=== PATIENT | male | born 1945 | race Caucasian/White ===

== ENCOUNTER → 2018-05-16 10:31 | Emergency (ER) | payer MEDICARE, MEDICAID ==
[~2018-05-16 10:31] MED LIST: Albuterol/Ipratropium NEB.SOL* Albuterol 2.5 MG/Ipratropium 0.5 MG 3 ML INH ONE; Levofloxacin 750 MG IVPREMIX(* 750 MG/150 ML BAG IVPB ONE; Levofloxacin TAB* 250 MG PO ONE; NS 0.9% 1000 ML* 1,000 ML IV ONE; methylPREDNISolone 125 MG* 2 ML VIAL IV ONE
--- OUTSIDE RECORDS SUMMARY | 2018-05-16 10:42 | XMS REPORT | Continuity of Care Document ---
:1945 External Reference #:[id number] Author Name Tori Obrien Care Team Providers Name Role Phone Alfa Barone MD Primary Care Physician Unavailable Payers Type Date Identification Numbers Payment Provider Subscriber Effective: 2007 Policy Number: [id number] Medicare [employer] [place] PayID: [id number] [address] [place] [address] Policy Number: [id number] Medicaid [place] PayID: [id number] [address] [place] [address] Effective: 2013 Policy Number: [id number] Va/ Non Va Care [employer] Expires: 2014 PayID: [id number] [address] [address] [place] [address] Advance Directives Type Date Description Status Comment Other Directive 01/18/2015 Power Of Test Center Administrator Current and Verified Other Directive 01/18/2015 Health Care Proxy Current and Verified Other Directive 01/18/2015 Living Will Current and Verified Problems Date Description Provider Status Onset: 01/13/2015 Idiopathic peripheral neuropathy Anirudh Larios MD Active Onset: 01/13/2015 Dementia Unspecified Without Anirudh Larios MD Active Behavioral Disturbance Onset: 04/06/2015 Hypo-osmolality and or hyponatremia Anirudh Larios MD Active Onset: 04/06/2015 Unspecified dementia without Anirudh Larios MD Active behavioral disturbance Onset: 04/21/2015 Essential hypertension Nic Hinton DO 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 Active Onset: 03/20/2016 Insomnia Alfa Barone M.D. Active Onset: 04/18/2016 Acquired trigger finger Alfa Barone M.D. Active Onset: 06/11/2016 Cervical disc disorder Alfa Barone M.D. Active Onset: 07/01/2016 Diabetic peripheral neuropathy Anirudh Larios MD Active associated with type 2 diabetes mellitus Onset: 10/16/2016 Solitary nodule of lung Alfa Barone M.D. Active Onset: 12/18/2016 Mixed hyperlipidemia Alfa Barone M.D. Active Family History Date Family Member(s) Problem(s) Comments General Diabetes Father due to Heart Disease () - Sister at age 68 in her sleep. One brother at age 60 of [place]. Another brother age 63 of [place]. Mother of CHF. Father age 51 of [place]. Mother due to COPD () Social History Type Date Description Comments Sex Unknown Marital Status Lives With Occupation Retired Tobacco Use Start: Unknown current cigarette Pt denies smoking pipe, smoker cigar, or using chewing tobacco. Smoking Status Reviewed: 04/22/18 current cigarette Pt denies smoking pipe, smoker cigar, or using chewing tobacco. ETOH Use Has consumed alcohol Past alcohol abuse in the past Tobacco Use Start: Unknown Patient is a current Smokes approximately smoker, smokes every 1/2 PPD day Recreational Drug Use Denies Drug Use Exercise Type/Frequency Does not exercise Allergies, Adverse Reactions, Alerts Description No Known Drug Allergies Medications Medication Date Status Form Strength Qnty SIG Indications Ordering Provider Gabapentin 01/13/ Active Capsules 300mg 360ca 1 by mouth in 2017 ps in the Harriet, morning and 3 MD at at night Incruse Ellipta 11/27/ Active Aerosol 62.5mcg/I 30uni inhale 1 puff 2017 nh ts by mouth Abisai every day Wendy Shower Chair 11/25/ Active 1unit Use as [place] 2017 venkata Barone M.D. Sertraline HCL 08/29/ Active Tablets 100mg 30tab 1 by mouth F33.0 Alfa 2017 s every day Wendy Baorne Namenda XR 08/23/ Active Caps ER 28mg 30cap 1 by mouth Anirudh 2016 24HR s every day MD Harriet Sertraline HCL 08/23/ Active Tablets 50mg 30tab 1 by mouth Alfa 2016 s every day Wendy Barone Bupropion HCL 01/30/ Active Tablets 300mg 30tab 1 tab in in F33.0 Zsofia ER (XL) 2015 ER 24HR s the morning Juanjo, MINE PROMOTOR Xopenex HFA 10/10/ Active Aerosol 45mcg/Act 45uni inhale two J44.9 Alfa 2015 ts puffs by Pachika mouth every , M.DKarolina four hours as needed Trazodone HCL 10/10/ Active Tablets 100mg 90tab take 1 tablet G47.00 Rodrick 2015 s by mouth Sean Farr, Every Night M.DKarolina,FACP AT Bedtime Symbicort 06/22/ Active Aerosol 80-4.5mcg 20.4u inhale 2 J44.9 Alfa 2015 /Act nits puffs by Pachika mouth twice a , M.D. day Hydrocodone-Julio C / Active Tablets 5-325mg 30tab 1 by mouth Alfa taminophen 0000 s every 12 Pachikara hours prn. , Wendy Vitamin D / Active Capsules 2000Unit 180ca 2 by mouth Alfa 0000 ps every day Wendy Barone Aspir-Low / Active Tablets 81mg 1 by mouth Unknown [address] every day Tamsulosin HCL / Active Capsules 0.4mg 90cap 1 by mouth [place] 0000 s every day Wendy Barone Verapamil HCL / Active Caps ER 120mg 90cap take 1 [place] ER 0000 24HR s capsule by Pachikara mouth once , M.D. daily Pravastatin / Active Tablets 40mg 30tab 1 tablet Alfa Sodium 0000 s daily at [facility] bedtime , M.DKarolina Namenda XR 07/16/ Hx Caps ER 7&14&21&2 1pack follow Anirudh Titration Pack 2016 - 24HR 8mg instructions Harriet 08/23/ on package 2016 Ketoconazole 01/30/ Hx Cream 2% 120gm apply twice a B37.9 Alfa 2015 Pachikara 07/01/ Wendy 2015 Sertraline HCL 09/13/ Hx Tablets 50mg 90tab 1 by mouth Alfa 2015 - s every day Pachikara 07/01/ Wendy 2015 Sertraline HCL 09/12/ Hx Tablets 50mg 30tab 1 by mouth Alfa 2015 - s every day Abisai 09/12/ Wendy 2015 Incruse Ellipta 08/16/ Hx Aerosol 62.5mcg/I 90uni one Alfa 2015 - nh ts inhalation Kileyra 08/19/ daily , Wendy 2015 Tudorza 07/11/ Hx Aerosol 400mcg/Ac 1unit 1 puff twice Alfa Flanagan 2015 - t s a day Pachikara 08/08/ Wendy 2015 Trazodone HCL 05/03/ Hx Tablets 50mg 180ta 1-2 tablet at G47.00 Alfa 2014 Thea bs bedtime as Pachikara 10/10/ needed , Wendy 2015 Proair HFA 04/19/ Hx Aerosol 108(90Bas 8.500 2 puffs ih J44.9 Alfa 2014 - e) gm every 4 hours Patriciaika 08/08/ mcg/Act as needed , Wendy 2015 Zolpidem 04/19/ Hx Tablets 10mg 30tab 1/2 to 1 tab G47.00 Alfa Tartrate 2014 - s by mouth Abisai 05/03/ every night Wendy 2014 at bedtime as needed Spiriva 04/19/ Hx Capsules 18mcg 90cap inhale J44.9 Zsofia Handihaler 2014 - contents of 1 Juanjo, 11/27/ capsule by MINE PROMOTOR 2018 mouth every morning Gabapentin 04/06/ Hx Capsules 300mg 270ca Take One Alfa 2014 - ps Capsule Every Pachikara 01/13/ Morning And 2 , Wendy 2018 Capsules Every Night Gabapentin 03/01/ Hx Capsules 100mg 90cap 1 by mouth Anirudh hastings every morning Harriet, 04/06/ and 2 every 2014 night Shower CH 03/01/ Hx One shower chair G60.8 Anirudh Larios, 01/12/ 2018 Amitriptyline 01/27/ Hx Tablets 10mg 120ta take 2 tabs Anirudh HCL 2015 - bs every night Harriet, 05/03/ at bedtime 2014 Namenda XR 10/04/ Hx Caps ER 7&14&21&2 1pack follow Anirudh Titration Pack 2015 - 24HR 8mg instructions Harriet, 10/31/ on package 2014 Diazepam 09/14/ Hx Tablets 2mg 4tabs 4 pills by 780.93 Anirudh 2015 - mouth prior Harriet, 10/31/ to mri 2014 Alprazolam / Hx Tablets 0.25mg as needed Unknown 0000 - 2014 Gabapentin / Hx Tablets 300mg 1 tab every Unknown 0000 - morning and 2 03/01/ tabs every 2014 night Citalopram / Hx Tablets 40mg 90tab 1 by mouth Alfa Hydrobromide 0000 - s every day Abisai 09/13/ Wendy 2015 Lisinopril / Hx Tablets 20mg 1/2 by mouth Unknown 0000 - every day 2014 Pravastatin / Hx Tablets 40mg 1 tablet Unknown Sodium 0000 - daily 2014 Atorvastatin / Hx Tablets 80mg 1 by mouth Unknown Calcium 0000 - every day 2016 Namenda XR / Hx Caps ER 28mg 1 by mouth Unknown 0000 - 24HR every day 2014 Bupropion HCL / Hx Tablets 150mg 180ta 1 by mouth Alfa ER (SR) 0000 - ER 12HR bs twice a day Abisai 01/30Wendy Currie 2016 Immunizations CPT Code Status Date Vaccine Reaction Lot # [id number] Given 01/07/2018 Tdap - [id number] Tetanus/Diptheria/Acellular Pertussis 42531 Given 09/18/2016 Pneumococcal Conjugate No immediate reaction - [id number] Vaccine 13 Valent For pw Intramuscular Use [id number] Given 03/05/2016 Fluzone Vaccine [id number] Given 03/22/2015 Influenza Virus 3Yrs & Over Vital Signs Date Vital Result Comment 04/22/2018 8:24am Height 69 inches 5'9" Weight 210.00 lb Heart Rate 68 /min BP Systolic 113 mmHg BP Diastolic 71 mmHg Body Temperature 97.3 F O2 % BldC Oximetry 94 % BMI (Body Mass Index) 31.0 kg/m2 01/13/2018 9:02am Height 69 inches 5'9" Weight 206.38 lb Heart Rate 70 /min BP Systolic 124 mmHg BP Diastolic 80 mmHg BMI (Body Mass Index) 30.5 kg/m2 01/07/2018 8:29am Height 69 inches 5'9" Weight 208.00 lb Heart Rate 87 /min BP Systolic Sitting 117 mmHg BP Diastolic Sitting 71 mmHg O2 % BldC Oximetry 94 % BMI (Body Mass Index) 30.7 kg/m2 10/07/2017 9:32am Height 69 inches 5'9" Weight 214.00 lb Heart Rate 80 /min BP Systolic 144 mmHg BP Diastolic 80 mmHg O2 % BldC Oximetry 97 % BMI (Body Mass Index) 31.6 kg/m2 08/29/2017 9:55am Height 69.25 inches 5'9.25" Weight 218.25 lb Heart Rate 103 /min BP Systolic Sitting 148 mmHg BP Diastolic Sitting 86 mmHg O2 % BldC Oximetry 91 % BMI (Body Mass Index) 32.0 kg/m2 03/20/2017 10:16am Height 69.25 inches 5'9.25" Weight 217.00 lb w/ shoes Heart Rate 82 /min reg BP Systolic Sitting 150 mmHg Lue, reg cuff BP Diastolic Sitting 80 mmHg Lue, reg cuff Respiratory Rate 16 /min O2 % BldC Oximetry 98 % on Ra BMI (Body Mass Index) 31.8 kg/m2 12/18/2016 8:51am Height 69.25 inches 5'9.25" Weight 210.00 lb Heart Rate 78 /min BP Systolic Sitting 130 mmHg BP Diastolic Sitting 76 mmHg Body Temperature 97.2 F O2 % BldC Oximetry 95 % BMI (Body Mass Index) 30.8 kg/m2 12/04/2016 10:16am Height 69.25 inches 5'9.25" Weight 207.00 lb Heart Rate 76 /min BP Systolic Sitting 126 mmHg BP Diastolic Sitting 80 mmHg BMI (Body Mass Index) 30.3 kg/m2 10/29/2016 7:56am Height 69.25 inches 5'9.25" Weight 209.00 lb Heart Rate 86 /min BP Systolic Sitting 118 mmHg BP Diastolic Sitting 70 mmHg Respiratory Rate 16 /min O2 % BldC Oximetry 97 % BMI (Body Mass Index) 30.6 kg/m2 10/16/2016 8:01pm Weight 209.00 lb BP Systolic Sitting 142 mmHg BP Diastolic Sitting 89 mmHg Body Temperature 98.0 F 09/18/2016 8:35am Weight 216.25 lb Heart Rate 82 /min BP Systolic 138 mmHg BP Diastolic 80 mmHg Body Temperature 97.6 F O2 % BldC Oximetry 96 % 07/01/2016 2:14pm Height 69.25 inches 5'9.25" Weight 216.12 lb Heart Rate 82 /min BP Systolic Sitting 128 mmHg BP Diastolic Sitting 82 mmHg BMI (Body Mass Index) 31.7 kg/m2 06/26/2016 9:27am Weight 215.00 lb Heart Rate 93 /min BP Systolic Sitting 110 mmHg BP Diastolic Sitting 76 mmHg Body Temperature 97.6 F O2 % BldC Oximetry 98 % 06/11/2016 1:34pm Height 69.5 inches 5'9.50" Weight 222.00 lb Heart Rate 74 /min BP Systolic Sitting 143 mmHg BP Diastolic Sitting 84 mmHg Body Temperature 97.6 F O2 % BldC Oximetry 98 % BMI (Body Mass Index) 32.3 kg/m2 04/18/2016 3:44pm Weight 222.12 lb Heart Rate 100 /min BP Systolic Sitting 157 mmHg BP Diastolic Sitting 93 mmHg Body Temperature 96.6 F O2 % BldC Oximetry 98 % 03/20/2016 8:52am Weight 229.00 lb Heart Rate 78 /min BP Systolic Sitting 138 mmHg BP Diastolic Sitting 80 mmHg Body Temperature 97.6 F O2 % BldC Oximetry 98 % 01/31/2016 2:20pm Height 69.5 inches 5'9.50" Weight 222.00 lb Heart Rate 96 /min BP Systolic Sitting 136 mmHg BP Diastolic Sitting 84 mmHg Respiratory Rate 15 /min Body Temperature 97.8 F O2 % BldC Oximetry 97 % BMI (Body Mass Index) 32.3 kg/m2 12/13/2015 2:22pm Heart Rate 83 /min BP Systolic Sitting 120 mmHg BP Diastolic Sitting 80 mmHg Body Temperature 98.5 F O2 % BldC Oximetry 96 % 10/11/2015 7:57am Weight 229.00 lb Heart Rate 60 /min BP Systolic Sitting 115 mmHg BP Diastolic Sitting 63 mmHg Body Temperature 97.8 F O2 % BldC Oximetry 98 % 10/02/2015 10:22am Height 70 inches 5'10" Weight 228.00 lb Heart Rate 76 /min BP Systolic Sitting 126 mmHg BP Diastolic Sitting 70 mmHg Respiratory Rate 14 /min BMI (Body Mass Index) 32.7 kg/m2 08/09/2015 4:23pm Height 70 inches 5'10" Weight 220.00 lb Heart Rate 71 /min BP Systolic Sitting 126 mmHg BP Diastolic Sitting 72 mmHg Body Temperature 98.8 F O2 % BldC Oximetry 94 % BMI (Body Mass Index) 31.6 kg/m2 06/22/2015 9:12am Height 70 inches 5'10" Weight 213.50 lb Heart Rate 78 /min BP Systolic 130 mmHg BP Diastolic 80 mmHg Respiratory Rate 14 /min O2 % BldC Oximetry 92 % BMI (Body Mass Index) 30.6 kg/m2 Neck Circumference in inches 16.5 05/10/2015 8:33am Height 70 inches 5'10" Weight 201.00 lb w/o shoes Heart Rate 78 /min BP Systolic Sitting 136 mmHg Rue, reg cuff BP Diastolic Sitting 86 mmHg Rue, reg cuff BP Systolic Standing 130 mmHg Rue BP Diastolic Standing 86 mmHg Rue Respiratory Rate 16 /min BMI (Body Mass Index) 28.8 kg/m2 Ejection Fraction 60-65% as of 05/05/15 echo 05/03/2015 4:03pm Height 70 inches 5'10" Weight 203.00 lb Heart Rate 64 /min BP Systolic Sitting 128 mmHg BP Diastolic Sitting 84 mmHg Body Temperature 98.2 F O2 % BldC Oximetry 98 % BMI (Body Mass Index) 29.1 kg/m2 04/21/2015 9:05am Height 70 inches 5'10" Weight 197.75 lb Heart Rate 74 /min BP Systolic Sitting 130 mmHg left arm, reg cuff BP Diastolic Sitting 82 mmHg left arm, reg cuff BMI (Body Mass Index) 28.4 kg/m2 04/19/2015 3:01pm Weight 201.00 lb Heart Rate 84 /min BP Systolic Sitting 137 mmHg BP Diastolic Sitting 84 mmHg Body Temperature 96.5 F 04/06/2015 1:39pm Height 70 inches 5'10" Weight 198.00 lb Heart Rate 72 /min BP Systolic Sitting 142 mmHg BP Diastolic Sitting 84 mmHg Respiratory Rate 16 /min BMI (Body Mass Index) 28.4 kg/m2 03/01/2015 9:20am Height 70 inches 5'10" Weight 180.00 lb Heart Rate 72 /min BP Systolic Sitting 122 mmHg BP Diastolic Sitting 84 mmHg Respiratory Rate 14 /min BMI (Body Mass Index) 25.8 kg/m2 01/13/2015 1:43pm Height 70 inches 5'10" Weight 191.00 lb Heart Rate 68 /min BP Systolic Standing 136 mmHg BP Diastolic Standing 84 mmHg Respiratory Rate 16 /min BMI (Body Mass Index) 27.4 kg/m2 11/01/2014 2:21pm Height 70 inches 5'10" Weight 189.00 lb Heart Rate 76 /min BP Systolic Sitting 114 mmHg BP Diastolic Sitting 66 mmHg Respiratory Rate 16 /min BMI (Body Mass Index) 27.1 kg/m2 09/14/2014 10:11am Height 70 inches 5'10" Weight 190.00 lb Heart Rate 68 /min BP Systolic Sitting 134 mmHg BP Diastolic Sitting 76 mmHg Respiratory Rate 16 /min BMI (Body Mass Index) 27.3 kg/m2 Results Test Date Facility Test Result H/L Range Note Basic Metabolic 01/01/2018 Sodium 135 mmol/L N 135- 145 Panel [address] [place] [address] [phone] Potassium 4.4 mmol/L N 3.5-5.0 Chloride 100 mmol/L Low 101-111 Co2 Carbon Dioxide 26 mmol/L N 22-32 Anion Gap 9 mmol/L N 2-11 Glucose 102 mg/dL High 70-100 Blood Urea Nitrogen 5 mg/dL Low 6-24 Creatinine 0.65 mg/dL Low 0.67-1.17 BUN/Creatinine Ratio 7.7 Low 8-20 Calcium 8.6 mg/dL N 8.6-10.3 Egfr Non- 120.4 >60 Egfr 145.7 >60 1 Lipid Profile 08/29/2017 Triglycerides 78 mg/dL 2, 3 (Trig/Chol/HDL) [address] [place] [address] [phone] Cholesterol 146 mg/dL 4 HDL Cholesterol 40.2 mg/dL 5 LDL Cholesterol 90 mg/dL 6 Comp Metabolic Panel 08/29/2017 Sodium 133 mmol/L Low 139-145 [address] [place] [address] [phone] Potassium 4.6 mmol/L N 3.5-5.0 Chloride 98 mmol/L Low 101-111 Co2 Carbon Dioxide 26 mmol/L N 22-32 Anion Gap 9 mmol/L N 2-11 Glucose 85 mg/dL N 70-100 Blood Urea Nitrogen 5 mg/dL Low 6-24 Creatinine 0.70 mg/dL N 0.67-1.17 BUN/Creatinine Ratio 7.1 Low 8-20 Calcium 9.0 mg/dL N 8.6-10.3 Total Protein 6.5 g/dL N 6.4-8.9 Albumin 3.9 g/dL N 3.2-5.2 Globulin 2.6 g/dL N 2-4 Albumin/Globulin Ratio 1.5 N 1-3 Total Bilirubin 0.60 mg/dL N 0.2-1.0 Alkaline Phosphatase 75 U/L N 34-104 Alt 7 U/L N 7-52 Ast 12 U/L Low 13-39 Egfr Non- 110.5 >60 Egfr 142.2 >60 7 Laboratory test 12/18/2016 Osmolality 164 mOsm/kg N 150 - [address] Urine 1150 [place] [address] [phone] Sodium Random Urine 23 mmol/L N Osmolality Serum 270 mOsm/kg Low 275 - 295 9 Comp Metabolic Panel 12/16/2016 Sodium 121 mmol/L Low 133-[address] [place] [address] [phone] Potassium 4.4 mmol/L N 3.5-5.0 Chloride 93 mmol/L Low 101-111 Co2 Carbon Dioxide 26 mmol/L N 22-32 Anion Gap 2 mmol/L N 2-11 Glucose 77 mg/dL N 70-100 Blood Urea Nitrogen 5 mg/dL Low 6-24 Creatinine 0.74 mg/dL N 0.67-1.17 BUN/Creatinine Ratio 6.8 Low 8-20 Calcium 8.6 mg/dL N 8.6-10.3 Total Protein 6.0 g/dL Low 6.4-8.9 Albumin 3.6 g/dL N 3.2-5.2 Globulin 2.4 g/dL N 2-4 Albumin/Globulin Ratio 1.5 N 1-3 Total Bilirubin 0.70 mg/dL N 0.2-1.0 Alkaline Phosphatase 60 U/L N 34-104 Alt 6 U/L Low 7-52 Ast 10 U/L Low 13-39 Egfr Non- 104.0 N >60 Egfr 133.7 N >60 10 Laboratory 09/19/2016 Hepatitis C Nonreactive N Nonreactive test finding [address] [place] [address] [phone] Basic 06/26/2016 Sodium 130 mmol/L Low 133-[address] [place] [address] [phone] Potassium 4.2 mmol/L N 3.5-5.0 Chloride 97 mmol/L Low 101-111 Co2 Carbon Dioxide 27 mmol/L N 22-32 Anion Gap 6 mmol/L N 2-11 Glucose 96 mg/dL N 70-100 Blood Urea Nitrogen 6 mg/dL N 6-24 Creatinine 1.06 mg/dL N 0.67-1.17 BUN/Creatinine Ratio 5.7 Low 8-20 Calcium 9.1 mg/dL N 8.6-10.3 Egfr Non- 68.9 N >60 Egfr 88.6 N >60 11 Basic Metabolic 04/29/2016 Sodium 129 mmol/L Low 133-[address] [place] [address] [phone] Potassium 4.3 mmol/L N 3.5-5.0 Chloride 99 mmol/L Low 101-111 Co2 Carbon Dioxide 24 mmol/L N 22-32 Anion Gap 6 mmol/L N 2-11 Glucose 80 mg/dL N 70-100 Blood Urea Nitrogen 6 mg/dL N 6-24 Creatinine 0.81 mg/dL N 0.67-1.17 BUN/Creatinine Ratio 7.4 Low 8-20 Calcium 8.9 mg/dL N 8.6-10.3 Egfr Non- 93.9 N >60 Egfr 120.8 N >60 12 Basic Metabolic 01/30/2016 Sodium 132 mmol/L Low 133-[address] [place] [address] [phone] Potassium 4.4 mmol/L N 3.5-5.0 Chloride 96 mmol/L Low 101-111 Co2 Carbon Dioxide 29 mmol/L N 22-32 Anion Gap 7 mmol/L N 2-11 Glucose 81 mg/dL N 70-100 Blood Urea Nitrogen 9 mg/dL N 6-24 Creatinine 0.75 mg/dL N 0.67-1.17 BUN/Creatinine Ratio 12.0 N 8-20 Calcium 9.1 mg/dL N 8.6-10.3 Egfr Non- 102.7 N >60 Egfr 132.0 N >60 13 Lipid Profile 01/30/2016 Triglycerides 82 mg/dL N 14 (Trig/Chol/HDL) [address] [place], [place] [id number] [phone] Cholesterol 123 mg/dL N 15 HDL Cholesterol 34.5 mg/dL N 16 LDL Cholesterol 72 mg/dL N 17 Urine Microalbumin 01/30/2016 Urine Creatinine 30.61 mg/dL N Random [address] [place] [address] [phone] Ur Microalbumin (mg/L) < 15.0 mg/L N Urine Microalbumin/Creatinine TNP ug/mg N <31 18 Sodium 24HR Urine 11/02/2015 Urine Collection Time 24 [address] [place] [address] [phone] Urine Total Volume 2000 mL N Urine Random Sodium 24 mmol/L N Urine Sodium/24HR 48 mmol/24 N 40-220 Laboratory test 11/02/2015 Osmolality 220 mOsm/kg N 150-[address] [place] [address] [phone] Osmolality Serum 277 mOsm/kg N 275-295 Comp Metabolic Panel 10/11/2015 Sodium 127 mmol/L Low 133-145 [address] [place] [address] [phone] Potassium 4.5 mmol/L N 3.5-5.0 Chloride 94 mmol/L Low 101-111 Co2 Carbon Dioxide 27 mmol/L N 22-32 Anion Gap 6 mmol/L N 2-11 Glucose 73 mg/dL N 70-100 Blood Urea Nitrogen 7 mg/dL N 6-24 Creatinine 0.81 mg/dL N 0.67-1.17 BUN/Creatinine Ratio 8.6 N 8-20 Calcium 8.4 mg/dL Low 8.6-10.3 Total Protein 6.4 g/dL N 6.4-8.9 Albumin 4.0 g/dL N 3.2-5.2 Globulin 2.4 g/dL N 2-4 Albumin/Globulin Ratio 1.7 N 1-3 Total Bilirubin 0.40 mg/dL N 0.2-1.0 Alkaline Phosphatase 60 U/L N 34-104 Alt 7 U/L N 7-52 Ast 11 U/L Low 13-39 Egfr Non- 93.9 N >60 Egfr 120.8 N >60 19 Laboratory test 06/29/2015 Surgical SEE RESULT [address] [place] [address] [phone] Basic Metabolic 05/23/2015 Sodium 131 mmol/L Low 133-[address] [place] [address] [phone] Potassium 5.0 mmol/L N 3.5-5.0 Chloride 99 mmol/L Low 101-111 Co2 Carbon Dioxide 28 mmol/L N 22-32 Anion Gap 4 mmol/L N 2-11 Glucose 75 mg/dL N 70-100 Blood Urea Nitrogen 6 mg/dL N 6-24 Creatinine 0.83 mg/dL N 0.67-1.17 BUN/Creatinine Ratio 7.2 Low 8-20 Calcium 8.7 mg/dL N 8.6-10.3 Egfr Non- 91.6 N >60 Egfr 117.8 N >60 21 Basic Metabolic 05/18/2015 Sodium 131 mmol/L Low 133-[address] [place] [address] [phone] Potassium 4.8 mmol/L N 3.5-5.0 Chloride 99 mmol/L Low 101-111 Co2 Carbon Dioxide 26 mmol/L N 22-32 Anion Gap 6 mmol/L N 2-11 Glucose 80 mg/dL N 70-100 Blood Urea Nitrogen 6 mg/dL N 6-24 Creatinine 0.80 mg/dL N 0.67-1.17 BUN/Creatinine Ratio 7.5 Low 8-20 Calcium 8.7 mg/dL N 8.6-10.3 Egfr Non- 95.6 N >60 Egfr 122.9 N >60 22 Basic Metabolic 05/03/2015 Sodium 130 mmol/L Low 133-[address] [place] [address] [phone] Potassium 4.8 mmol/L N 3.5-5.0 Chloride 97 mmol/L Low 101-111 Co2 Carbon Dioxide 27 mmol/L N 22-32 Anion Gap 6 mmol/L N 2-11 Glucose 74 mg/dL N 70-100 Blood Urea Nitrogen 5 mg/dL Low 6-24 Creatinine 0.84 mg/dL N 0.67-1.17 BUN/Creatinine Ratio 6.0 Low 8-20 Calcium 8.7 mg/dL N 8.6-10.3 Egfr Non- 90.3 N >60 Egfr 116.2 N >60 23 Laboratory test 04/19/2015 Tube Cleaner In House Hemoglobin A1c 4.7 Low 5-7 finding Laboratory test 04/19/2015 Osmolality Serum 270 Low 275-[address] mOsm/[place] [address] [phone] Comp Metabolic 04/19/2015 Sodium 128 mmol/L Low 133 -[address] [place] [address] [phone] Potassium 4.3 mmol/L N 3.5-5.0 Chloride 95 mmol/L Low 101-111 Co2 Carbon Dioxide 27 mmol/L N 22-32 Anion Gap 6 mmol/L N 2-11 Glucose 71 mg/dL N 70-100 Blood Urea Nitrogen 5 mg/dL Low 6-24 Creatinine 0.81 mg/dL N 0.67-1.17 BUN/Creatinine Ratio 6.2 Low 8-20 Calcium 8.7 mg/dL N 8.6-10.3 Total Protein 6.2 g/dL Low 6.4-8.9 Albumin 3.9 g/dL N 3.2-5.2 Globulin 2.3 g/dL N 2-4 Albumin/Globulin Ratio 1.7 N 1-3 Total Bilirubin 0.60 mg/dL N 0.2-1.0 Alkaline Phosphatase 62 U/L N 34-104 Alt 9 U/L N 7-52 Ast 12 U/L Low 13-39 Egfr Non- 94.2 N >60 Egfr 121.2 N >60 24 Laboratory test 04/19/2015 Cortisol 5.15 ?g/dL N [address] [place] [address] [phone] Laboratory test 04/19/2015 Osmolality Urine 234 mOsm/ kg N 150-[address] [place] [address] [phone] Sodium Random Urine 28 mmol/L N BMP Basic Metabolic 04/07/2015 Sodium 127 mmol/L Low 133-145 Panel (8) [address] [place] [address] [phone] Potassium 4.6 mmol/L N 3.5-5.0 Chloride 94 mmol/L Low 101-111 Co2 Carbon Dioxide 27 mmol/L N 22-32 Anion Gap 6 mmol/L N 2-11 Glucose 80 mg/dL N 70-100 Blood Urea Nitrogen 4 mg/dL Low 6-24 Creatinine 0.83 mg/dL N 0.67-1.17 BUN/Creatinine Ratio 4.8 Low 8-20 Calcium 8.7 mg/dL N 8.6-10.3 Egfr Non- 91.6 N >60 Egfr 117.8 N >60 26 Amitriptyline Level 03/30/2015 Amitriptyline 248 ng/ mL N 27 [address] [place] [address] [phone] Nortriptyline 29 ng/mL Abnormal 28 Amitriptyline+Nortriptyline 277 ng/mL Abnormal 29 Comp Metabolic Panel 03/30/2015 Sodium 125 mmol/L Low 133-145 [address] [place] [address] [phone] Potassium 4.8 mmol/L N 3.5-5.0 Chloride 93 mmol/L Low 101-111 Co2 Carbon Dioxide 27 mmol/L N 22-32 Anion Gap 5 mmol/L N 2-11 Glucose 77 mg/dL N 70-100 Blood Urea Nitrogen 6 mg/dL N 6-24 Creatinine 0.77 mg/dL N 0.67-1.17 BUN/Creatinine Ratio 7.8 Low 8-20 Calcium 8.7 mg/dL N 8.6-10.3 Total Protein 6.6 g/dL N 6.4-8.9 Albumin 3.8 g/dL N 3.2-5.2 Globulin 2.8 g/dL N 2-4 Albumin/Globulin Ratio 1.4 N 1-3 Total Bilirubin 0.40 mg/dL N 0.2-1.0 Alkaline Phosphatase 93 U/L N 34-104 Alt 17 U/L N 7-52 Ast 13 U/L N 13-39 Egfr Non- 99.9 N >60 Egfr 128.4 N >60 30 Laboratory test 09/29/2014 TSH (Thyroid 0.69 IU/mL N 0.34-5.[address] [place] [address] Horm) [phone] Vitamin B12 325 pg/mL N 180-914 31 Folate 14.12 ng/mL N >3.99 Ammonia 46 mol/L N 16-53 1 Because ethnic data is not always readily available, this report includes an eGFR for both -Americans and non- Americans. The National Kidney Disease Education Program (NKDEP) does not endorse the use of the MDRD equation for patients that are not between the ages of 18 and 70, are , have extremes of body size, muscle mass, or nutritional status, or are non- or non-. According to the [employer], irrespective of diagnosis, the stage of the disease is based on the level of kidney function: Stage Description GFR(mL/min/1.73 m(2)) 1 Kidney damage with normal or decreased GFR 90 2 Kidney damage with mild decrease in GFR 60-89 3 Moderate decrease in GFR 30-59 4 Severe decrease in GFR 15-29 5 Kidney failure <15 (or dialysis) 2 FASTING 3 Desirable: <150 Borderline High: 150-199 High: 200-499 Very High: >500 4 Desirable: <200 Borderline High: 200-239 High: >239 5 Low: <40 Desirable: 40-60 High: >60 6 Desirable: <100 Near Optimal: 100-129 Borderline High: 130-159 High: 160-189 Very High: >189 7 Because ethnic data is not always readily available, this report includes an eGFR for both -Americans and non- Americans. The National Kidney Disease Education Program (NKDEP) does not endorse the use of the MDRD equation for patients that are not between the ages of 18 and 70, are , have extremes of body size, muscle mass, or nutritional status, or are non- or non-. According to the National Kidney Foundation, irrespective of diagnosis, the stage of the disease is based on the level of kidney function: Stage Description GFR(mL/min/1.73 m(2)) 1 Kidney damage with normal or decreased GFR 90 2 Kidney damage with mild decrease in GFR 60-89 3 Moderate decrease in GFR 30-59 4 Severe decrease in GFR 15-29 5 Kidney failure <15 (or dialysis) 8 Test Performed by: [facility] [address] [place] [address] 9 Test Performed by: [facility] [address] [place] [address] 10 Because ethnic data is not always readily available, this report includes an eGFR for both -Americans and non- Americans. The National Kidney Disease Education Program (NKDEP) does not endorse the use of the MDRD equation for patients that are not between the ages of 18 and 70, are , have extremes of body size, muscle mass, or nutritional status, or are non- or non-. According to the National Kidney Foundation, irrespective of diagnosis, the stage of the disease is based on the level of kidney function: Stage Description GFR(mL/min/1.73 m(2)) 1 Kidney damage with normal or decreased GFR 90 2 Kidney damage with mild decrease in GFR 60-89 3 Moderate decrease in GFR 30-59 4 Severe decrease in GFR 15-29 5 Kidney failure <15 (or dialysis) 11 Because ethnic data is not always readily available, this report includes an eGFR for both -Americans and non- Americans. The National Kidney Disease Education Program (NKDEP) does not endorse the use of the MDRD equation for patients that are not between the ages of 18 and 70, are , have extremes of body size, muscle mass, or nutritional status, or are non- or non-. According to the National Kidney Foundation, irrespective of diagnosis, the stage of the disease is based on the level of kidney function: Stage Description GFR(mL/min/1.73 m(2)) 1 Kidney damage with normal or decreased GFR 90 2 Kidney damage with mild decrease in GFR 60-89 3 Moderate decrease in GFR 30-59 4 Severe decrease in GFR 15-29 5 Kidney failure <15 (or dialysis) 12 Because ethnic data is not always readily available, this report includes an eGFR for both -Americans and non- Americans. The National Kidney Disease Education Program (NKDEP) does not endorse the use of the MDRD equation for patients that are not between the ages of 18 and 70, are , have extremes of body size, muscle mass, or nutritional status, or are non- or non-. According to the National Kidney Foundation, irrespective of diagnosis, the stage of the disease is based on the level of kidney function: Stage Description GFR(mL/min/1.73 m(2)) 1 Kidney damage with normal or decreased GFR 90 2 Kidney damage with mild decrease in GFR 60-89 3 Moderate decrease in GFR 30-59 4 Severe decrease in GFR 15-29 5 Kidney failure <15 (or dialysis) 13 Because ethnic data is not always readily available, this report includes an eGFR for both -Americans and non- Americans. The National Kidney Disease Education Program (NKDEP) does not endorse the use of the MDRD equation for patients that are not between the ages of 18 and 70, are , have extremes of body size, muscle mass, or nutritional status, or are non- or non-. According to the National Kidney Foundation, irrespective of diagnosis, the stage of the disease is based on the level of kidney function: Stage Description GFR(mL/min/1.73 m(2)) 1 Kidney damage with normal or decreased GFR 90 2 Kidney damage with mild decrease in GFR 60-89 3 Moderate decrease in GFR 30-59 4 Severe decrease in GFR 15-29 5 Kidney failure <15 (or dialysis) 14 Desirable <150 Borderline high 150-199 High 200-499 Very High >500 15 Desirable <200 Borderline high 200-239 High >239 16 Low <40 Desirable: 40-60 High: >60 17 Desirable: <100 mg/dL Near Optimal: 100-129 mg/dL Borderline High: 130-159 mg/dL High: 160-189 mg/dL Very High: >189 mg/dL 18 Unable to calculate due to low microalbumin 19 Because ethnic data is not always readily available, this report includes an eGFR for both -Americans and non- Americans. The National Kidney Disease Education Program (NKDEP) does not endorse the use of the MDRD equation for patients that are not between the ages of 18 and 70, are , have extremes of body size, muscle mass, or nutritional status, or are non- or non-. According to the National Kidney Foundation, irrespective of diagnosis, the stage of the disease is based on the level of kidney function: Stage Description GFR(mL/min/1.73 m(2)) 1 Kidney damage with normal or decreased GFR 90 2 Kidney damage with mild decrease in GFR 60-89 3 Moderate decrease in GFR 30-59 4 Severe decrease in GFR 15-29 5 Kidney failure <15 (or dialysis) 20 SEE RESULT BELOW Name: IDANIATRES DIANA : [address]: Chao Boothe MD Acct: [id number] Unit: [id number] AGE: 69 Location: [facility] Re06/29/15 SEX: M Status: REG REF SPEC: [id number] [place]: 06/29/[address] [facility] [address]: Chao Boothe MD REQ: [id number] RECD: 06/29/15-1221 STATUS: DEV PAGAN DR: Alfa Barone MD _ ORDERED: LEVEL IV FINAL DIAGNOSIS Colon, cecum, biopsy: -- Sessile serrated adenoma. -- No high grade dysplasia or malignancy. CLINICAL HISTORY Screening colonoscopy with positive family history of colon cancer (brother) POST-OPERATIVE DIAGNOSIS Colonoscopy into cecum, prep good - small cecal polyp removed GROSS DESCRIPTION The specimen is received in formalin labeled, Cecal Polyp Snare, and consists of a 1.0 x 0.9 x 0.3 cm aggregate of richter-pink irregular soft tissue fragments admixed with organic debris. Entirely submitted, one cassette. Signed (signature on file) Elvira Titus MD 1214 END OF REPORT * ML=Testing performed at Main Lab DEPARTMENT OF PATHOLOGY, [address] [place] [address] Maurice Frank M.D. Director [facility] # [id number] 21 Because ethnic data is not always readily available, this report includes an eGFR for both -Americans and non- Americans. The National Kidney Disease Education Program (NKDEP) does not endorse the use of the MDRD equation for patients that are not between the ages of 18 and 70, are , have extremes of body size, muscle mass, or nutritional status, or are non- or non-. According to the National Kidney Foundation, irrespective of diagnosis, the stage of the disease is based on the level of kidney function: Stage Description GFR(mL/min/1.73 m(2)) 1 Kidney damage with normal or decreased GFR 90 2 Kidney damage with mild decrease in GFR 60-89 3 Moderate decrease in GFR 30-59 4 Severe decrease in GFR 15-29 5 Kidney failure <15 (or dialysis) 22 Because ethnic data is not always readily available, this report includes an eGFR for both -Americans and non- Americans. The National Kidney Disease Education Program (NKDEP) does not endorse the use of the MDRD equation for patients that are not between the ages of 18 and 70, are , have extremes of body size, muscle mass, or nutritional status, or are non- or non-. According to the National Kidney Foundation, irrespective of diagnosis, the stage of the disease is based on the level of kidney function: Stage Description GFR(mL/min/1.73 m(2)) 1 Kidney damage with normal or decreased GFR 90 2 Kidney damage with mild decrease in GFR 60-89 3 Moderate decrease in GFR 30-59 4 Severe decrease in GFR 15-29 5 Kidney failure <15 (or dialysis) 23 Because ethnic data is not always readily available, this report includes an eGFR for both -Americans and non- Americans. The National Kidney Disease Education Program (NKDEP) does not endorse the use of the MDRD equation for patients that are not between the ages of 18 and 70, are , have extremes of body size, muscle mass, or nutritional status, or are non- or non-. According to the National Kidney Foundation, irrespective of diagnosis, the stage of the disease is based on the level of kidney function: Stage Description GFR(mL/min/1.73 m(2)) 1 Kidney damage with normal or decreased GFR 90 2 Kidney damage with mild decrease in GFR 60-89 3 Moderate decrease in GFR 30-59 4 Severe decrease in GFR 15-29 5 Kidney failure <15 (or dialysis) 24 Because ethnic data is not always readily available, this report includes an eGFR for both -Americans and non- Americans. The National Kidney Disease Education Program (NKDEP) does not endorse the use of the MDRD equation for patients that are not between the ages of 18 and 70, are , have extremes of body size, muscle mass, or nutritional status, or are non- or non-. According to the National Kidney Foundation, irrespective of diagnosis, the stage of the disease is based on the level of kidney function: Stage Description GFR(mL/min/1.73 m(2)) 1 Kidney damage with normal or decreased GFR 90 2 Kidney damage with mild decrease in GFR 60-89 3 Moderate decrease in GFR 30-59 4 Severe decrease in GFR 15-29 5 Kidney failure <15 (or dialysis) 25 AM 8.7-22.4 PM <10 26 Because ethnic data is not always readily available, this report includes an eGFR for both -Americans and non- Americans. The National Kidney Disease Education Program (NKDEP) does not endorse the use of the MDRD equation for patients that are not between the ages of 18 and 70, are , have extremes of body size, muscle mass, or nutritional status, or are non- or non-. According to the National Kidney Foundation, irrespective of diagnosis, the stage of the disease is based on the level of kidney function: Stage Description GFR(mL/min/1.73 m(2)) 1 Kidney damage with normal or decreased GFR 90 2 Kidney damage with mild decrease in GFR 60-89 3 Moderate decrease in GFR 30-59 4 Severe decrease in GFR 15-29 5 Kidney failure <15 (or dialysis) 27 REFERENCE VALUE Not applicable 28 REFERENCE VALUE 70-170 (Therapeutic concentration), >=300 (Toxic concentration) 29 REFERENCE VALUE 80-200 (Total therapeutic concentration), >=300 (Total toxic concentration) Test Performed by: [facility] [place] [address] Health Care Legal Assistant: Lenora Sims, Ph.D. 30 Because ethnic data is not always readily available, this report includes an eGFR for both -Americans and non- Americans. The National Kidney Disease Education Program (NKDEP) does not endorse the use of the MDRD equation for patients that are not between the ages of 18 and 70, are , have extremes of body size, muscle mass, or nutritional status, or are non- or non-. According to the National Kidney Foundation, irrespective of diagnosis, the stage of the disease is based on the level of kidney function: Stage Description GFR(mL/min/1.73 m(2)) 1 Kidney damage with normal or decreased GFR 90 2 Kidney damage with mild decrease in GFR 60-89 3 Moderate decrease in GFR 30-59 4 Severe decrease in GFR 15-29 5 Kidney failure <15 (or dialysis) 31 Normal Range 180 to 914 Indeterminate Range 145 to 180 Deficient Range <145 Procedures Date Code Description Status 08/24/2015 69322 Diffusing Capacity Completed 08/24/2015 [id number] Plethysmography Determination Lung Volumes & Per Airway Completed Resist 08/24/2015 47774 Pulmonary Function><Bronchodil Completed 06/29/2015 [id number] Colonoscopy Completed 05/05/2015 88732 ECHO Transthoracic, Real-Time 2D With Doppler And Color Completed Flow 04/21/2015 31316 EKG Tracing & Interpretation Completed Encounters Type Date Location Provider Dx Diagnosis Office Visit 01/13/2018 [facility] An[facility]h Larios, 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 [place] I10 Essential (primary) hypertension J44.9 Chronic obstructive pulmonary disease, unspecified E11.42 Type 2 diabetes mellitus with diabetic polyneuropathy Z87.891 Personal history of nicotine dependence Office Visit 08/29/2017 [facility] Alfa E87.1 Hypo-osmolality and 11:00a Shahana Barone M.D. hyponatremia [address] I10 Essential (primary) hypertension E78.2 Mixed hyperlipidemia F17.210 Nicotine dependence, cigarettes, uncomplicated F33.0 Major depressive disorder, recurrent, mild Office Visit 03/20/2017 10:45a [facility] [place] J44.9 Chronic Sleep Services Of MD Luis Eduardo obstructive [employer] pulmonary disease, unspecified G47.33 Obstructive sleep apnea (adult) (pediatric) F17.210 Nicotine dependence, cigarettes, uncomplicated Office Visit 12/18/2016 [facility] Alfa E87.1 Hypo-osmolality and 9:20a Shahana Barone M.D. hyponatremia [place] J44.9 Chronic obstructive pulmonary disease, unspecified I10 Essential (primary) hypertension E78.2 Mixed hyperlipidemia Office Visit 12/04/2016 [facility] F01.51 Vascular 10:15a Clinic MD [place] dementia with behavioral disturbance G60.9 Hereditary and idiopathic neuropathy, unspecified Office Visit 10/29/2016 8:00a [facility] [place] R91.1 Solitary [facility] Services Of MD Luis Eduardo pulmonary nodule [facility] J44.9 Chronic obstructive pulmonary disease, unspecified F17.210 Nicotine dependence, cigarettes, uncomplicated Office Visit 10/16/2016 4:40p [facility] Internal lAfa R91.1 Solitary Shahana Barone M.D. pulmonary nodule [place] Office Visit 09/18/2016 9:00a [facility] Alfa J44.9 Chronic Shahana Barone M.D. obstructive [place] pulmonary disease, unspecified I10 Essential (primary) hypertension F17.210 Nicotine dependence, cigarettes, uncomplicated F33.0 Major depressive disorder, recurrent, mild Z12.2 Encntr screen for malignant neoplasm of respiratory organs Z11.59 Encounter for screening for other viral diseases Z23 Encounter for immunization Office 07/01/2016 [facility] E11.42 Type 2 diabetes Visit 2:30p Clinic MD [place] mellitus with diabetic polyneuropathy F01.51 Vascular dementia with behavioral disturbance Office Visit 06/26/2016 [facility] Al[place] E87.1 Hypo-osmolality and 9:40a Shahana Barone M.D. 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 disorder w [address] radiculopathy, unsp cervical region Office Visit 04/18/2016 [facility] Alfa M65.352 Trigger finger, 3:20p Shahana Barone M.D. left little finger [address] Z01.818 Encounter for other preprocedural examination I10 Essential (primary) hypertension J44.9 Chronic obstructive pulmonary disease, unspecified Office Visit 03/20/2016 9:20a [facility] Alfa Barone, I10 Essential Medicine Thea Nguyen (primary) [place] hypertension J44.9 Chronic obstructive pulmonary disease, unspecified F01.51 Vascular dementia with behavioral disturbance F17.210 Nicotine dependence, cigarettes, uncomplicated F33.0 Major depressive disorder, recurrent, mild G47.00 Insomnia, unspecified Office Visit 12/13/2015 2:20p [facility] [place]fa F01.51 Vascular dementia Shahana Barone M.D. with behavioral [address] disturbance F33.0 Major depressive disorder, recurrent, mild Office Visit 10/11/2015 8:00a [facility] [place] J44.9 Chronic Shahana Barone M.D. obstructive [place] pulmonary disease, unspecified I10 Essential (primary) hypertension E87.1 Hypo-osmolality and hyponatremia E11.9 Type 2 diabetes mellitus without complications Office Visit 10/02/2015 10:00a [facility] Anirudh Larios, F01.51 Vascular dementia Services Of [facility] with behavioral disturbance G60.8 Other hereditary and idiopathic neuropathies F01.50 Vascular dementia without behavioral disturbance G60.9 Hereditary and idiopathic neuropathy, unspecified Office Visit 08/09/2015 4:20p [facility] [place] J44.9 Chronic Shahana Barone M.D. obstructive [place] pulmonary disease, unspecified I10 Essential (primary) hypertension E87.1 Hypo-osmolality and hyponatremia E78.5 Hyperlipidemia, unspecified Office Visit 06/22/2015 8:45a [facility] [place] J44.9 Chronic [facility] Of [facility] Eduardo obstructive [employer] pulmonary disease, unspecified G47.9 Sleep disorder, unspecified F17.210 Nicotine dependence, cigarettes, uncomplicated Office Visit 05/10/2015 8:45a [facility] Nic S. R06.00 Dyspnea, Of [facility] [place], DO unspecified FACC F17.210 Nicotine dependence, cigarettes, uncomplicated J44.9 Chronic obstructive pulmonary disease, unspecified Office Visit 05/03/2015 4:00p [facility] [place] G47.00 Insomnia, Shahana Barone M.D. unspecified [place] E87.1 Hypo-osmolality and hyponatremia Office Visit 04/21/2015 9:00a [facility] Nic S. R06.02 Shortness of [place], DO breath FACC Z82.49 Family hx of ischem heart dis and oth dis of the circ sys R94.31 Abnormal electrocardiogram [ECG] [EKG] I10 Essential (primary) hypertension E78.5 Hyperlipidemia, unspecified F17.210 Nicotine dependence, cigarettes, uncomplicated Office Visit 04/19/2015 3:00p [facility] [place] Abisai, I10 Essential Medicine - M.DKarolina (primary) [place] hypertension E87.1 Hypo-osmolality and hyponatremia E78.2 Mixed hyperlipidemia J44.9 Chronic obstructive pulmonary disease, unspecified I50.32 Chronic diastolic (congestive) heart failure G47.00 Insomnia, unspecified Z12.11 Encounter for screening for malignant neoplasm of colon G60.8 Other hereditary and idiopathic neuropathies F01.50 Vascular dementia without behavioral disturbance E11.9 Type 2 diabetes mellitus without complications Office Visit 04/06/2015 1:45p [facility] Anirudh Larios, G60.8 Other hereditary Services Of [facility] and idiopathic neuropathies F03.90 Unspecified dementia without behavioral disturbance E87.1 Hypo-osmolality and hyponatremia Office 03/11/2015 [facility] An[facility] E87.1 Hypo-osmolality and Visit 3:21p Clinic MD Harriet hyponatremia F03.90 Unspecified dementia without behavioral disturbance G60.8 Other hereditary and idiopathic neuropathies Office Visit 03/11/2015 [facility] Roberth E87.1 Hypo-osmolality and 1:46p Assoc,teddy Laguerre M.D. hyponatremia [facility] I10 Essential (primary) hypertension J18.9 Pneumonia, unspecified organism J44.9 Chronic obstructive pulmonary disease, unspecified Office Visit 03/10/2015 [facility] Hansel E87.1 Hypo-osmolality and 1:46p Assdipesh,teddy Fowler M.D. hyponatremia [facility] I10 Essential (primary) hypertension J18.9 Pneumonia, unspecified organism J44.9 Chronic obstructive pulmonary disease, unspecified Office 03/10/2015 [facility] Renuka E87.1 Hypo-osmolality and Visit 3:20p Clark Castro M.D. hyponatremia R41.82 Altered mental status, unspecified Office Visit 03/09/2015 3:13p [facility] Anirudh Larios, F03.90 Unspecified Services Of [facility] dementia without behavioral disturbance E87.1 Hypo-osmolality and hyponatremia G60.8 Other hereditary and idiopathic neuropathies Office Visit 03/09/2015 [facility] Teddy Donato E87.1 Hypo-osmolality and 1:45p Assoc,pc M.D. 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 at [facility]06/12/2018 10:30 am - Melida Hoff MD at [facility]01/13/2019 9:15 am - Anirudh Larios MD at [facility] Cgdcak9504/22/2018 - Alfa Barone M.D.I10 Essential (primary ) yzsreceqxpvsV17.9 Chronic obstructive pulmonary disease, cggemkpcaygH80.210 Nicotine dependence, cigarettes, uncomplicated
[2018-05-16 11:37] LABS: ABS Basophils 0.1 10^3/ul (0-0.2); ABS Eosinophils 0 10^3/ul (0-0.6); ABS Lymphocytes 0.3 10^3/ul (1.0-4.8); ABS Monocytes 0.9 10^3/ul (0-0.8); ABS Nucleated RBC 0 10^3/ul; Eosinophil % 0.1 %; Hematocrit 47 % (42-52); Hemoglobin 15.5 g/dl (14.0-18.0); Mean Corpuscular HGB Conc 33 g/dl (31-36); Mean Corpuscular Hemoglobin 31 pg (27-31); Mean Corpuscular Volume 95 fL (80-94); Mean Platelet Volume 8.2 fL (7.4-10.4); Nucleated Red Blood Cells % 0.1; Platelet Count 276 10^3/ul (150-450); Red Blood Count 4.97 10^6/ul (4.00-5.40); Red Cell Distribution Width 14 % (10.5-15); White Blood Count 15.3 10^3/ul (3.5-10.8)
[2018-05-16 11:42] LABS: INR 0.96 (0.77-1.02)
--- NOTE | 2018-05-16 11:45 | ED ---
Shortness of Breath - HPI Summary HPI Summary: This patient is a 72 year old man presenting to [facility] accompanied by family with a chief complaint of SOB since the past couple of days. Patient states that he simply doesnt feel well. He denies SOB at rest, and a productive cough , but states that he had a subjective fever this morning. The pain is rated 0/ 10 in severity. Symptoms aggravated by nothing. Symptoms alleviated by nothing. Patient admits to a previous hx of COPD. - History of Current Complaint Chief Complaint: EDShortnessOfBreath Time Seen by Provider: 05/16/18 10:51 Hx Obtained From: Patient Onset/Duration: Sudden Onset, Lasting Days, Still Present Current Severity: Mild Dyspnea At: Exertion Aggrevating Factors: Nothing Alleviating Factors: Nothing Associated Signs & Symptoms: Negative - productive cough, Fever - Allergy/Home Medications Allergies/Adverse Reactions: Allergies Allergy/AdvReac Type Severity Reaction Status Date / Time No Known Allergies Allergy Verified 05/16/18 10:57 Home Medications: Home Medications Budesonide/Formote 80/4.5(NF) [Symbicort 80/4.5 (NF)] 2 puff INH BEDTIME [History Confirmed 05/16/18] Memantine XR CAP* [Namenda XR CAP*] 28 mg PO DAILY 05/16/18 [History Confirmed 05/16/18] Sertraline* [Zoloft*] 50 mg PO DAILY 05/16/18 [History Confirmed 05/16/18] PMH/Surg Hx/FS Hx/Imm Hx Previously Healthy: No Endocrine/Hematology History: Denies: Hx Anticoagulant Therapy, Hx Blood Disorders, Hx Blood Transfusions, Hx Bone Marrow Disease, Hx Diabetes, Hx Systemic Lupus Erythematosus, Hx Sickle Cell Disease, Hx Thyroid Disease, Hx Anemia, Hx Unexplained Bleeding, Other Endocrine/Hematological Disorders Cardiovascular History: Reports: Hx Hypertension, Other Cardiovascular Problems/ Disorders Denies: Hx Pacemaker/ICD Respiratory History: Reports: Hx Chronic Obstructive Pulmonary Disease (COPD), Other Respiratory Problems/Disorders Denies: Hx Asthma, Hx Chronic Bronchitis, Hx Cystic Fibrosis, Hx Lung Cancer , Hx Pleural Effusion, Hx Pneumonia, Hx Pulmonary Edema, Hx Pulmonary Embolism, Hx Seasonal Allergies, Hx Sleep Apnea GI History: Denies: Hx Cirrhosis, Hx Crohn's Disease, Hx Diverticulosis, Hx Gall Bladder Disease, Hx Gastroesophageal Reflux Disease, Hx Gastrointestinal Bleed, Hx Hiatal Hernia, Hx Irritable Bowel, Hx Jaundice, Hx Obstructive Bowel, Hx Ileostomy, Hx Pyloric Stenosis, Hx Ulcer, Other GI Disorders History: Denies: Hx Acute Renal Failure, Hx Benign Prostatic Hyperplasia, Hx Chronic Renal Failure, Hx Dialysis, Hx Kidney Infection, Hx Kidney Stones, Hx Renal Disease, Other Problems/Disorders Musculoskeletal History: Reports: Hx Arthritis Denies: Hx Back Problems, Hx Bursitis, Hx Congenital Bone Abnormalities, Hx Fibromyalgia, Hx Gout, Hx Osteoporosis, Hx Scoliosis, Hx Tendonitis, Other Musculoskeletal History Sensory History: Reports: Hx Contacts or Glasses Denies: Hx Cataracts, Hx Eye Injury, Hx Eye Prosthesis, Hx Glaucoma, Hx Legally Blind, Hx Macular Degeneration, Hx Vision Problem, Hx Deafness, Hx Hearing Aid, Hx Hearing Problem, Other Sensory Impairments Opthamlomology History: Reports: Hx Contacts or Glasses Denies: Hx Cataracts, Hx Eye Injury, Hx Eye Prosthesis, Hx Glaucoma, Hx Legally Blind, Hx Macular Degeneration, Hx Vision Problem, Other Sensory Impairments Neurological History: Reports: Hx Dementia, Hx Migraine Denies: Hx Developmental Delay, Hx Headaches, Hx Nerve Disease, Hx Seizures, Hx Spinal Cord Injury, Hx Transient Ischemic Attacks (TIA), Other Neuro Impairments/Disorders Psychiatric History: Reports: Hx Depression Denies: Hx Anxiety, Hx Attention Deficit Hyperactivity Disorder, Hx Eating Disorder, Hx Panic Disorder, Hx Post Traumatic Stress Disorder, Hx Inpatient Treatment, Hx Community Mental Health Tx, Hx Schizophrenia, Hx Bipolar Disorder , Hx Suicide Attempt, Hx of Violent Episodes Against Others, Hx Substance Abuse , Other Psychiatric Issues/Disorders - Cancer History Hx Chemotherapy: No Hx Radiation Therapy: No Hx Palliative Cancer Treatment: No - Surgical History Surgery Procedure, Year, and Place: ESOPHAGEAL TUMOR REMOVED,APPY Hx Anesthesia Reactions: No Infectious Disease History: No Infectious Disease History: Denies: Hx Clostridium Difficile, Hx Hepatitis, Hx Human Immunodeficiency Virus (HIV), Hx of Known/Suspected MRSA, Hx Shingles, Hx Tuberculosis, Hx Known/ Suspected VRE, Hx Known/Suspected VRSA, History Other Infectious Disease, Traveled Outside the [place] in Last 30 Days - Family History Known Family History: Negative: Hypertension - Social History Lives: Alone Alcohol Use: None Hx Substance Use: No Substance Use Type: Reports: None Hx Tobacco Use: Yes Smoking Status (MU): Heavy Every Day Tobacco Smoker Type: Cigarettes Amount Used/How Often: pack a day Length of Time of Smoking/Using Tobacco: 36 years Have You Smoked in the Last Year: Yes Review of Systems Positive: Fever Positive: Shortness Of Breath. Negative: Cough All Other Systems Reviewed And Are Negative: Yes Physical Exam - Summary Physical Exam Summary: Appearance: Well appearing, mild distress Skin: warm, dry, reflects adequate perfusion, thoracotomy scar down left back, skin tears on forearm Head/face: normal Eyes: EOMI, [place] ENT: mucous membranes moist, no nasal discharge Neck: supple, non-tender Respiratory: diminisehd diffused crackles at base Cardiovascular: Tachycardic, but regular, pulses symmetrical Abdomen: non-tender, soft Bowel Sounds: present Musculoskeletal: normal, strength/ROM intact Neuro: sensory motor intact, A&Ox3, patient has mild dementia Triage Information Reviewed: Yes Vital Signs On Initial Exam: Initial Vitals Temp Pulse Resp BP Pulse Ox 97.8 F 132 22 109/72 88 05/16/18 10:38 05/16/18 10:38 05/16/18 10:38 05/16/18 10:38 05/16/18 10:38 Vital Signs Reviewed: Yes Diagnostics - Vital Signs Vital Signs Temp Pulse Resp BP Pulse Ox 05/16/18 10:47 118 21 121/86 90 05/16/18 10:46 10 05/16/18 10:38 97.8 F 132 22 109/72 88 - Laboratory Lab Results: Lab Results 05/16/18 Range/Units 11:05 WBC 15.3 H (3.5-10.8) 10^3/ul RBC 4.97 (4.00-5.40) 10^6/ul Hgb 15.5 (14.0-18.0) g/dl Hct 47 (42-52) % MCV 95 H (80-94) fL MCH 31 (27-31) pg MCHC 33 (31-36) g/dl RDW 14 (10.5-15) % Plt Count 276 (150-450) 10^3/ul MPV 8.2 (7.4-10.4) fL Neut % (Auto) 91.3 % Lymph % (Auto) 2.0 % [place]ferro % (Auto) 6.1 % Eos % (Auto) 0.1 % Baso % (Auto) 0.5 % Absolute Neuts (auto) 14.0 H (1.5-7.7) 10^3/ul Absolute Lymphs (auto) 0.3 L (1.0-4.8) 10^3/ul Absolute Monos (auto) 0.9 H (0-0.8) 10^3/ul Absolute Eos (auto) 0 (0-0.6) 10^3/ul Absolute Basos (auto) 0.1 (0-0.2) 10^3/ul Absolute Nucleated RBC 0 10^3/ul Nucleated RBC % 0.1 Result Diagrams: 05/16/18 11:05 05/16/18 11:05 Lab Statement: Any lab studies that have been ordered have been reviewed, and results considered in the medical decision making process. - Radiology CXR Radiology Interpretation Completed By: Radiologist Summary of Radiographic Findings: CXR reveals, per radiologist, IMPRESSION: 1. COPD..2. RIGHT LOWER LOBE CONSOLIDATION. RECOMMEND FOLLOW-UP UNTIL RESOLUTION TO EXCLUDE UNDERLYING PULMONARY PARENCHYMAL PATHOLOGY. 3. SMALL LEFT PLEURAL EFFUSION VERSUS CHRONIC PLEURAL THICKENING. ED physician has reviewed this radiology report. - EKG 1048 Cardiac Rate: Tachycardia EKG Rhythm: Sinus Tachycardia - 121 BPM Summary of EKG Findings: An EKG, taken 1048, reveals Sinus Tachycardia (121 BPM) , RBBB, PVCs, non-specific STs. Course/Dx - Course Course Of Treatment: Nurse's notes reviewed. 72-year-old man with history of COPD presents with fever, cough and hypoxia to 88%. X-ray shows rate lower lobe pneumonia. He is much improved after breathing treatments and oxygen. IV Levaquin was to be ordered however the patient refuses to be admitted. He is explained that he requires oxygen, will need antibiotics and frequent breathing treatments. He was explained that going home AGAINST MEDICAL ADVICE. Cause permanent disability or even . His and daughter both would like him to stay but he is refusing. Patient is alert, oriented and able to make these decisions. He was discharged AGAINST MEDICAL ADVICE with oral medications and inhaler. - Diagnoses Differential Diagnosis/HQI/PQRI: Positive: Asthma, Bronchitis, Pneumonia, Pulmonary Embolism, Pulmonary Edema, Other - Sepsis Provider Diagnoses: Pneumonia, Hypoxia, COPD (chronic obstructive pulmonary disease) Discharge - Sign-Out/Discharge Documenting (check all that apply): Patient Departure - Discharge Plan Condition: Fair Disposition: AGAINST MEDICAL ADVICE Prescriptions: Albuterol/Ipratropium RESP(NF) [Combivent Respimat(NF)] 2 puff IN Q6H PRN #1 mdi PRN Reason: Sob/Wheezing guaiFENesin [Mucinex] 600 mg PO BID #20 tab.er.12h Levofloxacin TAB* [Levaquin TAB*] 750 mg PO DAILY #6 tab predniSONE TAB* [Deltasone TAB*] 50 mg PO DAILY #4 tab Patient Education Materials: Bacterial Pneumonia (ED) Referrals: Alfa Barone MD [Primary Care Provider] - Additional Instructions: You must follow-up with your doctor on Friday. You may need home oxygen. You may need home nebulizer treatments. Tylenol as needed for fever. Drink plenty of fluids. Return immediately to the ER with difficulty breathing, high fevers , weakness, worse, new symptoms or other concerns as discussed. He will need further imaging of your chest to exclude underlying cancers behind the pneumonia. - Billing Disposition and Condition Condition: FAIR Disposition: Against Medical Advice - Attestation Statements Document Initiated by Aisha: Yes Documenting Scribe: Noam Dover Provider For Whom Aisha is Documenting (Include Credential): Ishmael High MD Scribe Attestation: Noam Garcia scribed for Ishmael High MD on 05/16/18 at 1508. Scribe Documentation Reviewed: Yes Provider Attestation: The documentation as recorded by the Noam martinez accurately reflects the service I personally performed and the decisions made by me, Ishmael High MD Status of Scribe Document: Viewed
[2018-05-16 11:52] LABS: EGFR Non-African American 122.6 (>60)
[2018-05-16 13:03] VITALS: BP 140/77
== END | disposition left against medical advice (07) ==
LOC: ED 10:31
DX: J18.9 Pneumonia, unspecified organism (principal); R09.02 Hypoxemia; J44.9 Chronic obstructive pulmonary disease, unspecified; F17.210 Nicotine dependence, cigarettes, uncomplicated; R06.02 Shortness of breath
CPT/HCPCS: 36415; 71046; 80053; 82803; 83605; 83880; 84484; 85025; 85610; 86140; 87040; 93005; 96361; 96374; 96375; 99284; A9270-GY; J2930

== ENCOUNTER 2018-12-14 17:55 | Inpatient (IN) | payer MEDICARE, MEDICAID ==
--- NOTE | 2018-12-14 18:05 | ED ---
Shortness of Breath - HPI Summary HPI Summary: This pt is a 73 y/o male, with hx of COPD, presenting to [facility] via EMS for SOB x2 days. Pt reports he has also been coughing but states "I do it every day." He describes a productive cough. Denies fever, chills, chest pain, nausea, vomiting, diarrhea, constipation. Per nurse, pt is saturating at 90% on room air. Pt currently denies SOB. PMHx includes asthma, COPD, HTN, dementia. Pt takes medications at home but he does not know the names of them or what he takes them for. Per EMS, pt took all his medications today. His medications include Namenda, Spiriva. He is a current every day smoker, 1/2 PPD. - History of Current Complaint Time Seen by Provider: 12/14/18 18:00 Hx Obtained From: Patient Onset/Duration: Lasting Days, Still Present Timing: Constant Current Severity: Moderate Dyspnea At: Rest Aggravating Factors: Nothing Alleviating Factors: Nothing Associated Signs & Symptoms: Cough (Productive) - Allergy/Home Medications Allergies/Adverse Reactions: Allergies Allergy/AdvReac Type Severity Reaction Status Date / Time No Known Allergies Allergy Verified 05/16/18 10:57 PMH/Surg Hx/FS Hx/Imm Hx Endocrine/Hematology History: Denies: Hx Anticoagulant Therapy, Hx Blood Disorders, Hx Blood Transfusions, Hx Bone Marrow Disease, Hx Diabetes, Hx Systemic Lupus Erythematosus, Hx Sickle Cell Disease, Hx Thyroid Disease, Hx Anemia, Hx Unexplained Bleeding, Other Endocrine/Hematological Disorders Cardiovascular History: Reports: Hx Hypertension, Other Cardiovascular Problems/ Disorders Denies: Hx Pacemaker/ICD Respiratory History: Reports: Hx Asthma, Hx Chronic Obstructive Pulmonary Disease (COPD) Denies: Hx Chronic Bronchitis, Hx Cystic Fibrosis, Hx Lung Cancer, Hx Pleural Effusion, Hx Pneumonia, Hx Pulmonary Edema, Hx Pulmonary Embolism, Hx Seasonal Allergies, Hx Sleep Apnea GI History: Denies: Hx Cirrhosis, Hx Crohn's Disease, Hx Diverticulosis, Hx Gall Bladder Disease, Hx Gastroesophageal Reflux Disease, Hx Gastrointestinal Bleed, Hx Hiatal Hernia, Hx Irritable Bowel, Hx Jaundice, Hx Obstructive Bowel, Hx Ileostomy, Hx Pyloric Stenosis, Hx Ulcer, Other GI Disorders History: Denies: Hx Acute Renal Failure, Hx Benign Prostatic Hyperplasia, Hx Chronic Renal Failure, Hx Dialysis, Hx Kidney Infection, Hx Kidney Stones, Hx Renal Disease, Other Problems/Disorders Musculoskeletal History: Reports: Hx Arthritis Denies: Hx Back Problems, Hx Bursitis, Hx Congenital Bone Abnormalities, Hx Fibromyalgia, Hx Gout, Hx Osteoporosis, Hx Scoliosis, Hx Tendonitis, Other Musculoskeletal History Sensory History: Reports: Hx Contacts or Glasses Denies: Hx Cataracts, Hx Eye Injury, Hx Eye Prosthesis, Hx Glaucoma, Hx Legally Blind, Hx Macular Degeneration, Hx Vision Problem, Hx Deafness, Hx Hearing Aid, Hx Hearing Problem, Other Sensory Impairments Opthamlomology History: Reports: Hx Contacts or Glasses Denies: Hx Cataracts, Hx Eye Injury, Hx Eye Prosthesis, Hx Glaucoma, Hx Legally Blind, Hx Macular Degeneration, Hx Vision Problem, Other Sensory Impairments Neurological History: Reports: Hx Dementia, Hx Migraine Denies: Hx Developmental Delay, Hx Headaches, Hx Nerve Disease, Hx Seizures, Hx Spinal Cord Injury, Hx Transient Ischemic Attacks (TIA), Other Neuro Impairments/Disorders Psychiatric History: Reports: Hx Depression Denies: Hx Anxiety, Hx Attention Deficit Hyperactivity Disorder, Hx Eating Disorder, Hx Panic Disorder, Hx Post Traumatic Stress Disorder, Hx Inpatient Treatment, Hx Community Mental Health Tx, Hx Schizophrenia, Hx Bipolar Disorder , Hx Suicide Attempt, Hx of Violent Episodes Against Others, Hx Substance Abuse , Other Psychiatric Issues/Disorders - Cancer History Hx Chemotherapy: No Hx Radiation Therapy: No Hx Palliative Cancer Treatment: No - Surgical History Surgery Procedure, Year, and Place: ESOPHAGEAL TUMOR REMOVED,APPY Hx Anesthesia Reactions: No Infectious Disease History: Denies: Hx Clostridium Difficile, Hx Hepatitis, Hx Human Immunodeficiency Virus (HIV), Hx of Known/Suspected MRSA, Hx Shingles, Hx Tuberculosis, Hx Known/ Suspected VRE, Hx Known/Suspected VRSA, History Other Infectious Disease, Traveled Outside the [place] in Last 30 Days - Family History Known Family History: Negative: Hypertension - Social History Alcohol Use: None Hx Substance Use: No Substance Use Type: Reports: None Hx Tobacco Use: Yes Smoking Status (MU): Heavy Every Day Tobacco Smoker Type: Cigarettes Amount Used/How Often: 1/2 pack a day Length of Time of Smoking/Using Tobacco: 36 years Have You Smoked in the Last Year: Yes Review of Systems Negative: Fever, Chills Negative: Chest Pain Positive: Shortness Of Breath, Cough Negative: Vomiting, Diarrhea, Nausea, Other - constipation All Other Systems Reviewed And Are Negative: Yes Physical Exam - Summary Physical Exam Summary: VITAL SIGNS: Reviewed. GENERAL: Patient is a well-developed and nourished male who is lying comfortable in the stretcher. Patient is not in any acute respiratory distress. HEAD AND FACE: No signs of trauma. No ecchymosis, hematomas or skull depressions. No sinus tenderness. EYES: PERRLA, EOMI x 2, No injected conjunctiva, no nystagmus. EARS: Hearing grossly intact. Ear canals and tympanic membranes are within normal limits. MOUTH: Oropharynx within normal limits. NECK: Supple, trachea is midline, no adenopathy, no JVD, no carotid bruit, no c- spine tenderness, neck with full ROM. CHEST: Symmetric, no tenderness at palpation LUNGS: A little decreased breath sounds bilaterally. CVS: Regular rate and rhythm, S1 and S2 present, no murmurs or gallops appreciated. ABDOMEN: Soft, non-tender. No signs of distention. No rebound, no guarding, and no masses palpated. Bowel sounds are normal. EXTREMITIES: FROM in all major joints, no edema, no cyanosis or clubbing. NEURO: Alert and oriented x 3. No acute neurological deficits. Speech is normal and follows commands. SKIN: Dry and warm Triage Information Reviewed: Yes Vital Signs On Initial Exam: Initial Vitals Temp Pulse Resp BP Pulse Ox 99.1 F 110 20 159/75 90 12/14/18 18:01 12/14/18 18:01 12/14/18 18:01 12/14/18 18:01 12/14/18 18:01 Vital Signs Reviewed: Yes Diagnostics - Laboratory Result Diagrams: 12/14/18 19:29 12/14/18 19:29 Lab Statement: Any lab studies that have been ordered have been reviewed, and results considered in the medical decision making process. - Radiology CXR Radiology Interpretation Completed By: ED Physician Summary of Radiographic Findings: CXR showed bilateral infiltrates in bases of the lungs, pending official report. - EKG 191 Cardiac Rate: NL - rate of 99 BPM EKG Rhythm: Sinus Rhythm EKG Comparison: No Significant Change - EKG done 05/16/18 Summary of EKG Findings: EKG showed sinus rhythm with rate of 99 BPM, RBBB, similar to EKG done 05/16/18 Course/Dx - Course Assessment/Plan: This pt is a 73 y/o male, with hx of COPD, presenting to [facility] via EMS for SOB x2 days. Pt reports he has also been coughing but states "I do it every day." He describes a productive cough. Denies fever, chills, chest pain , nausea, vomiting, diarrhea, constipation. Per nurse, pt is saturating at 90% on room air. Pt currently denies SOB. PMHx includes asthma, COPD, HTN, dementia. Pt takes medications at home but he does not know the names of them or what he takes them for. Per EMS, pt took all his medications today. His medications include Namenda, Spiriva. He is a current every day smoker, 1/2 PPD. Blood work without any significant abnormality except WBCs 18.1, sodium 132, glucose 135, calcium 8.4, total protein 6, and CRP is 31.4. In the ED course the patient was given Solu-Medrol and DuoNeb. Chest x-ray impression: Bilateral infiltrates in bases of the lungs. Patient was started with Rocephin and azithromycin. I discuss my physical exam and test results with Dr. Godwin from the hospitalist services and she agrees to admit patient to her services. Patient is hemodynamically stable alert and oriented x 3 - Diagnoses Provider Diagnoses: PNA (pneumonia) - Physician Notifications Discussed Care of Patient With: Dulce Godwin Time Discussed With Above Provider: 20:53 Instructed by Provider To: Other - Patient's case was discussed with Dr. Godwin , Dr. Godwin accepts for admission Discharge - Sign-Out/Discharge Documenting (check all that apply): Patient Departure - admit Patient Received Moderate/Deep Sedation with Procedure: No - Discharge Plan Condition: Stable Disposition: ADMITTED TO [facility] Referrals: Padma Clark MD [Primary Care Provider] - - Billing Disposition and Condition Condition: STABLE Disposition: Admitted to [facility] - Attestation Statements Document Initiated by Scribe: Yes Documenting Scribe: Dulce Horan Provider For Whom Aisha is Documenting (Include Credential): Rahul Humphries MD Scribe Attestation: Dulce Garcia, scribed for Rahul Humphries MD on 12/14/18 at 2121. Scribe Documentation Reviewed: Yes Provider Attestation: The documentation as recorded by the scribe, Dulce Horan accurately reflects the service I personally performed and the decisions made by me, Rahul Humphries MD Status of Scribe Document: Viewed
[2018-12-14] MEDS ORDERED: methylPREDNISolone 125 MG* 2 ML VIAL IV ONE (19:05)
[2018-12-14] MEDS ORDERED: Albuterol/Ipratropium NEB.SOL* Albuterol 2.5 MG/Ipratropium 0.5 MG 3 ML INH ONE (19:05)
[2018-12-14 19:42] LABS: ABS Basophils 0.1 10^3/ul (0-0.2); ABS Lymphocytes 0.9 10^3/ul (1.0-4.8); ABS Neutrophils 16.2 10^3/ul (1.5-7.7); Eosinophil % 0.1 %; Hematocrit 44 % (42-52); Hemoglobin 14.8 g/dL (14.0-18.0); Lymphocyte % 4.8 %; Mean Corpuscular HGB Conc 34 g/dL (31-36); Mean Corpuscular Hemoglobin 32 pg (27-31); Mean Corpuscular Volume 95 fL (80-94); Mean Platelet Volume 7.9 fL (7.4-10.4); Platelet Count 267 10^3/uL (150-450); Red Blood Count 4.63 10^6 /uL (4.18-5.48); Red Cell Distribution Width 14 % (10-15); White Blood Count 18.1 10^3/uL (3.5-10.8)
[2018-12-14 19:54] LABS: Albumin 3.4 g/dL (3.2-5.2); Albumin/Globulin Ratio 1.3 (1-3); BUN/Creatinine Ratio 12.1 (8-20); C Reactive Protein 31.42 mg/L (<8.01); Calcium 8.4 mg/dL (8.6-10.3); EGFR African American 142.8 (>60); Globulin 2.6 g/dL (2-4); Potassium 3.9 mmol/L (3.5-5.0); Total Bilirubin 0.4 mg/dL (0.2-1.0)
[2018-12-14 19:58] LABS: CKMB ng/mL 2.5 ng/mL (0.6-6.3)
[2018-12-14] MEDS ORDERED: Azithromycin 500 mg/250 ml NS 500 MG/250 ML BAG IVPB ONE (20:46)
[2018-12-14] MEDS ORDERED: cefTRIAXone(*) 1 GM in NS 0.9% 50 ML* 50 ML IVPB ONE (20:46)
[2018-12-14] MEDS ORDERED: NS 0.9% 1000 ML** 1,000 ML IV ONE (20:52)
[2018-12-14] MEDS ORDERED: Acetaminophen TAB* 325 MG PO PRN (21:52)
[2018-12-14] MEDS ORDERED: Albuterol/Ipratropium NEB.SOL* Albuterol 2.5 MG/Ipratropium 0.5 MG 3 ML INH PRN (21:52)
[2018-12-14] MEDS ORDERED: GuaiFENesin DM sugar free* 5 ML UDC PO PRN (21:59)
[2018-12-14] MEDS: Enoxaparin(*) 40 MG/0.4 ML SYR SUBCUT SCH (23:48)
[2018-12-14] MEDS: traZODone TAB* 100 MG PO SCH (23:48)
[2018-12-15] MEDS: Albuterol 2.5 MG/3 ML NEB.SOL* (0.083%) INH SCH ×3 (00:29→07:20)
--- NOTE | 2018-12-15 01:29 | HP ---
CC: Padma Clark MD * HISTORY AND PHYSICAL: DATE OF ADMISSION: 12/14/18 PRIMARY CARE PHYSICIAN: Padma Clark MD HEALTHCARE PROXY: His , Ramonita. CODE STATUS: DNR/DNI. CHIEF COMPLAINT: Three to four days of tiredness, progressive shortness of breath and confusion. HISTORY OF PRESENT ILLNESS: Mr. Hodge is a 73-year-old man with a history of COPD, dementia, heart failure, major depressive disorder, hypertension, osteoarthritis and BPH who is presenting with 3 to 4 days of progressive tiredness. His reports that he just kept saying "I don't feel well" without specifying. Patient denies progressive shortness of breath at this time , but notes that he has been having progressive shortness of breath and his exercise tolerance has decreased. He has a nonproductive cough at baseline that not recently worsened. On day of presentation, noted that patient became acutely confused and would say nonsensical things to her such as "when will she pick me up ?", which did not make sense in the context of their conversation. Also, on the day presentation, the had noted patient to have rigoring with sweats and when she felt his forehead, it felt warmer to her than normal, so they decided to present to the emergency room. Patient does deny paroxysmal nocturnal dyspnea, worsening lower extremity edema, chest pain, abdominal pain, nausea, vomiting, constipation, diarrhea, dysuria or focal weakness. checked patient's oxygen saturation at home on the day of presentation and she noted that his FiO2 was 84%, which is lower than his baseline. So, that is also why she brought him to the emergency room. In the emergency room, patient was noted to have bibasilar crackles with chest x - ray concerning for bilateral infiltrates. He was given Solu-Medrol, DuoNeb, ceftriaxone and azithromycin and admitted to Medicine for further care. REVIEW OF SYSTEMS: A complete 10-point review of systems was performed and pertinent positives and negatives as listed in the HPI. PAST MEDICAL HISTORY: 1. COPD, not on home oxygen but with active tobacco use. 2. Dementia. 3. Major depressive disorder. 4. Hypertension. 5. Osteoarthritis. 6. CHF, unknown ejection fraction, not on diuretics. 7. BPH. 8. History of obesity and diabetes mellitus, cared with weight loss. 9. Esophageal tumor, status post resection. 10. Appendectomy in 1997. 11. History of hyponatremia thought to be due to citalopram use. HOME MEDICATIONS: 1. Tiotropium 1 inhalation daily. 2. Symbicort 2 puffs daily. 3. Bupropion 300 mg daily. 4. Sertraline 50 mg daily. 5. Memantine 28 mg XR daily. 6. Hydrocodone/acetaminophen 1 tab nightly as needed for pain. 7. Gabapentin 300 mg twice a day. 8. Pravastatin 40 mg at bedtime. 9. Tamsulosin 0.4 mg at bedtime. 10. Verapamil 120 mg daily. 11. Trazodone 100 mg nightly. 12. Vitamin D3 2000 international units daily. ALLERGIES: No known drug allergies. 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 He lives with his Ramonita, who is his healthcare proxy and power of traffic law attorney. Patient smoked from the age of 13 to 15 approximately 1 pack per day, then he quit for 10 years. However, he has started smoking again at age 69, but he is tapering down. He is at currently at one half pack per day. He denies current alcohol use, but does have a history of alcohol use disorder. Denies other drug use. FAMILY HISTORY: One brother had diabetes, coronary artery disease, and bladder cancer. Two of his sisters have diabetes. One sister has hemochromatosis. PHYSICAL EXAMINATION GENERAL: He is a comfortable-appearing man in no acute distress, asking if he can go home. Able to speak in full sentences and no observed increased work of breathing. VITAL SIGNS: Temperature 99.1, heart rate 98, blood [id number]/66, respiratory rate 19, oxygen saturation 98% on 2 L. HEENT: Pupils equal, round, and reactive to light. Moist mucous membranes. NECK: Supple. No JVD. LUNGS: With bibasilar crackles. No wheeze appreciated. HEART: Regular rate and rhythm. No murmurs, gallops, or rubs. ABDOMEN: Soft, nontender, nondistended. Normoactive bowel sounds. EXTREMITIES: Warm, well perfused without evidence of edema. NEUROLOGIC: Knows he is in the hospital. Thinks it is December,, only one month off. No focal deficits. Speech fluent. SKIN: Warm and dry. DIAGNOSTIC STUDIES AND LAB DATA: Labs were reviewed and significant for: WBC 18.1 with 90% neutrophils. Sodium 132, near baseline. Creatinine 0.66. CRP 31. Troponin 0. BNP 46. Chest x-ray concerning for left lower lobe infiltrate. Possibly, very small pulmonary effusion. EKG in sinus rhythm with rate 99. Right bundle branch block. Possible Q-waves in 2 and aVF. This is unchanged from prior EKG last year. ASSESSMENT AND PLAN: Mr. Hodge is a 73-year-old man with chronic obstructive pulmonary disease and active tobacco use, dementia, major depressive disorder, osteoarthritis, congestive heart failure, hypertension and benign prostate hyperplasia, who is presenting with subacute tiredness, progressive shortness of breath, and acute confusion. He is found with tachycardia, bibasilar crackles on exam, leukocytosis with left shift and chest x-ray concerning for left lower lobe infiltrates. 1. Likely community-acquired pneumonia complicated by sepsis with tachycardia and leukocytosis. Blood cultures were not drawn in the emergency room before antibiotics, but we will order sputum cultures and urine antigens for Strep pneumoniae and legionella. We will continue patient on ceftriaxone and azithromycin. 2. Chronic obstructive pulmonary disease. We will continue patient's home triple therapy inhalers with Spiriva and Symbicort. Patient was given methylprednisolone IV in the emergency department. However, given that patient is denying shortness of breath and had no appreciable wheeze on exam, we will not continue treatment at this time for chronic obstructive pulmonary disease exacerbation. Of note, patient was placed on oxygen, but had O2 saturation of 98% when on 2 L. His goal FiO2 is 88% to 92%. So, we will titrate oxygen with that goal. 3. Heart failure. No echo on record here. Patient appears euvolemic on exam. He did have crackles at the bases. However, this could be from his possible lung infection. He does not take a diuretic at home. I do not think he is in an active heart failure exacerbation here given no jugular venous distension or lower extremity edema or symptoms of paroxysmal nocturnal dyspnea, but we will monitor closely and consider initiation of diuretics as needed. BNP on admission was 46. 4. Confusion. This has largely resolved likely in the setting of acute infection. We will hold patient's home opioids that he uses for osteoarthritis pain. 5. Active tobacco use. Patient is on bupropion and tapering down his cigarette use. Encouraged to continue with smoking cessation efforts. 6. Hypertension. Patient's blood pressures normal to elevated on admission. So, we will continue home verapamil. 7. Dementia. Continue home memantine, redirect frequently and prefer bed next to a window. 8. Depression. Continue home bupropion and sertraline. Continue home trazodone. 9. Benign prostate hyperplasia. Continue home tamsulosin. 10. DVT prophylaxis. Patient is at high risk. So, we will initiate on Lovenox subcu daily. 11. Diet. Patient can use a regular diet that is carb controlled given history of diabetes and steroid administration in the emergency room. TIME SPENT: Approximately 60 minutes was spent on admission of this patient, more than of half of which was spent at the bedside for interview and exam. [id number]/[facility] #: [id number] VANCE
[2018-12-15 07:02] LABS: BUN/Creatinine Ratio 17.3 (8-20); Calcium 8.3 mg/dL (8.6-10.3); EGFR Non-African American 155.4 (>60); Magnesium 1.9 mg/dL (1.9-2.7)
[2018-12-15] MEDS: Tiotropium CAP.INH* CAP.INH/18 MCG (USE ORDER SET !) INH SCH (07:21)
[2018-12-15] MEDS ORDERED: Albuterol 2.5 MG/3 ML NEB.SOL* (0.083%) INH PRN (07:25)
[2018-12-15] MEDS: Verapamil SR TAB* 240 MG PO SCH (08:56)
[2018-12-15] MEDS: Cholecalciferol TAB* 1000 UNITS PO SCH (08:56)
[2018-12-15] MEDS: Gabapentin CAP(*) 300 MG PO SCH ×2 (08:56→20:34)
[2018-12-15] MEDS: BuPROPion XL* 300 MG TAB.XL PO SCH (08:56)
[2018-12-15] MEDS: Azithromycin TAB* 250 MG PO SCH (08:57)
[2018-12-15] MEDS: Sertraline* 50 MG TAB PO SCH (08:57)
[2018-12-15] MEDS: Tamsulosin CAP* 0.4 MG PO SCH (08:57)
[2018-12-15] MEDS: Memantine XR CAP* 28 MG CAP.XR PO SCH (09:11)
[2018-12-15] MEDS ORDERED: Haloperidol TAB* 5 MG PO PRN (10:16)
[2018-12-15] MEDS ORDERED: Haloperidol INJ IV/IM* 5 MG/ML AMP IV SLOW PU PRN (15:17)
--- NOTE | 2018-12-15 15:24 | PN ---
Subjective Date of Service: 12/15/18 Interval History: Patient seen and examined. Has cough which he states he has "all the time". Also states he wants to leave. Explained multiple times to the patient that he has pneumonia and it would be best if he stays, however, given cognitive deficit , patient agrees for a few minutes then repeats the same issues again and states he wants to leave again and that he is going to at 4:00. Repeatedly states he can go to his 'doctor at home' and he feels 'fine'. He does not conceptualize having to be in the hospital for IV antibiotics after repeated attempts to explain. ROS is therefore somewhat unreliable, however, he denies acute SOB, no chest pain, no fevers or chills. Spoke with Ramonita that states his mood at home is labile and he has frequent episodes of agitation, refusing to eat and refusing medical care. Objective Active Medications: Acetaminophen (Tylenol Tab*) 975 mg PO Q8H PRN PRN Reason: FEVER/PAIN Albuterol (Ventolin 2.5 Mg/3 Ml Neb.Ella*) 2.5 mg INH [id number] AWAKE PRN PRN Reason: SOB/WHEEZING Stop: 12/15/18 22:59 Albuterol/Ipratropium (Duoneb (Albuterol 2.5 Mg/Ipratropium 0.5 Mg)) 1 neb INH [id number] AWAKE PRN PRN Reason: sob/wheexing Atorvastatin Calcium (Lipitor*) 10 mg PO BEDTIME [facility] Azithromycin (Zithromax Tab*) 250 mg PO DAILY [facility] Stop: 12/18/18 09:01 Last Admin: 12/15/18 08:57 Dose: 250 mg Bupropion HCl (Bupropion Xl*) 300 mg PO DAILY [facility] Last Admin: 12/15/18 08:56 Dose: 300 mg Cholecalciferol (Vitamin D Tab*) 2,000 units PO DAILY [facility] Last Admin: 12/15/18 08:56 Dose: 2,000 units Enoxaparin Sodium (Lovenox(*)) 40 mg SUBCUT Q24H [facility] Last Admin: 12/14/18 23:48 Dose: 40 mg Gabapentin (Neurontin Cap(*)) 300 mg PO BID [facility] Last Admin: 12/15/18 08:56 Dose: 300 mg Guaifenesin/Dextromethorphan (Robitussin Dm Sugar Free*) 10 ml PO Q6H PRN PRN Reason: COUGH Haloperidol (Haldol Tab*) 5 mg PO Q6H PRN PRN Reason: anxiety or agitation Last Admin: 12/15/18 14:00 Dose: 5 mg Haloperidol Lactate (Haldol Inj Iv/Im*) 5 mg IV SLOW PU Q6H PRN PRN Reason: AGITATION Ceftriaxone Sodium 1 gm/ (Sodium Chloride) 50 mls @ 100 mls/hr IVPB Q24H [facility] Memantine (Namenda Xr Cap*) 28 mg PO DAILY [facility] Last Admin: 12/15/18 09:11 Dose: 28 mg Mometasone Furoate/Formoterol Fumar (Dulera 100/5 Mdi*) 2 puff INH BID [facility] Sertraline HCl (Zoloft*) 50 mg PO DAILY [facility] Last Admin: 12/15/18 08:57 Dose: 50 mg Tamsulosin HCl (Flomax Cap*) 0.4 mg PO DAILY [facility] Last Admin: 12/15/18 08:57 Dose: 0.4 mg Tiotropium [place] (Spiriva Cap.Inh*) 1 cap INH DAILY [facility] Last Admin: 12/15/18 07:21 Dose: 1 cap Trazodone HCl (Desyrel Tab*) 100 mg PO BEDTIME [facility] Last Admin: 12/14/18 23:48 Dose: 100 mg Verapamil HCl (Calan Sr Tab*) 120 mg PO DAILY [facility] Last Admin: 12/15/18 08:56 Dose: 120 mg Vital Signs - 8 hr 12/15/18 12/15/18 12/15/18 07:23 07:40 08:00 Temperature 98.3 F Pulse Rate 76 87 Respiratory 14 16 18 Rate Blood Pressure 130/65 (mmHg) O2 Sat by Pulse 96 97 Oximetry 12/15/18 12/15/18 12/15/18 08:56 11:00 12:19 Temperature 97.9 F Pulse Rate 87 Respiratory 20 18 16 Rate Blood Pressure 147/66 (mmHg) O2 Sat by Pulse 97 Oximetry Oxygen Devices in Use Now: None Appearance: alert, somewhat disgruntled Eyes: No Scleral Icterus, PERRLA Ears/Nose/Mouth/Throat: Mucous Membranes Moist Neck: NL Appearance and Movements; NL JVP, Trachea Midline Respiratory: Symmetrical Chest Expansion and Respiratory Effort, - - scattered rhonchi with bilateral crackles Abdominal: NL Sounds; No Tenderness; No Distention, No Hepatosplenomegaly Extremities: No Edema, No Clubbing, Cyanosis Skin: No Rash or Ulcers Neurological: - - alert to person and place, not to time or circumstance Nutrition: Taking PO's Result Diagrams: 12/14/18 19:29 12/15/18 06:17 Microbiology and Other Data: Microbiology 12/15/18 09:00 Gram Stain - Final Sputum Diagnostic Imaging: Patient Name: TRES EMERSON Medical Record#: [id number] Ordering Physician: Rahul Humphries MD Acct.#: [id number] : 1945 Age: 73 Sex: M Location: [address] [place] [address] - MEDICAL Exam Date: 12/14/181903 ADM Status: ADM IN Order Information: CHEST PA & LAT 2 VWS Accession Number: [id number] CPT: 91954 INDICATION: Shortness of breath COMPARISON: May 16, 2018 chest radiograph TECHNIQUE: Dual-energy PA and lateral views of the chest were obtained. FINDINGS: Overlying sport devices obscure the [id number]. New left lower lobe airspace opacification. The right lower lobe airspace opacification is partially resolved from May 16, 2018. There is no large pleural effusion. The cardiomediastinal silhouette is unchanged. The osseous structures and upper abdominal contents are grossly unremarkable. IMPRESSION: New left lower lobe airspace opacification and partially resolved right lower lobe airspace opacification. Assess/Plan/Problems-Billing Assessment: This is a 73 year old with history of COPD, CHF, HTN, tobacco abuse and dementia that presented to the hospital with his with malaise and subjective desaturations at home, found to have new left sided PNA. - Patient Problems (1) Pneumonia Code(s): J18.9 - PNEUMONIA, UNSPECIFIED ORGANISM SNOMED Code(s): 083975377 Comment: - LLL infiltrate, on ceftriaxone and azithro - crackles at bases and questionable hx of CHF, pending ECHO (2) HTN (hypertension) Code(s): I10 - ESSENTIAL (PRIMARY) HYPERTENSION SNOMED Code(s): 77864605 Comment: - Continue verapamil (3) Dementia Code(s): F03.90 - UNSPECIFIED DEMENTIA WITHOUT BEHAVIORAL DISTURBANCE SNOMED Code(s): 11546180 Comment: - Patient of Dr. Larios in the past, may likely be vascular-type dementia (4) COPD (chronic obstructive pulmonary disease) Code(s): J44.9 - CHRONIC OBSTRUCTIVE PULMONARY DISEASE, UNSPECIFIED SNOMED Code(s): 57503705 Comment: - Not in exacerbation, continue nebs in prsence of PNA (5) Tobacco abuse Code(s): Z72.0 - TOBACCO USE SNOMED Code(s): 365725404 Comment: - Nicotine replacement, cessation advised Status and Disposition: Inpatient, likely DC to home in 1-2 days.
--- NOTE | 2018-12-15 16:35 | ECHO ---
*[facility]* [place] [address] Fax #: [phone] Transthoracic Echocardiogram Patient: Octavio Hodge : 1945 Study Date: 12/15/2018 Age: 73 Gender: M HR: 85 bpm Height: 68 in /172.7 cm BSA: 1.95 m^2 Weight: 179.6 lb /81.6 kg BMI: 27.4 kg/m^2 *Workforce Analyst: * Tanesha Degroot [facility] *Referring Physician: * Dulce Godwin *Reading Physician: * Steffen Diaz MD Indications: Congestive Heart Failure. History: Congestive heart failure. Chronic obstructive pulmonary disease. Risk factors: Current tobacco use. Hypertension. Diabetes mellitus. Conclusions Summary: 1. Left ventricle: The cavity size is normal. There is mild concentric hypertrophy. Systolic function is normal by visual assessment. The estimated ejection fraction is 55-60%. Wall motion is normal; there are no regional wall motion abnormalities. Doppler parameters are consistent with abnormal left ventricular relaxation (grade 1 diastolic dysfunction). 2. Left atrium: The atrium is severely dilated. 3. Mitral valve: The findings are consistent with mild stenosis. 4. There is no prior echocardiogram available to compare with at this time. Study data: Transthoracic echocardiogram. Procedure: Transthoracic echocardiography was performed. Image quality was fair. The study was technically limited due to poor acoustic window availability. Complete 2D, spectral Doppler, and color flow Doppler. Location: Bedside. Patient status: Inpatient. Patient room number: 416-1. Rhythm: Normal sinus rhythm with PVC's. Findings Left ventricle: The cavity size is normal. There is mild concentric hypertrophy. Systolic function is normal by visual assessment. The estimated ejection fraction is 55-60%. Wall motion is normal; there are no regional wall motion abnormalities. Doppler parameters are consistent with abnormal left ventricular relaxation (grade 1 diastolic dysfunction). Right ventricle: The cavity size is normal. Wall thickness is mildly increased. The moderator band is in a normal position. Systolic function is normal. Left atrium: The atrium is severely dilated. Right atrium: The atrium is slightly dilated. Mitral valve: The annulus is mildly calcified. The leaflets are mildly thickened. The findings are consistent with mild stenosis. There is trivial regurgitation. Aortic valve: The valve is probably trileaflet. The leaflets are mildly thickened. There is no evidence of stenosis. There is trivial regurgitation. Tricuspid valve: The leaflets are normal thickness. There is trivial regurgitation. Pulmonic valve: The leaflets are normal thickness. There is no evidence of stenosis. There is no regurgitation. Aorta: Aortic root: The aortic root is appears normal. Ascending aorta: The ascending aorta is mildly dilated. Aortic arch: The aortic arch is appears normal. Pericardium: A prominent pericardial fat pad is present. There is no significant pericardial effusion. Pulmonary arteries: Not visualized. Systolic pressure is within the normal range, estimated to be 25 mm Hg. Systemic veins: Inferior vena cava: The vessel is normal in size. The respirophasic diameter changes are in the normal range (>= 50%). Measurements Left ventricle Value Ref Aortic valve Value Ref HARINDER, LAX 4.2 cm 4.2 - 5.8 Nile diam, ED 2.2 cm ----- ESD, LAX 3.0 cm 2.5 - 4.0 Peak v, S 2 m/sec ----- FS, LAX 27 % 25 - 43 VTI, S 36.7 cm ----- PW, ED, LAX (H) 1.1 cm 0.6 - 1.0 Mean grad, S 6.0 mm Hg ----- FS 27 % 25 - 43 Peak grad, S 16.0 mm Hg ----- PW, ED (H) 1.1 cm 0.6 - 1.0 LVOT/AV, VTI ratio 0.68 ----- E', lat nile, TDI (L) 8.7 cm/sec >=10.0 LILIANA, VTI 2.14 cm^2 --- -- E/e', lat nile, 13 LILIANA, Vmax 1.53 cm^2 ----- TDI E', med nile, TDI 8.5 cm/sec >=7.0 Mitral valve Value Ref E/e', med nile, 13 Peak E 1.09 m/sec ----- TDI Peak A 1.41 m/sec ----- E', avg, TDI 8.6 cm/sec Decel time 380 ms ----- E/e', avg, TDI 13 <=14 PHT 118 ms --- -- Mean grad, D 4.0 mm Hg ----- LVOT Value Ref Peak grad, D 9.0 mm Hg ----- Diam, S 2.00 cm Peak E/A ratio 0.8 ----- Area 3.1 cm^2 MVA, PHT 1.9 cm^2 ----- Peak sunny, S 0.98 m/sec VTI, S 25.0 cm Pulmonic valve Value Ref Mean grad, S 2 mm Hg Peak v, S 0.96 m/sec ----- SV 78 ml Peak grad, S 4.0 mm Hg ----- SV/bsa 40 ml/m^2 Tricuspid valve Value Ref Ventricular septum Value Ref TR peak v 2.6 m/sec <=2.8 IVS, ED (H) 1.2 cm 0.6 - 1.0 Peak RV-RA grad, S 27 mm Hg ----- Right ventricle Value Ref Aortic root Value Ref AW thickness, ED (H) 1.0 cm 0.1 - 0.5 Root diam 3.4 cm <4.1 HARINDER, LAX 3.5 cm Pressure, S 25 mm Hg Ascending aorta Value Ref AAo AP diam, S 3.5 cm ----- Left atrium Value Ref AP dim, ES 3.80 cm 3.00 - Pulmonary artery Value Ref 4.00 Pressure, S 25.0 mm Hg ----- ML dim, A4C 4.7 cm SI dim, A4C 5.3 cm Inferior vena cava Value Ref Vol/bsa, ES, 1-p (H) 41 ml/m^2 12 - 37 Diam 1.3 cm ----- A4C Vol/bsa, ES, A/L (H) 53 ml/m^2 16 - 34 Right atrium Value Ref SI dim, ES 4.8 cm 3.4 - 5.3 ML dim, ES, A4C (H) 4.5 cm 2.6 - 4.4 SI dim, ES, A4C 4.8 cm 3.4 - 5.3 SI dim/bsa, ES, 2.5 cm/m^2 1.8 - 3.0 A4C Estimated RAP 3 mm Hg Legend: (L) and (H) marychuy values outside specified reference range. Prepared and electronically signed by Steffen Diaz MD 12/15/2018 16:34
[2018-12-15] MEDS: Mometasone/Formoter 100/5 MDI INH SCH (19:39)
[2018-12-15] MEDS: traZODone TAB* 100 MG PO SCH (20:35)
[2018-12-15] MEDS: cefTRIAXone(*) 1 GM in NS 0.9% 50 ML* 50 ML IVPB SCH (20:35)
[2018-12-15] MEDS: Atorvastatin* 10 MG TAB PO SCH (20:35)
[2018-12-15] MEDS: Enoxaparin(*) 40 MG/0.4 ML SYR SUBCUT SCH (20:42)
[2018-12-16] MEDS: Tiotropium CAP.INH* CAP.INH/18 MCG (USE ORDER SET !) INH SCH (07:44)
[2018-12-16] MEDS: Mometasone/Formoter 100/5 MDI INH SCH ×2 (07:44→19:16)
[2018-12-16] MEDS: Sertraline* 50 MG TAB PO SCH (08:05)
[2018-12-16] MEDS: Tamsulosin CAP* 0.4 MG PO SCH (08:05)
[2018-12-16] MEDS: Cholecalciferol TAB* 1000 UNITS PO SCH (08:05)
[2018-12-16] MEDS: Verapamil SR TAB* 240 MG PO SCH (08:05)
[2018-12-16] MEDS: Azithromycin TAB* 250 MG PO SCH (08:07)
[2018-12-16] MEDS: BuPROPion XL* 300 MG TAB.XL PO SCH (08:07)
[2018-12-16] MEDS: Memantine XR CAP* 28 MG CAP.XR PO SCH (08:07)
[2018-12-16] MEDS: Gabapentin CAP(*) 300 MG PO SCH ×2 (08:07→20:12)
[2018-12-16 11:10] LABS: ABS Lymphocytes 0.9 10^3/ul (1.0-4.8); ABS Monocytes 0.9 10^3/ul (0-0.8); ABS Neutrophils 10.7 10^3/ul (1.5-7.7); Eosinophil % 0.3 %; Hematocrit 42 % (42-52); Hemoglobin 13.9 g/dL (14.0-18.0); Lymphocyte % 6.8 %; Mean Corpuscular HGB Conc 33 g/dL (31-36); Mean Corpuscular Hemoglobin 32 pg (27-31); Mean Corpuscular Volume 95 fL (80-94); Nucleated Red Blood Cells % 0.1; Platelet Count 236 10^3/uL (150-450); Red Blood Count 4.42 10^6 /uL (4.18-5.48); Red Cell Distribution Width 14 % (10-15); White Blood Count 12.5 10^3/uL (3.5-10.8)
[2018-12-16 11:12] LABS: Calcium 8.2 mg/dL (8.6-10.3); Potassium 3.9 mmol/L (3.5-5.0)
[2018-12-16 11:18] LABS: BUN/Creatinine Ratio 15.2 (8-20); EGFR African American 216.5 (>60)
--- NOTE | 2018-12-16 18:13 | PN ---
Subjective Date of Service: 12/16/18 Interval History: Patient seen and examined. Appears more engaged with care today and less confrontational. Denies SOB, has loose cough, no fevers or chills. Per record, no further behavioral issues since yesterday. Objective Active Medications: Acetaminophen (Tylenol Tab*) 975 mg PO Q8H PRN PRN Reason: FEVER/PAIN Albuterol/Ipratropium (Duoneb (Albuterol 2.5 Mg/Ipratropium 0.5 Mg)) 1 neb INH [id number] AWAKE PRN PRN Reason: sob/wheexing Atorvastatin Calcium (Lipitor*) 10 mg PO BEDTIME [facility] Last Admin: 12/15/18 20:35 Dose: 10 mg Azithromycin (Zithromax Tab*) 250 mg PO DAILY [facility] Stop: 12/18/18 09:01 Last Admin: 12/16/18 08:07 Dose: 250 mg Bupropion HCl (Bupropion Xl*) 300 mg PO DAILY [facility] Last Admin: 12/16/18 08:07 Dose: 300 mg Cholecalciferol (Vitamin D Tab*) 2,000 units PO DAILY [facility] Last Admin: 12/16/18 08:05 Dose: 2,000 units Enoxaparin Sodium (Lovenox(*)) 40 mg SUBCUT Q24H [facility] Last Admin: 12/15/18 20:42 Dose: Not Given Gabapentin (Neurontin Cap(*)) 300 mg PO BID [facility] Last Admin: 12/16/18 08:07 Dose: 300 mg Guaifenesin/Dextromethorphan (Robitussin Dm Sugar Free*) 10 ml PO Q6H PRN PRN Reason: COUGH Haloperidol (Haldol Tab*) 5 mg PO Q6H PRN PRN Reason: anxiety or agitation Last Admin: 12/15/18 14:00 Dose: 5 mg Haloperidol Lactate (Haldol Inj Iv/Im*) 5 mg IV SLOW PU Q6H PRN PRN Reason: AGITATION Ceftriaxone Sodium 1 gm/ (Sodium Chloride) 50 mls @ 100 mls/hr IVPB Q24H [facility] Last Admin: 12/15/18 20:35 Dose: 100 mls/hr Memantine (Namenda Xr Cap*) 28 mg PO DAILY [facility] Last Admin: 12/16/18 08:07 Dose: 28 mg Mometasone Furoate/Formoterol Fumar (Dulera 100/5 Mdi*) 2 puff INH BID [facility] Last Admin: 12/16/18 07:44 Dose: 2 puff Sertraline HCl (Zoloft*) 50 mg PO DAILY [facility] Last Admin: 12/16/18 08:05 Dose: 50 mg Tamsulosin HCl (Flomax Cap*) 0.4 mg PO DAILY [facility] Last Admin: 12/16/18 08:05 Dose: 0.4 mg Tiotropium [place] (Spiriva Cap.Inh*) 1 cap INH DAILY [facility] Last Admin: 12/16/18 07:44 Dose: 1 cap Trazodone HCl (Desyrel Tab*) 100 mg PO BEDTIME [facility] Last Admin: 12/15/18 20:35 Dose: 100 mg Verapamil HCl (Calan Sr Tab*) 120 mg PO DAILY [facility] Last Admin: 12/16/18 08:05 Dose: 120 mg Vital Signs - 8 hr 12/16/18 12/16/18 12/16/18 10:10 11:03 15:17 Temperature 97.6 F Pulse Rate 89 91 Respiratory 18 18 18 Rate Blood Pressure 135/72 145/75 (mmHg) O2 Sat by Pulse 93 94 Oximetry Oxygen Devices in Use Now: None Appearance: alert, confused, NAD Eyes: No Scleral Icterus, PERRLA Ears/Nose/Mouth/Throat: NL Teeth, Lips, Gums, Mucous Membranes Moist Neck: NL Appearance and Movements; NL JVP, Trachea Midline Respiratory: Symmetrical Chest Expansion and Respiratory Effort, - - course, diminished, scattered rhonchi Cardiovascular: NL Sounds; No Murmurs; No JVD, RRR, No Edema Abdominal: NL Sounds; No Tenderness; No Distention Extremities: No Edema, No Clubbing, Cyanosis Skin: No Rash or Ulcers Neurological: - - alert to person and place Nutrition: Taking PO's Result Diagrams: 12/16/18 10:42 12/16/18 10:42 Microbiology and Other Data: Microbiology 12/15/18 09:00 Gram Stain - Final Sputum Diagnostic Imaging: Patient Name: OCTAVIO EMERSON Medical Record#: [id number] Ordering Physician: Rahul Humphries MD Acct.#: [id number] : 1945 Age: 73 Sex: M Location: [address] [place] [address] - MEDICAL Exam Date: 12/14/18 190 ADM Status: ADM IN Order Information: CHEST PA & LAT 2 VWS Accession Number: [id number] CPT: 23676 INDICATION: Shortness of breath COMPARISON: May 16, 2018 chest radiograph TECHNIQUE: Dual-energy PA and lateral views of the chest were obtained. FINDINGS: Overlying sport devices obscure the [id number]. New left lower lobe airspace opacification. The right lower lobe airspace opacification is partially resolved from May 16, 2018. There is no large pleural effusion. The cardiomediastinal silhouette is unchanged. The osseous structures and upper abdominal contents are grossly unremarkable. IMPRESSION: New left lower lobe airspace opacification and partially resolved right lower lobe airspace opacification. *[facility]* [place] [address] Fax #: [phone] Transthoracic Echocardiogram Patient: Octavio Emerson : 1945 Study Date: 12/15/2018 Age: 73 Gender: M HR: 85 bpm Height: 68 in /172.7 cm BSA: 1.95 m^2 Weight: 179.6 lb /81.6 kg BMI: 27.4 kg/m^2 *Vacuum Furnace Operator: * Tanesha Degroot [facility] *Referring Physician: * Dulce Godwin *Reading Physician: * Steffen Diaz MD Indications: Congestive Heart Failure. History: Congestive heart failure. Chronic obstructive pulmonary disease. Risk factors: Current tobacco use. Hypertension. Diabetes mellitus. Conclusions Summary: 1. Left ventricle: The cavity size is normal. There is mild concentric hypertrophy. Systolic function is normal by visual assessment. The estimated ejection fraction is 55-60%. Wall motion is normal; there are no regional wall motion abnormalities. Doppler parameters are consistent with abnormal left ventricular relaxation (grade 1 diastolic dysfunction). 2. Left atrium: The atrium is severely dilated. 3. Mitral valve: The findings are consistent with mild stenosis. 4. There is no prior echocardiogram available to compare with at this time. Study data: Transthoracic echocardiogram. Procedure: This report is only to be considered final once signed by the Provider(s) as displayed in the "<Electronically Signed by >" field (s). Absence of a signature indicates the report is in a draft status and still needs to be finalized. In the event this document was created by someone other than the signing Provider, the individual initiating the document will be listed in the "Entered by:" or "Dictated by:" fontaine. Assess/Plan/Problems-Billing Assessment: This is a 73 year old with history of COPD, CHF, HTN, tobacco abuse and dementia that presented to the hospital with his with malaise and subjective desaturations at home, found to have new left sided PNA. - Patient Problems (1) Pneumonia Code(s): J18.9 - PNEUMONIA, UNSPECIFIED ORGANISM SNOMED Code(s): 935712343 Comment: - LLL infiltrate, on ceftriaxone and azithro - crackles at bases and questionable hx of CHF - ECHO as above, EF preserved, some diastolic dysfunction noted, no CHF exacerbation - No sepsis noted at admission, LA normal, mild tachycardia resolved and patient is on RN with normal BP (2) HTN (hypertension) Code(s): I10 - ESSENTIAL (PRIMARY) HYPERTENSION SNOMED Code(s): 97211667 Comment: - Continue verapamil (3) Dementia Code(s): F03.90 - UNSPECIFIED DEMENTIA WITHOUT BEHAVIORAL DISTURBANCE SNOMED Code(s): 98314689 Comment: - Patient of Dr. Larios in the past, may likely be vascular-type dementia - PRN haldol for behavioral disturbance, does appear to be more compliant today (4) COPD (chronic obstructive pulmonary disease) Code(s): J44.9 - CHRONIC OBSTRUCTIVE PULMONARY DISEASE, UNSPECIFIED SNOMED Code(s): 70059763 Comment: - Not in exacerbation, continue nebs in prsence of PNA (5) Tobacco abuse Code(s): Z72.0 - TOBACCO USE SNOMED Code(s): 924967987 Comment: - Nicotine replacement, cessation advised Status and Disposition: Inpatient, likely DC to home in 1-2 days.
[2018-12-16] MEDS: Enoxaparin(*) 40 MG/0.4 ML SYR SUBCUT SCH (20:12)
[2018-12-16] MEDS: traZODone TAB* 100 MG PO SCH (20:12)
[2018-12-16] MEDS: Atorvastatin* 10 MG TAB PO SCH (20:12)
[2018-12-16] MEDS: cefTRIAXone(*) 1 GM in NS 0.9% 50 ML* 50 ML IVPB SCH (20:13)
[2018-12-17] MEDS: Tiotropium CAP.INH* CAP.INH/18 MCG (USE ORDER SET !) INH SCH (07:28)
[2018-12-17] MEDS: Mometasone/Formoter 100/5 MDI INH SCH (07:28)
[2018-12-17] MEDS: Tamsulosin CAP* 0.4 MG PO SCH (10:18)
[2018-12-17] MEDS: Memantine XR CAP* 28 MG CAP.XR PO SCH (10:18)
[2018-12-17] MEDS: BuPROPion XL* 300 MG TAB.XL PO SCH (10:18)
[2018-12-17] MEDS: Cholecalciferol TAB* 1000 UNITS PO SCH (10:18)
[2018-12-17] MEDS: Verapamil SR TAB* 240 MG PO SCH (10:19)
[2018-12-17] MEDS: Sertraline* 50 MG TAB PO SCH (10:19)
[2018-12-17] MEDS: Azithromycin TAB* 250 MG PO SCH (10:20)
[2018-12-17] MEDS: Gabapentin CAP(*) 300 MG PO SCH (10:20)
[2018-12-17 17:41] VITALS: BP 129/65
--- NOTE | 2018-12-17 21:12 | DS ---
CC: Dr. Clark; Dr. Galeas, [facility]; Dr. Anirudh Larios, Neurology; Dr. Melida Hoff, Pulmonology * DISCHARGE SUMMARY: DATE OF ADMISSION: 12/14/18 DATE OF DISCHARGE: 12/17/18 PRIMARY CARE PROVIDER: Dr. Clark. MY ATTENDING FOR TODAY: Dr. Cornelius.* (DICTATED BY TAIWO COREA, STACEY ) HOSPITAL COURSE: Please refer to admitting H and P on 12/14/[address] Dulce Godwin, but in short, Mr. Hodge is a 73-year-old male patient with history of COPD, tobacco abuse, dementia, major depressive disorder, hypertension, and osteoarthritis, who presents with 4 days of progressive weakness and tiredness. He is confused at baseline; however, he is getting more confused and saying to his that he did not feel well. He was, however, due to his cognitive deficit, unable to state what his exact complaints were. The patient was repeating himself over and over again. His does have a home pulse oximetry device and when she checked his numbers, he appeared to be 84% on room air. She subsequently brought him to the emergency department for evaluation. In the ED, he was noted to have some crackles at the bases of his lungs. His chest x-ray appeared to have a left lower lobe infiltrate indicative of pneumonia. He did not have a desaturation per se. His sats were low normal, 88 % to 90%. He did seem to respond to 2 L nasal cannula; however, he was persistently encephalopathic. The patient was also noted to have some alteration in his lab values. He had an elevated white blood cell count of 18, slightly low sodium at 132. He did not, however, exhibit any findings consistent with heart failure. His BNP was 46 and again his chest x-ray did show left lower lobe infiltrate, but did not show interstitial edema. The patient was admitted for IV antibiotics for his left lower lobe infiltrate. The patient did become agitated at various times secondary to his cognitive deficit. He was given a dose of Haldol by mouth, to which he responded well. He responded also to verbal redirection and deescalation. He was continued on his home medications including nebulizers, inhalers. He did not require steroids. He did not have an overt wheeze. He did have a loose cough, however. Sputum culture did not yield any bacterial findings. Blood cultures were negative. He was not meeting sepsis criteria, although he was mildly tachycardic and febrile meeting SIRS criteria at admission, but not overt sepsis criteria. After approximately 48 hours of antibiotics, the patient did state he was feeling better. I did have a conversation with his on . His right lung did seem to have some diffuse crackles and rhonchi on today' s examination. His did state that he was supposed to have outpatient CAT scan. She thought there may have been some concern with Dr. Hoff for some either mass findings or some other acute findings on CAT scan either as an outpatient or that there was concern that the patient perhaps may have had some abnormalities, which would have prompted the need for CT scanning. Given that the patient does have a left lower lobe infiltrate and had a right lower lobe infiltrate back in May, we did do a CAT scan without contrast today on the outside chance that the patient would have either a mass or some other untoward finding. The CAT scan did not reveal any mass-like consolidations. It did show his underlying COPD. He has got a right paratracheal and pretracheal lymph node and some subcarinal nodes measuring up to 0.8 cm. There was no pericardial effusion. Major bronchi appear patent. Lung fontaine demonstrate peribronchial thickening in the left base with bronchiectasis. There may be scattered atelectasis and the infiltrate as noted, with right basilar atelectasis also found. There was no evidence of pleural effusion and no alveolar consolidation noted. The patient again remained stable throughout the course of his hospitalization. His white count trended down, his tachycardia resolved, his fevers returned to normal, and the patient was readied for discharge to home. Because the patient did have some crackles upon examination in the emergency department, we did obtain an echocardiogram, which showed his ejection fraction to be 55% to 60%, LV function was normal, left atrium did show severe dilatation, mitral valve had some mild stenosis, and there was some mild concentric hypertrophy. There were no prior echocardiograms to compare to. DISCHARGE DIAGNOSES: 1. Community-acquired pneumonia. 2. Chronic obstructive pulmonary disease with history of tobacco abuse. 3. Hypertension, stable. 4. Vascular dementia, stable. 5. Systemic inflammatory response syndrome criteria with leukocytosis and fever , resolved, secondary to community-acquired pneumonia. DISCHARGE MEDICATIONS: Include: 1. Trazodone 100 mg at bedtime. 2. Wellbutrin SR 300 mg p.o. daily. 3. Verapamil 120 mg p.o. daily. 4. Spiriva 1 cap inhaled daily. 5. Flomax 0.4 mg p.o. daily. 6. Zoloft 50 mg daily. 7. Pravachol 40 mg at bedtime. 8. Namenda XR 28 mg p.o. daily. 9. [place] 1 tab p.o. at bedtime as needed. 10. Gabapentin 300 mg p.o. b.i.d. 11. Cholecalciferol 2000 units p.o. daily. 12. Symbicort 80/4.5 two puffs inhaled at bedtime. New medications: 1. Cefuroxime 500 mg 1 tab p.o. b.i.d. x5 days. 2. Guaifenesin DM sugar-free 10 mL p.o. q.6 hours as needed. 3. Haloperidol 5 mg 1 tablet p.o. q.8 hours as needed. DISPOSITION: The patient was discharged to home in the care of his in stable condition. DISCHARGE DIET: Heart-healthy, consistent carb as tolerated. ACTIVITY: Progress activity as tolerated. FOLLOWUPS: The patient and his were instructed to follow up with Dr. Clark from [facility] Internal Medicine. The patient's also stated she may want to see other providers at [facility] as well. She was given referral for Dr. Terrell Galeas at [facility] if she is not able to get in to see Dr. Clark right away. Dr. Anirudh Larios of Neurology, who has seen the patient in the past, in the next 1 to 2 weeks for followup of his dementia symptoms and also for continued management of those symptoms medically. Dr. Melida Hoff in the next month to review CAT scan and any further diagnostics that she wishes to employ for this patient. TIME SPENT: 45 minutes on discharge planning. TAIWO COREA, SECURITY INSTALLATION SALES TECHNICIAN [id number]/[facility] #: [id number] [facility]
== END 2018-12-17 18:00 | disposition home or self-care (01) | DRG 194 ==
LOC: ED 17:55 → MED 21:52
PROVIDERS: ADMIT Internal Medicine; ATTEND Internal Medicine
DX: J18.9 Pneumonia, unspecified organism (principal); J44.0 Chronic obstructive pulmonary disease with (acute) lower respiratory infection; F03.91 Unspecified dementia, unspecified severity, with behavioral disturbance; J98.11 Atelectasis; Z66 Do not resuscitate; I11.0 Hypertensive heart disease with heart failure; F32.9 Major depressive disorder, single episode, unspecified; M19.90 Unspecified osteoarthritis, unspecified site; N40.0 Benign prostatic hyperplasia without lower urinary tract symptoms; E11.9 Type 2 diabetes mellitus without complications; I50.9 Heart failure, unspecified; F01.50 Vascular dementia, unspecified severity, without behavioral disturbance, psychotic disturbance, mood disturbance, and anxiety; F17.210 Nicotine dependence, cigarettes, uncomplicated; Z79.899 Other long term (current) drug therapy; Z83.3 Family history of diabetes mellitus; Z82.49 Family history of ischemic heart disease and other diseases of the circulatory system; Z80.52 Family history of malignant neoplasm of bladder
CPT/HCPCS: 36415; 71046; 71250; 80048; 80053; 82550; 82553; 83605; 83735; 83880; 84484; 85025; 85730; 86140; 87070; 87205; 87899; 93005; 93306; 94640; 99284; A9270-GY; G8978-GP-CI; G8979-GP-CI; G8980-GP-CI; J0456; J0696; J1650; J2930

== ENCOUNTER 2019-02-01 19:43 | Emergency (ER) | payer MEDICARE, MEDICAID ==
[2019-02-01 20:21] LABS: ABS Lymphocytes 0.9 10^3/ul (1.0-4.8); ABS Neutrophils 10.4 10^3/ul (1.5-7.7); Eosinophil % 0.2 %; Hematocrit 41 % (42-52); Hemoglobin 13.7 g/dL (14.0-18.0); Lymphocyte % 7.1 %; Mean Corpuscular HGB Conc 34 g/dL (31-36); Mean Corpuscular Hemoglobin 33 pg (27-31); Mean Corpuscular Volume 97 fL (80-94); Mean Platelet Volume 8.5 fL (7.4-10.4); Platelet Count 230 10^3/uL (150-450); Red Blood Count 4.21 10^6 /uL (4.18-5.48); Red Cell Distribution Width 15 % (10-15); White Blood Count 12.3 10^3/uL (3.5-10.8)
--- NOTE | 2019-02-01 20:35 | ED ---
Shortness of Breath - HPI Summary HPI Summary: This pt is a 73 y/o male w hx COPD CHF presenting to [facility] w cough. Pt states he has had a cough inc over 1.5 weeks Pt describes cough as productive with phlegm. Denies fever. Pt notes he uses inhalers (Symbicort, Spiriva, rescue inhaler) and nebulizers at home. He did not use his nebulizer today. Pt does not use oxygen at home. Pt had O2 saturation of 83% at home per . Pt was admitted in November 2018 for pneumonia. Pt states today he feels the same as in November. Pt is still a smoker, about 1 pack per 3 days. Per , pt tripped and fell on the carpet today and pt could not get up by himself. No head strike or LOC. notes pt had to get neighbor's help to get the pt back up. states pt was able to ambulate after helping him up. Pt c/ o back and buttock pain, although he notes his buttocks have been sore from sitting on his chair. - History of Current Complaint Chief Complaint: EDShortnessOfBreath Time Seen by Provider: 02/01/19 19:47 Hx Obtained From: Patient Onset/Duration: Lasting Days, Still Present Current Severity: Moderate Dyspnea At: Rest Aggravating Factors: Nothing Alleviating Factors: Nothing Associated Signs & Symptoms: Cough (Productive) - Allergy/Home Medications Allergies/Adverse Reactions: Allergies Allergy/AdvReac Type Severity Reaction Status Date / Time No Known Allergies Allergy Verified 05/16/18 10:57 PMH/Surg Hx/FS Hx/Imm Hx Endocrine/Hematology History: Denies: Hx Anticoagulant Therapy, Hx Blood Disorders, Hx Blood Transfusions, Hx Bone Marrow Disease, Hx Diabetes, Hx Systemic Lupus Erythematosus, Hx Sickle Cell Disease, Hx Thyroid Disease, Hx Anemia, Hx Unexplained Bleeding, Other Endocrine/Hematological Disorders Cardiovascular History: Reports: Hx Hypertension, Other Cardiovascular Problems/ Disorders Denies: Hx Pacemaker/ICD Respiratory History: Reports: Hx Asthma, Hx Chronic Obstructive Pulmonary Disease (COPD) Denies: Hx Chronic Bronchitis, Hx Cystic Fibrosis, Hx Lung Cancer, Hx Pleural Effusion, Hx Pneumonia, Hx Pulmonary Edema, Hx Pulmonary Embolism, Hx Seasonal Allergies, Hx Sleep Apnea GI History: Denies: Hx Cirrhosis, Hx Crohn's Disease, Hx Diverticulosis, Hx Gall Bladder Disease, Hx Gastroesophageal Reflux Disease, Hx Gastrointestinal Bleed, Hx Hiatal Hernia, Hx Irritable Bowel, Hx Jaundice, Hx Obstructive Bowel, Hx Ileostomy, Hx Pyloric Stenosis, Hx Ulcer, Other GI Disorders History: Denies: Hx Acute Renal Failure, Hx Benign Prostatic Hyperplasia, Hx Chronic Renal Failure, Hx Dialysis, Hx Kidney Infection, Hx Kidney Stones, Hx Renal Disease, Other Problems/Disorders Musculoskeletal History: Reports: Hx Arthritis Denies: Hx Back Problems, Hx Bursitis, Hx Congenital Bone Abnormalities, Hx Fibromyalgia, Hx Gout, Hx Osteoporosis, Hx Scoliosis, Hx Tendonitis, Other Musculoskeletal History Sensory History: Reports: Hx Contacts or Glasses Denies: Hx Cataracts, Hx Eye Injury, Hx Eye Prosthesis, Hx Glaucoma, Hx Legally Blind, Hx Macular Degeneration, Hx Vision Problem, Hx Deafness, Hx Hearing Aid, Hx Hearing Problem, Other Sensory Impairments Opthamlomology History: Reports: Hx Contacts or Glasses Denies: Hx Cataracts, Hx Eye Injury, Hx Eye Prosthesis, Hx Glaucoma, Hx Legally Blind, Hx Macular Degeneration, Hx Vision Problem, Other Sensory Impairments Neurological History: Reports: Hx Dementia, Hx Migraine Denies: Hx Developmental Delay, Hx Headaches, Hx Nerve Disease, Hx Seizures, Hx Spinal Cord Injury, Hx Transient Ischemic Attacks (TIA), Other Neuro Impairments/Disorders Psychiatric History: Reports: Hx Depression Denies: Hx Anxiety, Hx Attention Deficit Hyperactivity Disorder, Hx Eating Disorder, Hx Panic Disorder, Hx Post Traumatic Stress Disorder, Hx Inpatient Treatment, Hx Community Mental Health Tx, Hx Schizophrenia, Hx Bipolar Disorder , Hx Suicide Attempt, Hx of Violent Episodes Against Others, Hx Substance Abuse , Other Psychiatric Issues/Disorders - Cancer History Hx Chemotherapy: No Hx Radiation Therapy: No Hx Palliative Cancer Treatment: No - Surgical History Surgery Procedure, Year, and Place: ESOPHAGEAL TUMOR REMOVED,APPY Hx Anesthesia Reactions: No Infectious Disease History: No Infectious Disease History: Denies: Hx Clostridium Difficile, Hx Hepatitis, Hx Human Immunodeficiency Virus (HIV), Hx of Known/Suspected MRSA, Hx Shingles, Hx Tuberculosis, Hx Known/ Suspected VRE, Hx Known/Suspected VRSA, History Other Infectious Disease, Traveled Outside the [place] in Last 30 Days - Family History Known Family History: Negative: Hypertension - Social History Alcohol Use: None Hx Substance Use: No Substance Use Type: Reports: None Hx Tobacco Use: Yes Smoking Status (MU): Heavy Every Day Tobacco Smoker Type: Cigarettes Amount Used/How Often: 1/2 pack a day Length of Time of Smoking/Using Tobacco: 36 years Have You Smoked in the Last Year: Yes Review of Systems Negative: Fever, Chills Positive: Shortness Of Breath, Cough Musculoskeletal: Other - POSITIVE: back pain and buttocks pain All Other Systems Reviewed And Are Negative: Yes Physical Exam - Summary Physical Exam Summary: Constitutional: Well-nourished, Alert, Chronically ill-appearing. (-) Distressed Skin: Warm, Dry. Ecchymosis to the paraspinal thoracic spine. Stage 1 pressure ulcer to his sacrum. HENT: Normocephalic; Atraumatic Eyes: Conjunctiva normal Neck: Musculoskeletal ROM normal neck. (-) JVD, (-) Stridor. No cspine TTP Cardio: Rhythm regular, rate normal, Heart sounds normal; Intact distal pulses; Radial pulses are 2+ and symmetric. (-) Murmur Pulmonary/Chest wall: Bilateral rhonchi in the lower lobes. EWOB on RA (93 %) Abd: Soft, (-) tenderness, (-) Distension, (-) Guarding, (-) Rebound Musculoskeletal: No midline tenderness TL spine. Lymph: (-) Cervical adenopathy Neuro: Alert, Oriented x3 Psych: Mood and affect Normal Triage Information Reviewed: Yes Vital Signs On Initial Exam: Initial Vitals Temp Pulse Resp BP Pulse Ox 99 F 101 18 111/67 88 02/01/19 19:47 02/01/19 19:47 02/01/19 19:47 02/01/19 19:47 02/01/19 19:47 Vital Signs Reviewed: Yes Diagnostics - Vital Signs Vital Signs Temp Pulse Resp BP Pulse Ox 02/01/19 20:00 86 20 93 02/01/19 19:49 105 111/67 88 02/01/19 19:47 99 F 101 18 111/67 88 - Laboratory Lab Results: Lab Results 02/01/19 Range/Units 20:10 WBC 12.3 H (3.5-10.8) 10^3/uL RBC 4.21 (4.18-5.48) 10^6 /uL Hgb 13.7 L (14.0-18.0) g/dL Hct 41 L (42-52) % MCV 97 H (80-94) fL MCH 33 H (27-31) pg MCHC 34 (31-36) g/dL RDW 15 (10-15) % Plt Count 230 (150-450) 10^3/uL MPV 8.5 (7.4-10.4) fL Neut % (Auto) 84.6 % Lymph % (Auto) 7.1 % Cecil % (Auto) 7.8 % Eos % (Auto) 0.2 % Baso % (Auto) 0.3 % Absolute Neuts (auto) 10.4 H (1.5-7.7) 10^3/ul Absolute Lymphs (auto) 0.9 L (1.0-4.8) 10^3/ul Absolute Monos (auto) 1.0 H (0-0.8) 10^3/ul Absolute Eos (auto) 0.0 (0-0.6) 10^3/ul Absolute Basos (auto) 0.0 (0-0.2) 10^3/ul Absolute Nucleated RBC 0.0 10^3/ul Nucleated RBC % 0.0 Result Diagrams: 02/01/19 20:10 02/01/19 20:10 Lab Statement: Any lab studies that have been ordered have been reviewed, and results considered in the medical decision making process. - Radiology Chest XR Radiology Interpretation Completed By: ED Physician Summary of Radiographic Findings: Improvement of the left lower lobe capacity. - EKG 20:30 Cardiac Rate: NL - at 94 bpm EKG Rhythm: Sinus Rhythm Summary of EKG Findings: RBBB. No change from prior. Re-Evaluation - Re-Evaluation First Eval Re-Evaluation Time: 21:38 Change: Improved - Patient ambulated in the department w O2 93%. Got neb, feels better. D/w if radiologist notes a PNA they will call him. D/w daughter they can call PCP to get home O2 (does not currently qualify) and home health. Advised to take pressure of his sacrum to prevent worsening of pressure ulcer. Course/Dx - Course Course Of Treatment: 73 y/o male w hx COPD p/w SOB. - PE w rhonchi lower lobes , minimal wheezing. - likely c/w COPD. Only minimal inc in cough and chronic smoker. Will hold on abx and steroids. Labs w leukocytosis to 12 which is dec from prior of 18 when he had PNA. CXR appears improved compared to November. Afebrile. BNP normal, do not suspect CHF. Will give neb here but patient denies SOB. He has no complaints at this time and would like to go home. Will ambulate in department and likely dc to home. - Diagnoses Provider Diagnoses: COPD (chronic obstructive pulmonary disease) Discharge ED - Sign-Out/Discharge Documenting (check all that apply): Patient Departure - Discharge home Patient Received Moderate/Deep Sedation with Procedure: No - Discharge Plan Condition: Stable Disposition: HOME Patient Education Materials: COPD (Chronic Obstructive Pulmonary Disease) (ED) , Pressure Injury (ED) Referrals: Padma Clark MD [Primary Care Provider] - Additional Instructions: You were seen in the emergency department for cough. Your white count, the number for infection was lower than your previous admission. We gave you a nebulizer treatment. Please follow up with her primary care doctor regarding oxygen at home. Please call them also for home health. If any studies were not completed at the time of discharge you will be called with the relevant results. Please follow up with your primary care doctor in next 2-3 days and return to emergency department for worsening or concerning symptoms. - Billing Disposition and Condition Condition: STABLE Disposition: Home - Attestation Statements Document Initiated by Aisha: Yes Documenting Scribe: Dulce Putnam Provider For Whom Aisha is Documenting (Include Credential): Melissa Matute MD Scribe Attestation: Dulce Garcia, scribed for Melissa Matute MD on 02/01/19 at 2343. Scribe Documentation Reviewed: Yes Provider Attestation: The documentation as recorded by the Dulce martinez accurately reflects the service I personally performed and the decisions made by , Melissa Matute MD Status of Scribmazin Document: Viewed
[2019-02-01 20:36] LABS: Albumin 3.3 g/dL (3.2-5.2); Albumin/Globulin Ratio 1.4 (1-3); Calcium 8.6 mg/dL (8.6-10.3); EGFR African American 159.4 (>60); EGFR Non-African American 131.7 (>60); Globulin 2.3 g/dL (2-4); Potassium 3.6 mmol/L (3.5-5.0); Total Bilirubin 0.6 mg/dL (0.2-1.0); Total Protein 5.6 g/dL (6.4-8.9)
[2019-02-01 20:39] LABS: Troponin I 0.01 ng/mL (<0.04)
[2019-02-01] MEDS ORDERED: Albuterol/Ipratropium NEB.SOL* Albuterol 2.5 MG/Ipratropium 0.5 MG 3 ML INH ONE (20:47)
[2019-02-01 21:26] VITALS: BP 103/75
== END 2019-02-01 21:55 | disposition home or self-care (01) ==
LOC: ED 19:43
DX: J44.9 Chronic obstructive pulmonary disease, unspecified (principal); I10 Essential (primary) hypertension; F32.9 Major depressive disorder, single episode, unspecified; F17.210 Nicotine dependence, cigarettes, uncomplicated; Z79.899 Other long term (current) drug therapy
CPT/HCPCS: 36415; 71046; 80053; 83880; 84484; 85025; 93005; 99282; A9270-GY

== ENCOUNTER 2019-06-25 09:24 | Inpatient (IN) | payer MEDICARE, MEDICAID ==
--- OUTSIDE RECORDS SUMMARY | 2019-06-25 09:30 | XMS REPORT | Continuity of Care Document ---
:1945 External Reference #:[id number] Author Name Padma Clark MD (transmitted by agent of provider Qi Nicole) Address [address], [place] [address] Care Team Providers Name Role Phone Lenora Sandy MD - Cardiovascular Care Team Information Founder And Chief Technical Officer Disease [facility] [place] [facility] [place] Care Team Information Founder And Chief Technical Officer Diagnostic Meldia Hoff MD - Pulmonary Care Team Information Founder And Chief Technical Officer Disease Padma Clark MD - Internal Medicine Care Team Information Founder And Chief Technical Officer [phone] Problems Active Problems Provider Date Idiopathic peripheral neuropathy Anirudh Larios MD Onset: 01/13/2015 Dementia Unspecified Without Behavioral Anirudh Larios MD Onset: 01/13/2015 Disturbance Hypo-osmolality and or hyponatremia Anirudh Larios MD Onset: 04/06/2015 Unspecified dementia without behavioral Anirudh Larios MD Onset: 04/06/2015 disturbance Essential hypertension Nic Hinton DO [facility] Onset: 04/21/2015 Chronic obstructive lung disease Melida Hoff MD Onset: 06/22/2015 Disturbance in sleep behavior Melida Hoff MD Onset: 06/22/2015 Tobacco user Melida Hoff MD Onset: 06/22/2015 Multi-infarct dementia with delirium Anirudh Larios MD Onset: 10/02/2015 Mild recurrent major depression Alfa Barone M.D. Onset: 12/13/2015 Insomnia Alfa Barone M.D. Onset: 03/20/2016 Acquired trigger finger Alfa Barone M.D. Onset: 04/18/2016 Cervical disc disorder Alfa Barone M.D. 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 Onset: 10/16/2016 Mixed hyperlipidemia Alfa Barone M.D. Onset: 12/18/2016 Social History Type Date Description Comments Sex Unknown Tobacco Use Start: Unknown current cigarette Pt denies smoking pipe, smoker cigar, or using chewing tobacco. Smoking Status Reviewed: 06/24/19 current cigarette Pt denies smoking pipe, smoker cigar, or using chewing tobacco. ETOH Use Has consumed alcohol Past alcohol abuse in the past Tobacco Use Start: Unknown Patient is a current Smokes approximately smoker, smokes every 1/2 PPD day Recreational Drug Use Denies Drug Use Exercise Type/Frequency Does not exercise Allergies, Adverse Reactions, Alerts Description No Known Drug Allergies Medications Active Medications SIG Qnty Indications Ordering Date Provider Azithromycin take 2 tablets 6tabs J44.0 [facility], 250mg Tablets today; then one MD 0 tablet daily Methylprednisolone take as 21units J44.0 [facility], 4mg TBPK instructed on the MD Werner garrison Shingrix inject per 2units Z23 [facility], 50mcg/0.5ML protocol MD Raymond Suspension Rec Walker Basket rollator walker 1units R29.6 [facility], [facility] with a seat and MD Raymond basket to use daily during ambulation Gait/Transfer Belt Use as needed 1units R29.6 [facility], [facility] MD Raymond Bupropion Hydrochloride Take 1 Tablet By 90tabs F33.0 [facility], ER (XL) Mouth In The 9 300mg Tablets ER 24HR Morning Pulse Oximeter Use as directed 1units J44.1 Padmamary beth Clark, [facility] MD Raymond Albuterol Sulfate inhale 3 150ml J44.9 [facility], (2.5mg/3ML) milliliters via MD Raymond 0.083% Nebulizer nebulizer 3 times per day as needed Nebulizer for use 4 times QS Pema Mena, Kit/Tubing/Mouthpiece daily as needed MD Raymond Kit Gabapentin 2 by mouth in in 360caps [place] 300mg Capsules the morning and 2 MD Lani Larios at at night Incruse Ellipta inhale 1 puff by 30units [facility], 62.5mcg/Inh mouth every day MD Garibay Aerosol Shower Chair Use as directed 1units Nitro Pachikara, 8 M.D. Sertraline HCL take 1 tablet by 30tabs F33.0 [facility], 100mg Tablets mouth every day. MD Garibay maximum daily dose is 1 tablet Namenda XR 1 by mouth every 30caps [place] 28mg Caps ER 24HR day MD Isabelle Larios Xopenex HFA inhale two puffs 45units J44.9 [place]itro 45mcg/Act Aerosol by mouth every Pachikara, 6 four hours as M.D. needed Trazodone HCL Take 1 Tablet By 90tabs G47.00 [facility], 100mg Tablets Mouth Every Night MD Lion AT Bedtime Symbicort inhale 2 puffs by 20.4units J44.9 [facility], 80-4.5mcg/Act mouth twice a day MD Lion Aerosol Hydrocodone-Acetaminophe 1 by mouth every 30tabs Nitro n 12 hours prn. Pachikara, 0 5-325mg Tablets M.D. Vitamin D 2 by mouth every 180caps Nitro 2000Unit Capsules day Pachikara, 0 M.D. Aspir-Low 1 by mouth every Unknown 81mg Tablets DR day 0 Tamsulosin HCL Take 1 Capsule By 90caps [facility], 0.4mg Capsules Mouth Every Day MD 0 Verapamil HCL ER take 1 capsule by 90caps [facility], 120mg Caps mouth once daily MD 0 ER 24HR Pravastatin Sodium 1 tablet daily at 30tabs [facility], 40mg bedtime MD 0 Tablets Immunizations CPT Code Status Date Vaccine Reaction Lot # [id number] Given 03/11/2019 Influenza Virus Vaccine, Quadrivalent, Split, Preservative Free 61516 Given 05/15/2018 Influenza Virus Vaccine, Quadrivalent, Split, Preservative Free 26646 Given 01/07/2018 Tdap - [id number] Tetanus/Diptheria/Acellular Pertussis 77195 Given 09/18/2016 Pneumococcal Conjugate No immediate reaction - [id number] Vaccine 13 Valent For pw Intramuscular Use [id number] Given 03/05/2016 Fluzone Vaccine 37853 Given 03/22/2015 Influenza Virus 3Yrs & Over Vital Signs Date Vital Result Comment 06/24/2019 3:25pm Height 69 inches 5'9" Heart Rate 98 /min BP Systolic Sitting 137 mmHg BP Diastolic Sitting 78 mmHg Body Temperature 96.9 F O2 % BldC Oximetry 84 % room air 05/11/2019 9:47am Height 69 inches 5'9" Weight 187.50 lb Heart Rate 90 /min BP Systolic Sitting 133 mmHg BP Diastolic Sitting 77 mmHg Body Temperature 97.4 F O2 % BldC Oximetry 91 % BMI (Body Mass Index) 27.7 kg/m2 Results Test Acquired Date Facility Test Result H/L Range Note Lipid Profile 05/11/2019 [facility] Triglycerides 84 mg/dL 1 (Trig/Chol/HDL) [address] [place] [address] [phone] Cholesterol 161 mg/dL 2 HDL Cholesterol 51.2 mg/dL 3 LDL Cholesterol 93 mg/dL 4 Comp Metabolic 05/11/2019 [facility] Sodium 139 mmol/L Normal 135-145 Panel [address] [place] [address] [phone] Potassium 4.4 mmol/L Normal 3.5-5.0 Chloride 98 mmol/L Low 101-111 Co2 Carbon Dioxide 32 mmol/L Normal 22-32 Anion Gap 9 mmol/L Normal 2-11 Glucose 88 mg/dL Normal 70-100 Blood Urea Nitrogen 6 mg/dL Normal 6-24 Creatinine 0.50 mg/dL Low 0.67-1.17 BUN/Creatinine Ratio 12.0 Normal 8-20 Calcium 9.1 mg/dL Normal 8.6-10.3 Total Protein 6.2 g/dL Low 6.4-8.9 Albumin 3.6 g/dL Normal 3.2-5.2 Globulin 2.6 g/dL Normal 2-4 Albumin/Globulin Ratio 1.4 Normal 1-3 Total Bilirubin 0.50 mg/dL Normal 0.2-1.0 Alkaline Phosphatase 104 U/L Normal 34-104 Alt 5 U/L Low 7-52 Ast 10 U/L Low 13-39 Egfr Non- 162.5 >60 Egfr 196.7 >60 5 Laboratory test 05/11/2019 [facility] In House Hemoglobin A1c 4.7 Low 5-7 finding Laboratory test 02/01/2019 [facility] B-Type Natriuretic 69 pg/ mL <=[address] [address] [phone] CBC Auto Diff 02/01/2019 [facility] White Blood Count 12.3 High 3.5-10.[address] 10^3/[place] [address] [phone] Red Blood Count 4.21 10^6/uL Normal 4.18-5.48 Hemoglobin 13.7 g/dL Low 14.0-18.0 Hematocrit 41 % Low 42-52 Mean Corpuscular Volume 97 fL High 80-94 Mean Corpuscular Hemoglobin 33 pg High 27-31 Mean Corpuscular HGB Conc 34 g/dL Normal 31-36 Red Cell Distribution Width 15 % Normal 10-15 Platelet Count 230 10^3/uL Normal 150-450 Mean Platelet Volume 8.5 fL Normal 7.4-10.4 Abs Neutrophils 10.4 10^3/uL High 1.5-7.7 Abs Lymphocytes 0.9 10^3/uL Low 1.0-4.8 Abs Monocytes 1.0 10^3/uL High 0-0.8 Abs Eosinophils 0.0 10^3/uL Normal 0-0.6 Abs Basophils 0.0 10^3/uL Normal 0-0.2 Abs Nucleated RBC 0.0 10^3/uL Granulocyte % 84.6 % Lymphocyte % 7.1 % Monocyte % 7.8 % Eosinophil % 0.2 % Basophil % 0.3 % Nucleated Red Blood Cells % 0.0 Comp Metabolic Panel 02/01/2019 [facility] Sodium 134 mmol/L Low 135-[address] [place] [address] [phone] Potassium 3.6 mmol/L Normal 3.5-5.0 Chloride 101 mmol/L Normal 101-111 Co2 Carbon Dioxide 29 mmol/L Normal 22-32 Anion Gap 4 mmol/L Normal 2-11 Glucose 134 mg/dL High 70-100 Blood Urea Nitrogen 12 mg/dL Normal 6-24 Creatinine 0.60 mg/dL Low 0.67-1.17 BUN/Creatinine Ratio 20.0 Normal 8-20 Calcium 8.6 mg/dL Normal 8.6-10.3 Total Protein 5.6 g/dL Low 6.4-8.9 Albumin 3.3 g/dL Normal 3.2-5.2 Globulin 2.3 g/dL Normal 2-4 Albumin/Globulin Ratio 1.4 Normal 1-3 Total Bilirubin 0.60 mg/dL Normal 0.2-1.0 Alkaline Phosphatase 71 U/L Normal 34-104 Alt 8 U/L Normal 7-52 Ast 38 U/L Normal 13-39 Egfr Non- 131.7 >60 Egfr 159.4 >60 6 Laboratory test 02/01/2019 [facility] Troponin-I (TnI) 0.01 ng/ mL <0.04 7 finding [address] [place] [id number] [phone] Desirable: <150 Borderline High: 150-199 High: 200-499 Very High: >500 2 Desirable: <200 Borderline High: 200-239 High: >239 3 Low: <40 Desirable: 40-60 High: >60 4 Desirable: <100 Near Optimal: 100-129 Borderline High: 130-159 High: 160-189 Very High: >189 5 Because ethnic data is not always readily [...] 15-29 5 Kidney failure <15 (or dialysis) 6 Because ethnic data is not always readily [...] 15-29 5 Kidney failure <15 (or dialysis) 7 Troponin-I testing on Plasma Separator Tubes (PST) has a known false positive rate of 0.20-0.40%. All positive troponins reflex immediately to secondary confirmatory testing. Using the [employer] DxI 800 Access Immunoassay systems, the 99th percentile upper reference limit was demonstrated to be < 0.03 ng/mL. Procedures Date Code Description Status 06/29/2015 29878441 Colonoscopy Completed Medical Devices Description No Information Available Encounters Type Date Location Provider Dx Diagnosis Office Visit 05/11/2019 [facility] Jessica Clark MD E11.9 Type 2 diabetes 10:00a Medicine - Ccmob mellitus without complications F17.200 Nicotine dependence, unspecified, uncomplicated I10 Essential (primary) hypertension E78.2 Mixed hyperlipidemia G61.1 Serum neuropathy F33.0 Major depressive disorder, recurrent, mild F01.50 Vascular dementia without behavioral disturbance J44.9 Chronic obstructive pulmonary disease, unspecified M54.5 Low back pain Z23 Encounter for immunization Office Visit 02/22/2019 10:30a [place] [facility] Anirudh Larios, G60.9 [facility] idiopathic neuropathy, unspecified F01.50 Vascular dementia without behavioral disturbance R29.6 Repeated falls Office Visit 02/02/2019 8:20a [facility] Jessica Clark MD R07.89 Other chest Medicine - Ccmob pain R29.6 Repeated falls M25.552 Pain in left hip F17.200 Nicotine dependence, unspecified, uncomplicated F03.90 Unspecified dementia without behavioral disturbance Assessments Date Code Description Provider 06/24/2019 J44.0 Chronic obstructive pulmonary disease with acute Padma Clark MD lower respi 05/11/2019 E11.9 Type 2 diabetes mellitus without complications Padma Clark MD 05/11/2019 F17.200 Nicotine dependence, unspecified, uncomplicated Padma Clark MD 05/11/2019 I10 Essential (primary) hypertension Padma Clark MD 05/11/2019 E78.2 Mixed hyperlipidemia Padma Clark MD 05/11/2019 G61.1 Serum neuropathy Padma Clark MD 05/11/2019 F33.0 Major depressive disorder, recurrent, mild Padma Clark MD 05/11/2019 F01.50 Vascular dementia without behavioral disturbance Padma Clark MD 05/11/2019 J44.9 Chronic obstructive pulmonary disease, Padma Clark MD unspecified 05/11/2019 M54.5 Low back pain Padma Clark MD 05/11/2019 Z23 Encounter for immunization Padma Clark MD 02/22/2019 G60.9 Hereditary and idiopathic neuropathy, Anirudh Larios MD unspecified 02/22/2019 F01.50 Vascular dementia without behavioral disturbance Anirudh Larios MD 02/22/2019 R29.6 Repeated falls Anirudh Larios MD 02/02/2019 R07.89 Other chest pain Padma Clark MD 02/02/2019 R29.6 Repeated falls Padma Clark MD 02/02/2019 M25.552 Pain in left hip Padma Clark MD 02/02/2019 F17.200 Nicotine dependence, unspecified, uncomplicated Padma Clark MD 02/02/2019 F03.90 Unspecified dementia without behavioral Padma Clark MD disturbance Plan of Treatment Future Appointment(s):07/28/2019 2:00 pm - Terrell Galeas MD at [facility] Internal Medicine - [address]/09/2019 10:00 am - [facility] Clark [facility] am - Anirudh Larios MD at [place] [facility]06/24/2019 - Padma Clark MDJ44.0 Chronic obstructive pulmonary disease with acute lower respiNew Medication:Azithromycin 250 mg - take 2 tablets today; then one tablet dailyMethylprednisolone 4 mg - take as instructed on the pakReferral:Melida Hoff MD, Pulmonary Diseases Functional Status Description No Information Available Mental Status Description No Information Available Referrals Refer to Reason for Referral Status Appt Date Melida Hoff MD Worsening COPD Sent [address] [place] [id number] [phone]
--- OUTSIDE RECORDS SUMMARY | 2019-06-25 09:30 | XMS REPORT | Continuity of Care Document ---
:1945 External Reference #:[id number] Author Name Padma Clark MD (transmitted by agent of provider Qi Nicole) Address [address] [facility] [address] [facility] [address] [facility], [place] [address] Care Team Providers Name Role Phone Lenora Sandy MD - Cardiovascular Care Team Information Histology Technologist Disease [facility] [place] [facility] - [place] Care Team Information Histology Technologist Diagnostic Melida Hoff MD - Pulmonary Care Team Information Histology Technologist Disease Padma Clark MD - Internal Medicine Care Team Information Histology Technologist Problems Active Problems Provider Date Idiopathic peripheral neuropathy Anirudh Larios MD Onset: 01/13/2015 Dementia Unspecified Without Behavioral Anirudh Larios MD Onset: 01/13/2015 Disturbance Hypo-osmolality and or hyponatremia Anirudh Larios MD Onset: 04/06/2015 Unspecified dementia without behavioral Anirudh Larios MD Onset: 04/06/2015 disturbance Essential hypertension Nic Hinton DO [facility] Onset: 04/21/2015 Chronic obstructive lung disease [...] Provider Azithromycin take 2 tablets 6tabs J44.0 [facility], 250mg Tablets today; then one MD 0 tablet daily Methylprednisolone take as 21units J44.0 [facility], 4mg TBPK instructed on the MD Werner garrison Shingrix inject per 2units Z23 [facility], 50mcg/0.5ML protocol MD Raymond Suspension Rec Walker Basket rollator walker 1units R29.6 [facility], [facility] [place] and MD Raymond basket to use daily during ambulation Gait/Transfer Belt Use as needed 1units R29.6 [facility], [facility] MD Raymond Bupropion Hydrochloride Take 1 Tablet By 90tabs F33.0 [facility], ER (XL) Mouth In The 9 300mg Tablets ER 24HR Morning Pulse Oximeter Use as directed 1units J44.1 Padmamary beth Clark, [facility] [place] Raymond Albuterol Sulfate inhale 3 150ml J44.9 [facility], (2.5mg/3ML) milliliters via MD Raymond 0.083% Nebulizer nebulizer 3 times per day as needed Nebulizer for use 4 times QS Pema Mena, Kit/Tubing/Mouthpiece daily as needed MD Raymond Kit Gabapentin 2 by mouth in in 360caps [place] 300mg Capsules the morning and 2 MD Lani Larios at at night Incruse Ellipta inhale 1 puff by 30units [facility], 62.5mcg/Inh mouth every day MD Garibay Aerosol Shower Chair Use as directed 1units [place] Pachikara, 8 M.D. Sertraline HCL take 1 tablet by 30tabs F33.0 [facility], 100mg Tablets mouth every day. MD Garibay maximum daily dose is 1 tablet Namenda XR 1 by mouth every 30caps [place] 28mg Caps ER 24HR day MD Isabelle Larios Xopenex HFA inhale two puffs 45units J44.9 [place] 45mcg/Act Aerosol by mouth every Pachikara, 6 four hours as M.D. needed Trazodone HCL Take 1 Tablet By 90tabs G47.00 [facility], 100mg Tablets Mouth Every Night MD Lion AT Bedtime Symbicort inhale 2 puffs by 20.4units J44.9 [facility], 80-4.5mcg/Act mouth twice a day MD Lion Aerosol Hydrocodone-Acetaminophe 1 by mouth every 30tabs [place] n 12 hours prn. Pachikara, 0 5-325mg Tablets M.D. Vitamin D 2 by mouth every 180caps [place] 2000Unit Capsules day Pachikara, 0 M.D. Aspir-Low 1 by mouth every Unknown 81mg Tablets DR day 0 Tamsulosin HCL Take 1 Capsule By 90caps [facility], 0.4mg Capsules Mouth Every Day MD 0 Verapamil HCL ER take 1 capsule by 90caps [facility], 120mg Caps mouth once daily MD 0 ER 24HR Pravastatin Sodium 1 tablet daily at 30tabs [facility], 40mg bedtime MD 0 Tablets Immunizations CPT Code Status Date Vaccine Reaction Lot # [id number] Given 03/11/2019 Influenza Virus Vaccine, Quadrivalent, Split, Preservative Free [id number] Given 05/15/2018 Influenza Virus Vaccine, Quadrivalent, Split, Preservative Free 50877 Given 01/07/2018 Tdap - [id number] Tetanus/Diptheria/Acellular Pertussis 93312 Given 09/18/2016 Pneumococcal Conjugate No immediate reaction - [id number] Vaccine 13 Valent For pw Intramuscular Use [id number] Given 03/05/2016 Fluzone Vaccine 92134 Given 03/22/2015 Influenza Virus 3Yrs & Over [...] Result H/L Range Note Lipid Profile 05/11/2019 [facility] Triglycerides 84 mg/dL 1 (Trig/Chol/HDL) [address] [place] [address] [phone] Cholesterol 161 mg/dL 2 HDL Cholesterol 51.2 mg/dL 3 LDL Cholesterol 93 mg/dL 4 Comp Metabolic 05/11/2019 [facility] Sodium 139 mmol/L Normal 135-145 Panel [address] [place] [address] [phone] Potassium 4.4 mmol/L Normal 3.5-5.0 Chloride 98 [...] Egfr 196.7 >60 5 Laboratory test 05/11/2019 [facility] In House Hemoglobin A1c 4.7 Low 5-7 finding Laboratory test 02/01/2019 [facility] B-Type Natriuretic 69 pg/ mL <=[address] [place] [address] [phone] CBC Auto Diff 02/01/2019 [facility] White Blood Count 12.3 High 3.5-10.[address] 10^3/[place] [address] [phone] Red Blood Count 4.21 10^6/uL Normal 4.18-5.48 [...] Cells % 0.0 Comp Metabolic Panel 02/01/2019 [facility] Sodium 134 mmol/L Low 135-[address] [place] [address] [phone] Potassium 3.6 mmol/L Normal 3.5-5.0 Chloride 101 [...] Egfr 159.4 >60 6 Laboratory test 02/01/2019 [facility] Troponin-I (TnI) 0.01 ng/ mL <0.04 7 finding [address] [place] [id number] [phone] Desirable: <150 Borderline High: 150-199 High: [...] immediately to secondary confirmatory testing. Using the [employer] DxI 800 Access Immunoassay systems, the 99th percentile upper reference limit was demonstrated to be < 0.03 ng/mL. Procedures Date Code Description Status 06/29/2015 [id number] Colonoscopy Completed Medical Devices Description No Information Available Encounters Type Date Location Provider Dx Diagnosis Office Visit 05/11/2019 [facility] Jessica Clark MD E11.9 Type 2 diabetes 10:00a Medicine - Ccmob mellitus without complications F17.200 Nicotine dependence, unspecified, uncomplicated I10 Essential (primary) hypertension E78.2 Mixed hyperlipidemia G61.1 Serum neuropathy F33.0 Major depressive disorder, recurrent, mild F01.50 Vascular dementia without behavioral disturbance J44.9 Chronic obstructive pulmonary disease, unspecified M54.5 Low back pain Z23 Encounter for immunization Office Visit 02/22/2019 10:30a [place] [facility] Anirudh Larios, G60.9 [facility] idiopathic neuropathy, unspecified F01.50 Vascular dementia without behavioral disturbance R29.6 Repeated falls Office Visit 02/02/2019 8:20a [facility] Jessica Clark MD R07.89 Other chest Medicine [...] 2:00 pm - Terrell Galeas MD at [facility] Internal Medicine - [address]/09/2019 10:00 am - Pad[facility] Clark [facility] am - Anirudh Larios MD at [place] [facility]06/24/2019 - Padma Clark MDJ44.0 Chronic obstructive pulmonary [...] Worsening COPD Sent [address] [place] [phone]
--- OUTSIDE RECORDS SUMMARY | 2019-06-25 09:31 | XMS REPORT | Continuity of Care Document ---
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 Smoking Status Reviewed: 05/11/19 current cigarette Pt denies smoking pipe, smoker [...] Medications SIG Qnty Indications Ordering Date Provider Shingrix inject per 2units Z23 Padma Clark MD 05/11/2019 50mcg/0.5ML protocol Suspension Rec Walker Basket rollator walker 1units R29.6 Padma Clark MD 04/14/2019 Misc with a seat and basket to use daily during ambulation Gait/Transfer Belt Use as needed 1units R29.6 Padma Clark MD 02/02/2019 Misc Bupropion 1 tab in in the 90tabs F33.0 Padma Clark MD 11/16/2018 Hydrochloride ER morning (XL) 300mg Tablets ER 24HR Pulse Oximeter Use as directed 1units J44.1 Padma Clark MD 10/02/2018 Misc Albuterol Sulfate inhale 3 150ml J44.9 Padma Clark MD 06/09/2018 milliliters via (2.5mg/3ML) 0.083% nebulizer 3 times Nebulizer per day as needed Nebulizer for use 4 times QS Pema Mena MD 06/04/2018 Kit/Tubing/Mouthpiec daily as needed e Kit Gabapentin 2 by mouth in in 360caps Anirudh Larios, 01/13/2018 300mg the morning and 2 MD Capsules at at night Incruse Ellipta inhale 1 puff by 30units Padma Clark MD 11/27/2017 mouth every day 62.5mcg/Inh Aerosol Shower Chair Use as directed 1units Alfa 11/25/2017 Wendy Barone Sertraline HCL Take 1 Tablet By 30tabs F33.0 Karen Rosa, 08/29/2017 100mg Mouth Every Day. N.P. Tablets Maximum Daily Dose Is 1 Tablet Namenda XR 1 by mouth every 30caps Anirudh Garciapert, 08/23/2016 28mg Caps day MD ER 24HR Trazodone HCL Take 1 Tablet By 90tabs G47.00 Padma Clark MD 10/11/2015 100mg Mouth Every Night Tablets AT Bedtime Xopenex HFA inhale two puffs 45units J44.9 Alfa 10/11/2015 45mcg/Act by mouth every Wendy Barone Aerosol four hours as needed Symbicort inhale 2 puffs by 20.4units J44.9 Padma Clark MD 06/22/2015 mouth twice a day 80-4.5mcg/Act Aerosol Hydrocodone-Acetamin 1 by mouth every 30tabs [place] ophen 12 hours prn. Wendy Barone 5-325mg Tablets Vitamin D 2 by mouth every 180caps [place] 2000Unit day Wendy Barone Capsules Aspir-Low 1 by mouth every Unknown 81mg day Tablets DR Tamsulosin HCL 1 by mouth every 90caps Padma Clark MD 0.4mg day Capsules Verapamil HCL ER Take 1 Capsule By 90caps Pema Mena MD Mouth Once Daily 120mg Caps ER 24HR Pravastatin Sodium 1 tablet daily at 30tabs Padma Clark MD bedtime 40mg Tablets History Medications Spiriva Handihaler take one inhalation 30caps Other Ordering 12/18/2018 - a day Provider 02/01/2019 18mcg Capsules Cefuroxime Axetil 1 tabs by mouth 20tabs Other Ordering 12/18/2018 - 500mg twice a day x5days Provider 05/11/2019 Tablets Guaifenesin-DM 10 ml by mouth Other Ordering 12/18/2018 - every 6 hours as Provider 05/11/2019 100-10mg/5ML Liquid needed Haloperidol 1 tab by mouth Other Ordering 12/18/2018 - 5mg Tablets three times a day Provider 02/01/2019 as needed Immunizations CPT Code Status Date Vaccine Reaction Lot # 12914 Given 03/11/2019 Influenza Virus Vaccine, Quadrivalent, Split, Preservative Free 60712 Given 05/15/2018 Influenza Virus Vaccine, Quadrivalent, Split, Preservative Free [id number] Given 01/07/2018 Tdap - [id number] Tetanus/Diptheria/Acellular Pertussis 88096 Given 09/18/2016 Pneumococcal Conjugate No immediate reaction - [id number] Vaccine 13 Valent For pw Intramuscular Use [id number] Given 03/05/2016 Fluzone Vaccine 80554 Given 03/22/2015 Influenza Virus 3Yrs & Over Vital Signs Date Vital Result Comment 05/11/2019 9:47am Height 69 inches 5'9" Weight 187.50 lb Heart Rate 90 /min BP Systolic Sitting 133 mmHg BP Diastolic Sitting 77 mmHg Body Temperature 97.4 F O2 % BldC Oximetry 91 % BMI (Body Mass Index) 27.7 kg/m2 02/22/2019 10:44am Height 69 inches 5'9" Weight 194.38 lb Heart Rate 68 /min BP Systolic Sitting 142 mmHg BP Diastolic Sitting 80 mmHg Respiratory Rate 16 /min BMI (Body Mass Index) 28.7 kg/m2 Results Test Acquired Date Facility Test Result H/L Range Note Laboratory test 05/11/2019 [facility] In House Hemoglobin A1c 4.7 Low 5-7 finding Laboratory test 02/01/2019 [facility] B-Type 69 pg/mL <=[address] [place] [address] Peptide BNP [phone] CBC Auto Diff 02/01/2019 [facility] White Blood 12.3 High 3.5- 10.[address] Count 10^3/[place] [address] [phone] Red Blood Count 4.21 10^6/uL Normal 4.18-5.48 [...] Cells % 0.0 Comp Metabolic Panel 02/01/2019 [facility] Sodium 134 mmol/L Low 135-[address] [place] [address] [phone] Potassium 3.6 mmol/L Normal 3.5-5.0 Chloride 101 [...] Egfr Non- 131.7 >60 Egfr 159.4 >60 1 Laboratory test 02/01/2019 [facility] Troponin-I 0.01 <0.04 [address] (TnI) ng/[place] [address] [phone] CBC Auto Diff 12/14/2018 [facility] White Blood 18.1 High 3.5- 10.[address] Count 10^3/[place] [address] [phone] Red Blood Count 4.63 10^6/uL Normal 4.18-5.48 Hemoglobin 14.8 g/dL Normal 14.0-18.0 Hematocrit 44 % Normal 42-52 Mean Corpuscular Volume 95 fL High 80-94 Mean Corpuscular Hemoglobin 32 pg High 27-31 Mean Corpuscular HGB Conc 34 g/dL Normal 31-36 Red Cell Distribution Width 14 % Normal 10-15 Platelet Count 267 10^3/uL Normal 150-450 Mean Platelet Volume 7.9 fL Normal 7.4-10.4 Abs Neutrophils 16.2 10^3/uL High 1.5-7.7 Abs Lymphocytes 0.9 10^3/uL Low 1.0-4.8 Abs Monocytes 1.0 10^3/uL High 0-0.8 Abs Eosinophils 0.0 10^3/uL Normal 0-0.6 Abs Basophils 0.1 10^3/uL Normal 0-0.2 Abs Nucleated RBC 0.0 10^3/uL Granulocyte % 89.5 % Lymphocyte % 4.8 % Monocyte % 5.3 % Eosinophil % 0.1 % Basophil % 0.3 % Nucleated Red Blood Cells % 0.0 Comp Metabolic Panel 12/14/2018 [facility] Sodium 132 mmol/L Low 135-[address] [place] [address] [phone] Potassium 3.9 mmol/L Normal 3.5-5.0 Chloride 101 mmol/L Normal 101-111 Co2 Carbon Dioxide 26 mmol/L Normal 22-32 Anion Gap 5 mmol/L Normal 2-11 Glucose 135 mg/dL High 70-100 Blood Urea Nitrogen 8 mg/dL Normal 6-24 Creatinine 0.66 mg/dL Low 0.67-1.17 BUN/Creatinine Ratio 12.1 Normal 8-20 Calcium 8.4 mg/dL Low 8.6-10.3 Total Protein 6.0 g/dL Low 6.4-8.9 Albumin 3.4 g/dL Normal 3.2-5.2 Globulin 2.6 g/dL Normal 2-4 Albumin/Globulin Ratio 1.3 Normal 1-3 Total Bilirubin 0.40 mg/dL Normal 0.2-1.0 Alkaline Phosphatase 80 U/L Normal 34-104 Alt 5 U/L Low 7-52 Ast 9 U/L Low 13-39 Egfr Non- 118.0 >60 Egfr 142.8 >60 3 Laboratory test 12/14/2018 [facility] Creatine 67 U/L Normal 10-223 finding [address] [facility] Kinase(CK) [place] [address] [phone] C Reactive Protein 31.42 mg/L High <8.01 Troponin-I (TnI) 0.00 ng/mL <0.04 4 CKMB 12/14/2018 [facility] CKMB ng/mL 2.5 ng/mL Normal 0.6- 6.[address] [place] [address] [phone] Laboratory test 12/14/2018 [facility] Lactic Acid 1.0 mmol/L Normal 0.5-2.0 5 finding [address] [place] [address] [phone] Partial Thrombo Time PTT 37.2 seconds Normal 26.0-38.0 B-Type Natriuretic Peptide BNP 46 pg/mL <=100 1 Because ethnic data is not always [...] 5 Kidney failure <15 (or dialysis) 2 Troponin-I testing on Plasma Separator Tubes (PST) has a known false positive rate of 0.20-0.40%. All positive troponins reflex immediately to secondary confirmatory testing. Using the [employer] DxI 800 Access Immunoassay systems, the 99th percentile upper reference limit was demonstrated to be < 0.03 ng/mL. 3 Because ethnic data is not always readily [...] 15-29 5 Kidney failure <15 (or dialysis) 4 Troponin-I testing on Plasma Separator Tubes (PST) has a known false positive rate of 0.20-0.40%. All positive troponins reflex immediately to secondary confirmatory testing. Using the [employer] DxI 800 Access Immunoassay systems, the 99th percentile upper reference limit was demonstrated to be < 0.03 ng/mL. 5 [facility] Severe Sepsis and Septic Shock Management Bundle Measure requires all lactic acids initially measuring >2.0 mmol/L be repeated. 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, unspecified F01.50 Vascular dementia without behavioral disturbance R29.6 Repeated falls Office Visit 02/02/2019 8:20a [facility] Internal Padma Clark MD R07.89 Other chest Medicine - Ccmob pain R29.6 Repeated falls M25.552 Pain in left hip F17.200 Nicotine dependence, unspecified, uncomplicated F03.90 Unspecified dementia without behavioral disturbance Office Visit 12/17/2018 1:04p [facility] J44.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,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[facility], pulmon disease Hospitalists RE[facility] with (acute) lower resp infct J18.9 Pneumonia, unspecified organism I10 Essential (primary) hypertension F17.200 Nicotine dependence, unspecified, uncomplicated Office Visit 12/16/2018 1:04p [facility] J44.0 [facility] obstructive Assoc,[facility], pulmon disease Hospitalists REGRO[place] with (acute) lower resp infct J18.9 Pneumonia, unspecified organism I10 Essential (primary) hypertension F03.90 Unspecified dementia without behavioral disturbance Office Visit 12/15/2018 1:04p [facility] J44.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,[facility], pulmon disease Hospitalists RE[place] with (acute) lower resp infct J18.9 Pneumonia, unspecified organism I10 Essential (primary) hypertension F03.90 Unspecified dementia without behavioral disturbance F17.200 Nicotine dependence, unspecified, uncomplicated Office Visit 12/14/2018 1:03p [facility] J44.0 [facility] obstructive Assoc, MD [place] pulmon disease Hospitalists with (acute) lower resp infct J18.9 Pneumonia, unspecified organism I10 Essential (primary) hypertension F17.200 Nicotine dependence, unspecified, uncomplicated Assessments Date Code Description Provider 05/11/2019 E11.9 Type 2 diabetes mellitus without Padma Clark MD complications 05/11/2019 F17.200 Nicotine dependence, unspecified, Padma Clark MD uncomplicated 05/11/2019 I10 Essential (primary) hypertension Padma Clark MD 05/11/2019 E78.2 Mixed hyperlipidemia Padma Clark MD 05/11/2019 G61.1 Serum neuropathy Padma Clark MD 05/11/2019 F33.0 Major depressive disorder, Padma Clark MD recurrent, mild 05/11/2019 F01.50 Vascular dementia without behavioral Padma Clark MD disturbance 05/11/2019 J44.9 Chronic obstructive pulmonary Padma Clark MD disease, unspecified 05/11/2019 M54.5 Low back pain Padma Clark MD 05/11/2019 Z23 Encounter for immunization Padma Clark MD 02/22/2019 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, unspecified 02/22/2019 F01.50 Vascular dementia without behavioral Anirudh Larios MD disturbance 02/22/2019 R29.6 Repeated falls Anirudh Larios MD 02/02/2019 R07.89 Other chest pain Padma Clark MD 02/02/2019 R29.6 Repeated falls Padma Clark MD 02/02/2019 M25.552 Pain in left hip Padma Clark MD 02/02/2019 F17.200 Nicotine dependence, unspecified, Padma Clark MD uncomplicated 02/02/2019 F03.90 Unspecified dementia without Padma Clark MD behavioral disturbance 12/17/2018 J44.0 Chronic obstructive pulmonary Rosie Radha Doto, REGROOVER disease with acute lower respi 12/17/2018 J18.9 Pneumonia, unspecified organism Rosie Radha Doto, REGROOVER 12/17/2018 I10 Essential (primary) hypertension Rosie Radha Doto, REGROOVER 12/17/2018 F17.200 Nicotine dependence, unspecified, Rosie Radha Doto, REGROOVER uncomplicated 12/16/2018 J44.0 Chronic obstructive pulmonary Rosei Radha Doto, REGROOVER disease with acute lower respi 12/16/2018 J18.9 Pneumonia, unspecified organism Rosie Radha Doto, REGROOVER 12/16/2018 I10 Essential (primary) hypertension Rosie Radha Doto, REGROOVER 12/16/2018 F03.90 Unspecified dementia without Rosie Radha Doto, REGROOVER behavioral disturbance 12/15/2018 I50.9 Heart failure, unspecified Steffen Diaz M.D., [facility] 12/15/2018 J44.0 Chronic obstructive pulmonary Rosie Radha Doto, REGROOVER disease with acute lower respi 12/15/2018 J18.9 Pneumonia, unspecified organism Rosie Radha Doto, REGROOVER 12/15/2018 I10 Essential (primary) hypertension Rosie Radha Doto, REGR[employer]OVER 12/15/2018 F03.90 Unspecified dementia without Rosie Radha Doto, REGROOVER behavioral disturbance 12/15/2018 F17.200 Nicotine dependence, unspecified, Rosie Radha Doto, REGROOVER uncomplicated 12/14/2018 J44.0 Chronic obstructive pulmonary Dulce Godwin MD disease with acute lower respi 12/14/2018 J18.9 Pneumonia, unspecified organism Dulce Godwin MD 12/14/2018 I10 Essential (primary) hypertension Dulce Godwin MD 12/14/2018 F17.200 Nicotine dependence, unspecified, Dulce Godwin MD uncomplicated Plan of Treatment Future Appointment(s):11/09/2019 10:00 am - Padma Clark [facility] 10:15 am - Anirudh Larios MD at [facility]05/11/2019 - Padma Clark MDE11.9 Type 2 diabetes mellitus without complicationsComments:Diabetes has zpyypqidL98.200 Nicotine dependence, unspecified, uncomplicatedComments:Ongoing smoking 1/2 PPDI10 Essential (primary ) hypertensionComments:Your blood pressure is fine. Continue the same medicationFollow up:F/U 6 zuizgwY04.2 Mixed hyperlipidemiaComments:Stay on the same dose of cpiwgzheqzQ87.1 Serum neuropathyComments:Continue mmhlbgeiaiJ64.0 Major depressive disorder, recurrent, mildComments:Continue wellbutrin/ sertraline/ lskidcfpcU27.50 Vascular dementia without behavioral disturbanceComments:Continue LvpqitaH61.9 Chronic obstructive pulmonary disease , unspecifiedComments:Continue to f/u with pulmonary xauaosR72.5 Low back painComments:Worse latelyManaging mostly without pain medsZ23 Encounter for immunizationNew Medication:Shingrix 50 mcg/0.5ML - inject per protocol Functional Status Description No Information Available Mental Status Description No Information Available Referrals Description No Information Available
[2019-06-25] MEDS ORDERED: NS 0.9% 1000 ML** 1,000 ML IV ONE (09:36)
[2019-06-25 09:55] LABS: ABS Eosinophils 0.1 10^3/ul (0-0.6); ABS Lymphocytes 0.4 10^3/ul (1.0-4.8); ABS Monocytes 0.8 10^3/ul (0-0.8); ABS Neutrophils 14.1 10^3/ul (1.5-7.7); Eosinophil % 0.3 %; Hematocrit 41 % (42-52); Hemoglobin 13.6 g/dL (14.0-18.0); Lymphocyte % 2.3 %; Mean Corpuscular HGB Conc 33 g/dL (31-36); Mean Corpuscular Hemoglobin 33 pg (27-31); Mean Corpuscular Volume 101 fL (80-94); Mean Platelet Volume 8.2 fL (7.4-10.4); Platelet Count 276 10^3/uL (150-450); Red Blood Count 4.08 10^6 /uL (4.18-5.48); Red Cell Distribution Width 16 % (10-15); White Blood Count 15.4 10^3/uL (3.5-10.8)
[2019-06-25 10:13] LABS: Albumin 3.2 g/dL (3.2-5.2); Calcium 8.8 mg/dL (8.6-10.3); EGFR African American 159.4 (>60); EGFR Non-African American 131.7 (>60); Globulin 3.1 g/dL (2-4); Potassium 4.4 mmol/L (3.5-5.0); Total Bilirubin 0.7 mg/dL (0.2-1.0); Total Protein 6.3 g/dL (6.4-8.9)
[2019-06-25 10:14] LABS: Troponin I 0.01 ng/mL (<0.03)
[2019-06-25] MEDS ORDERED: cefTRIAXone(*) 1 GM in NS 0.9% 50 ML* 50 ML IVPB ONE (10:14)
[2019-06-25] MEDS ORDERED: Azithromycin 500 mg/250 ml NS 500 MG/250 ML BAG IVPB ONE (10:14)
[2019-06-25 10:48] LABS: Magnesium 1.7 mg/dL (1.9-2.7)
--- NOTE | 2019-06-25 10:50 | ED ---
Complex/Multi-Sys Presentation - HPI Summary HPI Summary: 73 year old M presenting to [facility] accompanied by EMS and female maxillofacial prosthodontist complains of an episode of bilateral arm weakness earlier today and low O2 sat which has since resolved. Patient was sitting on toilet but could not get up due to arm weakness and hit his head as he attempted to get up per female maxillofacial prosthodontist. Pt O2 sat was 73% on RA which was brought up to 98% on high flow o2 per EMS. Pt was sick earlier this week and was placed on home O2 by the doctors but has not received it yet. PMHx of COPD, HTN, diabetes, PNA, dementia, and CHF. PSHx of smoking 2 cigarettes a day. Pt currently has a mass in his lung that is being followed by other physicians. Patient denies trouble breathing, fever, CP, ALEJANDRO, neck pain, nausea, vomiting, abdominal pain, and pain or swelling in the legs. The patient rates the pain 0/10 in severity. Symptoms aggravated by nothing. Symptoms alleviated by nothing. - History Of Current Complaint Chief Complaint: EDWeakness Time Seen by Provider: 06/25/19 09:35 Hx Obtained From: Patient, Family/Curing Room Supervisor, EMS Onset/Duration: Sudden Onset, Resolved Severity Currently: None Aggravating Factor(s): Nothing Alleviating Factor(s): Nothing Associated Signs And Symptoms: Positive: Weakness - Bilateral arm weakness, Other - negative - dyspnea, neck pain, pain or swelling in legs. Negative: Headache, Chest Pain, Nausea, Vomiting, Abdominal Pain, Fever Related History: Recent Hospitalization - Placed on home O2 but has not received yet - Allergies/Home Medications Allergies/Adverse Reactions: Allergies Allergy/AdvReac Type Severity Reaction Status Date / Time No Known Allergies Allergy Verified 06/25/19 09:32 Home Medications: Home Medications Albuterol 2.5MG/3ML (0.083%)* [Ventolin 2.5 MG/3 ML NEB.SHAY*] 2.5 mg INH TID PRN 06/25/19 [History Confirmed 06/25/19] Aspirin EC TAB* [Ecotrin EC Low Dose 81 MG*] 81 mg PO DAILY 06/25/19 [History Confirmed 06/25/19] Azithromycin TAB* [Zithromax TAB (Z-RIK) 250 mg #6 tabs] 250 mg PO DAILY [History Confirmed 06/25/19] Cholecalciferol TAB* [Vitamin D TAB*] 2,000 units PO DAILY 06/25/19 [History Confirmed 06/25/19] Gabapentin CAP(*) [Neurontin 300 CAP(*)] 600 mg PO BID 06/25/19 [History Confirmed 06/25/19] Hydrocodone/Acetaminophen [Hydrocodone/Acetaminophen 5-325 mg] 1 tab PO Q12H PRN 06/25/19 [History Confirmed 06/25/19] Levalbuterol HFA INHALER* [Xopenex Hfa Inhaler*] 2 puff INH Q4H PRN 06/25/19 [ History Confirmed 06/25/19] Tamsulosin CAP* [Flomax CAP*] 0.4 mg PO DAILY 06/25/19 [History Confirmed ] Umeclidinium 62.5 MDI(NF) [Incruse ELLIPTA MDI (NF)] 1 puff INH DAILY 06/25/19 [ History Confirmed 06/25/19] Varicella-Zoster GE/AS01B/PF [Shingrix Vial Kit*] 50 mcg IM ONCE 06/25/19 [ History Confirmed 06/25/19] methylPREDNISolone TAB* [Medrol TAB*] 4 - 8 mg PO .SEE RIK 06/25/19 [History Confirmed 06/25/19] PMH/Surg Hx/FS Hx/Imm Hx Endocrine/Hematology History: Denies: Hx Anticoagulant Therapy, Hx Blood Disorders, Hx Blood Transfusions, Hx Bone Marrow Disease, Hx Diabetes, Hx Systemic Lupus Erythematosus, Hx Sickle Cell Disease, Hx Thyroid Disease, Hx Anemia, Hx Unexplained Bleeding, Other Endocrine/Hematological Disorders Cardiovascular History: Reports: Hx Hypertension, Other Cardiovascular Problems/ Disorders Denies: Hx Pacemaker/ICD Respiratory History: Reports: Hx Asthma, Hx Chronic Obstructive Pulmonary Disease (COPD) Denies: Hx Chronic Bronchitis, Hx Cystic Fibrosis, Hx Lung Cancer, Hx Pleural Effusion, Hx Pneumonia, Hx Pulmonary Edema, Hx Pulmonary Embolism, Hx Seasonal Allergies, Hx Sleep Apnea GI History: Denies: Hx Cirrhosis, Hx Crohn's Disease, Hx Diverticulosis, Hx Gall Bladder Disease, Hx Gastroesophageal Reflux Disease, Hx Gastrointestinal Bleed, Hx Hiatal Hernia, Hx Irritable Bowel, Hx Jaundice, Hx Obstructive Bowel, Hx Ileostomy, Hx Pyloric Stenosis, Hx Ulcer, Other GI Disorders History: Denies: Hx Acute Renal Failure, Hx Benign Prostatic Hyperplasia, Hx Chronic Renal Failure, Hx Dialysis, Hx Kidney Infection, Hx Kidney Stones, Hx Renal Disease, Other Problems/Disorders Musculoskeletal History: Reports: Hx Arthritis Denies: Hx Back Problems, Hx Bursitis, Hx Congenital Bone Abnormalities, Hx Fibromyalgia, Hx Gout, Hx Osteoporosis, Hx Scoliosis, Hx Tendonitis, Other Musculoskeletal History Sensory History: Reports: Hx Contacts or Glasses Denies: Hx Cataracts, Hx Eye Injury, Hx Eye Prosthesis, Hx Glaucoma, Hx Legally Blind, Hx Macular Degeneration, Hx Vision Problem, Hx Deafness, Hx Hearing Aid, Hx Hearing Problem, Other Sensory Impairments Opthamlomology History: Reports: Hx Contacts or Glasses Denies: Hx Cataracts, Hx Eye Injury, Hx Eye Prosthesis, Hx Glaucoma, Hx Legally Blind, Hx Macular Degeneration, Hx Vision Problem, Other Sensory Impairments Neurological History: Reports: Hx Dementia, Hx Migraine Denies: Hx Developmental Delay, Hx Headaches, Hx Nerve Disease, Hx Seizures, Hx Spinal Cord Injury, Hx Transient Ischemic Attacks (TIA), Other Neuro Impairments/Disorders Psychiatric History: Reports: Hx Depression Denies: Hx Anxiety, Hx Attention Deficit Hyperactivity Disorder, Hx Eating Disorder, Hx Panic Disorder, Hx Post Traumatic Stress Disorder, Hx Inpatient Treatment, Hx Community Mental Health Tx, Hx Schizophrenia, Hx Bipolar Disorder , Hx Suicide Attempt, Hx of Violent Episodes Against Others, Hx Substance Abuse , Other Psychiatric Issues/Disorders - Cancer History Hx Chemotherapy: No Hx Radiation Therapy: No Hx Palliative Cancer Treatment: No - Surgical History Surgery Procedure, Year, and Place: ESOPHAGEAL TUMOR REMOVED,APPY Hx Anesthesia Reactions: No Infectious Disease History: No Infectious Disease History: Denies: Hx Clostridium Difficile, Hx Hepatitis, Hx Human Immunodeficiency Virus (HIV), Hx of Known/Suspected MRSA, Hx Shingles, Hx Tuberculosis, Hx Known/ Suspected VRE, Hx Known/Suspected VRSA, History Other Infectious Disease, Traveled Outside the [place] in Last 30 Days - Family History Known Family History: Negative: Hypertension - Social History Alcohol Use: None Hx Substance Use: No Substance Use Type: Reports: None Hx Tobacco Use: Yes Smoking Status (MU): Light Every Day Tobacco Smoker Type: Cigarettes Amount Used/How Often: 1/2 pack a day Length of Time of Smoking/Using Tobacco: 36 years Have You Smoked in the Last Year: Yes Review of Systems Negative: Fever Negative: Chest Pain Respiratory: Other - Low O2 sat Negative: Shortness Of Breath Negative: Abdominal Pain, Vomiting, Nausea Musculoskeletal: Negative - no neck pain or pain or swelling in legs Positive: Weakness - Bilateral arm weakness since resolved. Negative: Headache All Other Systems Reviewed And Are Negative: Yes Physical Exam - Summary Physical Exam Summary: Constitutional: Pt appears sleepy/sedated, well-developed, well-nourished Skin: Warm, Dry HENT: Normocephalic; Atraumatic Eyes: Conjunctiva normal Neck: Musculoskeletal ROM normal neck. (-) JVD, (-) Stridor, (-) Tracheal deviation Cardio: Rhythm regular, rate normal, Heart sounds normal; Intact distal pulses; The pedal pulses are 2+ and symmetric. Radial pulses are 2+ and symmetric. (-) Murmur Pulmonary/Chest wall: decreased breath sounds Abd: Soft, (-) tenderness, (-) Distension, (-) Guarding, (-) Rebound Musculoskeletal: (-) Edema Lymph: (-) Cervical adenopathy Neuro: no focal deficits Psych: Mood and affect Normal Triage Information Reviewed: Yes Vital Signs On Initial Exam: Initial Vitals Temp Pulse Resp BP Pulse Ox 97.8 F 100 24 123/64 90 06/25/19 09:28 06/25/19 09:28 06/25/19 09:28 06/25/19 09:28 06/25/19 09:28 Vital Signs Reviewed: Yes Procedures - Sedation Patient Received Moderate/Deep Sedation with Procedure: No Diagnostics - Vital Signs Vital Signs Temp Pulse Resp BP Pulse Ox 06/25/19 10:06 77 17 120/83 96 06/25/19 10:00 85 26 94 06/25/19 09:35 101 123/64 84 06/25/19 09:34 101 78 06/25/19 09:28 97.8 F 100 24 123/64 90 - Laboratory Lab Results: Lab Results 06/25/19 06/25/19 06/25/19 Range/Units 09:48 09:48 09:48 WBC 15.4 H (3.5-10.8) 10^3/uL RBC 4.08 L (4.18-5.48) 10^6 /uL Hgb 13.6 L (14.0-18.0) g/dL Hct 41 L (42-52) % MCV 101 H (80-94) fL MCH 33 H (27-31) pg MCHC 33 (31-36) g/dL RDW 16 H (10-15) % Plt Count 276 (150-450) 10^3/uL MPV 8.2 (7.4-10.4) fL Neut % (Auto) 91.6 % Lymph % (Auto) 2.3 % [place] % (Auto) 5.5 % Eos % (Auto) 0.3 % Baso % (Auto) 0.3 % Absolute Neuts (auto) 14.1 H (1.5-7.7) 10^3/ul Absolute Lymphs (auto) 0.4 L (1.0-4.8) 10^3/ul Absolute Monos (auto) 0.8 (0-0.8) 10^3/ul Absolute Eos (auto) 0.1 (0-0.6) 10^3/ul Absolute Basos (auto) 0.0 (0-0.2) 10^3/ul Absolute Nucleated RBC 0.0 10^3/ul Nucleated RBC % 0.0 ABG pH (7.35-7.45) ABG pCO2 (35-45) mmHg ABG pO2 (80-100) mmHg ABG HCO3 (19-31) mmol/L ABG O2 Saturation (94.0-98.0) % ABG Base Excess (-2.0-2.0) mmol/L Sodium 139 (135-145) mmol/L Potassium 4.4 (3.5-5.0) mmol/L Chloride 101 (101-111) mmol/L Carbon Dioxide 30 (22-32) mmol/L Anion Gap 8 (2-11) mmol/L BUN 9 (6-24) mg/dL Creatinine 0.60 L (0.67-1.17) mg/dL Est GFR ( Amer) 159.4 (>60) Est GFR (Non-Af Amer) 131.7 (>60) BUN/Creatinine Ratio 15.0 (8-20) Glucose 100 (70-100) mg/dL Lactic Acid 1.2 (0.5-2.0) mmol/L Calcium 8.8 (8.6-10.3) mg/dL Magnesium Pending Total Bilirubin 0.70 (0.2-1.0) mg/dL AST 12 L (13-39) U/L ALT 4 L (7-52) U/L Alkaline Phosphatase 100 (34-104) U/L Troponin I 0.01 (<0.03) ng/mL B-Natriuretic Peptide (<=100) pg/mL Total Protein 6.3 L (6.4-8.9) g/dL Albumin 3.2 (3.2-5.2) g/dL Globulin 3.1 (2-4) g/dL Albumin/Globulin Ratio 1.0 (1-3) 06/25/19 06/25/19 Range/Units 09:48 09:50 WBC (3.5-10.8) 10^3/uL RBC (4.18-5.48) 10^6 /uL Hgb (14.0-18.0) g/dL Hct (42-52) % MCV (80-94) fL MCH (27-31) pg MCHC (31-36) g/dL RDW (10-15) % Plt Count (150-450) 10^3/uL MPV (7.4-10.4) fL Neut % (Auto) % Lymph % (Auto) % [place] % (Auto) % Eos % (Auto) % Baso % (Auto) % Absolute Neuts (auto) (1.5-7.7) 10^3/ul Absolute Lymphs (auto) (1.0-4.8) 10^3/ul Absolute Monos (auto) (0-0.8) 10^3/ul Absolute Eos (auto) (0-0.6) 10^3/ul Absolute Basos (auto) (0-0.2) 10^3/ul Absolute Nucleated RBC 10^3/ul Nucleated RBC % ABG pH 7.37 (7.35-7.45) ABG pCO2 52 H (35-45) mmHg ABG pO2 50 L* (80-100) mmHg ABG HCO3 27.3 (19-31) mmol/L ABG O2 Saturation 86.7 L (94.0-98.0) % ABG Base Excess 3.6 H (-2.0-2.0) mmol/L Sodium (135-145) mmol/L Potassium (3.5-5.0) mmol/L Chloride (101-111) mmol/L Carbon Dioxide (22-32) mmol/L Anion Gap (2-11) mmol/L BUN (6-24) mg/dL Creatinine (0.67-1.17) mg/dL Est GFR ( Amer) (>60) Est GFR (Non-Af Amer) (>60) BUN/Creatinine Ratio (8-20) Glucose (70-100) mg/dL Lactic Acid (0.5-2.0) mmol/L Calcium (8.6-10.3) mg/dL Magnesium Total Bilirubin (0.2-1.0) mg/dL AST (13-39) U/L ALT (7-52) U/L Alkaline Phosphatase (34-104) U/L Troponin I (<0.03) ng/mL B-Natriuretic Peptide 36 (<=100) pg/mL Total Protein (6.4-8.9) g/dL Albumin (3.2-5.2) g/dL Globulin (2-4) g/dL Albumin/Globulin Ratio (1-3) Result Diagrams: 06/25/19 09:48 06/25/19 09:48 Lab Statement: Any lab studies that have been ordered have been reviewed, and results considered in the medical decision making process. - Radiology CXR Radiology Interpretation Completed By: Radiologist Summary of Radiographic Findings: IMPRESSION: FINDINGS CONSISTENT WITH RIGHT BASILAR PNEUMONIA. has reviewed this report. - EKG 0950 Cardiac Rate: NL - rate of 98 BPM EKG Rhythm: Sinus Rhythm Ectopy: PVCs Summary of EKG Findings: EKG reveals sinus rhythm at 98 pm with no ischemic changes and multiple PVCs. has reviewed and interpreted this EKG. Complex Multi-Symp Course/Dx Course Of Treatment: 73 year old M presenting to [facility] accompanied by EMS complains of an episode of bilateral arm weakness earlier today and low O2 sat which has since resolved. Physical exam findings: Lungs: decreased breath sounds. Neuro:no focal deficits. Constitutional:pt apppears sleepy/sedated. Bloodwork results with no significant abnormalities except for H wbc, L rbc, L Hgb, L Hct, H MCV, H MCH, H RDW, H Absolute Neuts (auto), L Absolute Lymphs ( auto), H ABG pCO2, L ABG PO2 (50), L ABG O2 Sat, H ABG Base Excess, L Creatinine , L AST, L ALT. L Total Protein. An EKG shows sinus rhythm at 98 bpm with no ischemic changes and multiple PVCs. CXR shows FINDINGS CONSISTENT WITH RIGHT BASILAR PNEUMONIA, per radiologist. In the ED course, the patient was given Zithromax 500 mg/250 mL @ 250 mls/hr IVPB, Ceftriaxone sodium 1 gm in sodium chloride, 50 mls @ 100 mls/hr IVPB and magnesium sulfate 1 gm in 100 mls @ 200 mls/hr IV. We discussed patient care with at 11:30 who recommended admission.The patient will be admitted to the hospitalist. The patient is agreeable with this plan. - Diagnoses Provider Diagnoses: Pneumonia, Hypoxia - Physician Notifications Discussed Care Of Patient With: Dulce Godwin Time Discussed With Above Provider: 11:30 Instructed by Provider To: Admit As Inpatient Discharge ED - Sign-Out/Discharge Documenting (check all that apply): Patient Departure - Admit - Discharge Plan Condition: Stable Disposition: ADMITTED TO [facility] - Billing Disposition and Condition Condition: STABLE Disposition: Admitted to [facility] - Attestation Statements Document Initiated by Annyibe: Yes Documenting Scribe: Fazal Belle Provider For Whom Annyibe is Documenting (Include Credential): Valentin Campbell DO Scribe Attestation: IFazal scribed for Valentin Campbell DO on 06/25/19 at 1345. Scribe Documentation Reviewed: Yes Provider Attestation: The documentation as recorded by the Fazal martinez accurately reflects the service I personally performed and the decisions made by , Valentin Campbell DO Status of Scribe Document: Viewed
[2019-06-25] MEDS ORDERED: Magnesium Sulfate 1 GM IV* 1 GM/100 ML BAG IV ONE (10:59)
[2019-06-25] MEDS ORDERED: HYDROcodone/ACETAMIN 5-325 MG* 1 TAB PO PRN (11:59)
[2019-06-25] MEDS ORDERED: Levalbuterol HFA INHALER* 1 PUFF MDI INH PRN (11:59)
[2019-06-25 12:03] LABS: Influenza A Molecular NEGATIVE (Negative); Influenza B Molecular NEGATIVE (Negative)
[2019-06-25 13:28] LABS: Troponin I 0.03 ng/mL (<0.03)
--- NOTE | 2019-06-25 14:25 | HP ---
AMENDED REPORT NOW INCLUDES DESIGNATED COSIGNER - ESIGNED BEFORE ADJUSTMENT CC: Dr. Clark * HISTORY AND PHYSICAL: DATE OF ADMISSION: 06/25/19 PRIMARY CARE PROVIDER: Dr. Clark. ATTENDING PHYSICIAN: Dr. Godwin * (dictated by Danii Wilson NP). CHIEF COMPLAINT: 1. Weakness. 2. Hypoxia. HISTORY OF PRESENT ILLNESS: Mr. Hodge is a 73-year-old male who carries a medical history of dementia; COPD; depressive disorder; hypertension; osteoarthritis; CHF; BPH; obesity; diabetes, weight controlled; esophageal tumor , status post resection; hyponatremia; who presents to the emergency department today with concerns of weakness. When discussing events leading up to the patient's presentation to the emergency department, reports that over the past 3 to 5 months the patient has been getting progressively weak. She reports that he has been falling frequently for the past 3 to 5 months. She reports he had 3 falls yesterday. She reports one of these falls occurred at the primary care's office. The patient's reports that she takes the patient's O2 saturation, temperature, blood pressure at home. She reports that on Friday she noticed his O2 saturation was 75% on room air. Given this, she made an appointment to see Dr. Clark. The patient was seen by Dr. Clark yesterday. Patient's reports that Dr. Clark informed them that he was "not moving air." Therefore, Dr. Clark placed the patient on antibiotics in the form of azithromycin and also on steroids. In addition, she set up home oxygen at the rate of 2 L. This morning, the patient was sitting on toilet seat and called for his . reports when she went to him he could not get up. She reports he could not even raise his arms to reach his walker due to weakness. Therefore, she called 911 and the patient was brought to the emergency room. En route, it was reported that the patient's O2 saturation was in the 70s per EMS. When he arrived in the emergency department, he was placed on 6 L via OxyMask and his O2 saturation was 93%. While in the emergency department, he also had a chest x-ray and findings are consistent with right basilar pneumonia. He was also found to have leukocytosis with a white count of 15.4. Finally, the patient also had an ABG, which revealed a pO2 of 50 on room air. Given these findings and the patient's history, the hospitalists were asked to consult for admission. PAST MEDICAL HISTORY: 1. COPD. 2. Dementia. 3. Depressive disorder. 4. Hypertension. 5. Osteoarthritis. 6. CHF. 7. BPH. 8. Obesity. 9. Diabetes, weight controlled. 10. Esophageal tumor, status post resection. 11. History of hyponatremia, thought to be due to citalopram. 12. Alcohol abuse history. PAST SURGICAL HISTORY: 1. Esophageal tumor resection. 2. Appendectomy. HOME MEDICATIONS: 1. Verapamil 120 mg p.o. daily. 2. Zoloft 100 mg p.o. daily. 3. Pravastatin 40 mg p.o. at bedtime. 4. Flomax 0.4 mg p.o. daily. 5. Aspirin 81 mg. 6. Hydrocodone/acetaminophen 5/325 one tab p.o. q.12 hours p.r.n. 7. Vitamin D 2000 units p.o. daily. 8. Symbicort 80/4.5 two puffs inhalation b.i.d. 9. Trazodone 100 mg p.o. at bedtime. 10. Levalbuterol 2 puffs inhalation q.4 hours p.r.n. 11. Namenda XR 28 mg p.o. daily. 12. Incruse Ellipta 1 puff inhalation daily. 13. Gabapentin 600 mg p.o. b.i.d. 14. Albuterol nebulizer 2.5 mg inhalation t.i.d. p.r.n. 15. Wellbutrin 300 mg p.o. daily. 16. Methylprednisolone 4 to 8 mg p.o., see package. 17. Azithromycin 250 mg p.o. daily. ALLERGIES: No known drug allergies. FAMILY HISTORY: One brother had diabetes, coronary artery disease, bladder cancer. Two of his sisters have diabetes. One sister has hemochromatosis. 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 He lives with his Ramonita, who is his healthcare proxy and power of attorney recruiter. He usually ambulates with a walker. The patient is a smoker. The patient reports he smokes 1 to 2 cigarettes per day, but has smoked a lifetime of a pack per day. The patient currently does not drink, but has a history of alcohol abuse. The patient does not use drugs. REVIEW OF SYSTEMS: The patient denies fevers, anorexia, chest pain, edema, hemoptysis, shortness of breath, nausea, vomiting, diarrhea, abdominal pain, gross hematuria, dysuria, visual complaints, sore throat, arthralgias, myalgias , rashes, lesions, psychosis, anxiety. The patient is positive for cough, which he reports is chronic due to his COPD. The patient is positive for weakness, which is generalized. PHYSICAL EXAMINATION GENERAL: Mr. Hodge is a 73-year-old male who is lying in bed. Appears to be in no acute distress. Appears stated age. VITAL SIGNS: Temp 97.1, HR 87, RR 18, O2 saturation is 97% on 4 L, BP is 139/ 58. HEENT: PERRLA. EOMs intact. Sclerae without icterus. Oral mucosa is moist without lesion. Nares are patent and mucous membranes moist. NECK: No lymphadenopathy. RESPIRATORY: Symmetrical chest expansion. No accessory muscle use. Lungs are clear. The patient has very slight decrease in aeration. No rhonchi, wheezes, or rales. CV: Regular rate and rhythm. S1, S2 present. No murmurs, rubs, or gallops. ABDOMEN: Soft, nontender. Bowel sounds normoactive. EXTREMITIES: Skin is warm and smooth bilaterally. The patient has trace edema on right lower extremity. No clubbing or cyanosis. Pedal pulses 2+ bilaterally. MUSCULOSKELETAL: No pain or deformities. NEURO: The patient is drowsy, but awakes to voice. He is alert and oriented x4. Motor strength is 5/5 in the upper and lower extremities. SKIN: Grossly intact. DIAGNOSTIC STUDIES/LAB DATA: WBC 15.4, RBC 4.08, hemoglobin 13.6, hematocrit 41 , platelets 276. Sodium 139, potassium 4.4, chloride 101, BUN 9, creatinine 0.60 , magnesium 1.7, lactic 1.2. Chest x-ray: Consistent with right lower lobe pneumonia. EKG: Sinus rhythm. ASSESSMENT AND PLAN: Mr. Hodge is a 73-year-old male with a past medical history significant for chronic obstructive pulmonary disease, dementia, depressive disorder, hypertension, osteoarthritis, congestive heart failure, benign prostatic hypertrophy, obesity, diabetes, esophageal tumor, hyponatremia ; who presented to the emergency department today with weakness and hypoxia. The patient was found to have right lower lobe pneumonia. The patient will be admitted observation for: 1. Hypoxia. As mentioned above, the patient was 70% on room air en route. The patient's oxygen saturation has increased to 96% on 4 L OxyMask. We suspect this hypoxia is secondary to the right lower lobe pneumonia seen on chest x-ray. We will continue antibiotics in the form of azithromycin and ceftriaxone, which were initiated in the emergency department. I will continue steroids in the form of prednisone 50 mg p.o. daily as this was initiated yesterday by PCP. We will continue supplemental oxygen. We will continue the patient's home inhalers and nebulizers. The patient's flu was negative. I have ordered urine antigens and sputum culture. 2. Weakness. As mentioned in HPI, the patient has been progressively weak for 3 to 5 months per his . This could be due to pneumonia, but also other underlying issues including his chronic medical conditions. I have placed an occupational therapy, physical therapy, and social work consult. If weakness does not improve with treatment of pneumonia, I would recommend a repeat echo. I have not ordered an echo at this time as the patient does not appear to be fluid overloaded, EKG is unremarkable, and troponin is negative. The patient also has pneumonia seen on chest x-ray. 3. Leukocytosis. The patient has leukocytosis of 15.4. We are going to treat with antibiotics. We suspected this is due to infection and steroid treatment. 4. Sepsis: Patient met sepsis criteria with elevated WBC, trachypnea, and source (lung). Patient was rivers cultured in ED. Patient received fluids and was initiated on antibiotics. We will not give additional fluids at this time given history of CHF. 5. Hypomagnesemia. The patient has received replacement here in the emergency department. We will repeat his magnesium tomorrow. 6. Dementia. The patient will be provided with supportive care while here in the hospital. 7. Chronic obstructive pulmonary disease. We will continue the patient's home inhalers and nebulizers. The patient will be treated for chronic obstructive pulmonary disease exacerbation with steroids and antibiotics. The patient will need oxygen at discharge. 8. Major depressive disorder. We will continue the patient's home medications and provide supportive care. 9. Hypertension. We will currently continue the patient's blood pressure meds and monitor his vital signs. We will reduce blood pressure meds if needed. 10. Benign prostatic hypertrophy. We will continue the patient's Flomax. 11. History of diabetes, which is weight controlled. I will hold on initiating any fingersticks or coverage at this time as his diabetes is weight controlled. I will continue to monitor his glucose with daily BMPs. If there is concern, I would recommend initiating fingersticks and possibly hemoglobin A1c. 12. Esophageal tumor, status post resection. Defer to primary care. 13. History of hyponatremia, thought to be secondary to citalopram. We will monitor the patient's sodium with daily BMPs. 14. FEN: The patient will be placed on a regular diet. 15. Code status: reports that the patient is a DNR/DNI, but the patient reports that he is a full code. I will place the patient on full code currently and allow this to be discussed when the patient is on the medical floor. 16. DVT prophylaxis: Based on the DVT Risk Assessment, the patient is high risk. I will order subcu heparin. TIME SPENT: Approximately 65 minutes was spent on this admission, greater than half the time was spent with the patient and his obtaining my history, performing physical exam, and reviewing my plan of care. This case has been reviewed with my attending Dr. Godwin, who is in agreement with my plan of care. Reviewed by DANII WILSON, STACEY 06/25/19 at 1938 [id number]/[facility] #: [id number] [place]
[2019-06-25] MEDS: Heparin VIAL(*) 5000 UNITS/ML VIAL (FIVE THOUSAND) SUBCUT SCH ×2 (14:57→20:00)
[2019-06-25 18:08] LABS: Troponin I 0.04 ng/mL (<0.03)
[2019-06-25] MEDS: Atorvastatin* 10 MG TAB PO SCH (19:43)
[2019-06-25] MEDS: Gabapentin CAP(*) 300 MG PO SCH (19:43)
[2019-06-25] MEDS: traZODone TAB* 50 MG TAB PO SCH (19:44)
[2019-06-25] MEDS: Mometasone/Formoter 100/5 MDI INH SCH (20:04)
[2019-06-25 23:40] LABS: Troponin I 0.03 ng/mL (<0.03)
[2019-06-26 03:38] LABS: ABS Eosinophils 0.1 10^3/ul (0-0.6); ABS Lymphocytes 0.9 10^3/ul (1.0-4.8); ABS Monocytes 0.7 10^3/ul (0-0.8); ABS Neutrophils 6.8 10^3/ul (1.5-7.7); Eosinophil % 1.5 %; Hematocrit 36 % (42-52); Hemoglobin 11.8 g/dL (14.0-18.0); Lymphocyte % 10.1 %; Mean Corpuscular HGB Conc 33 g/dL (31-36); Mean Corpuscular Hemoglobin 33 pg (27-31); Mean Corpuscular Volume 102 fL (80-94); Mean Platelet Volume 8.5 fL (7.4-10.4); Platelet Count 223 10^3/uL (150-450); Red Blood Count 3.56 10^6 /uL (4.18-5.48); Red Cell Distribution Width 16 % (10-15); White Blood Count 8.5 10^3/uL (3.5-10.8)
[2019-06-26 04:23] LABS: Albumin 2.4 g/dL (3.2-5.2); Calcium 7.8 mg/dL (8.6-10.3); EGFR African American 211.2 (>60); EGFR Non-African American 174.6 (>60); Globulin 2.3 g/dL (2-4); Magnesium 1.8 mg/dL (1.9-2.7); Potassium 3.9 mmol/L (3.5-5.0); Total Bilirubin 0.6 mg/dL (0.2-1.0); Total Protein 4.7 g/dL (6.4-8.9)
[2019-06-26 04:24] LABS: Troponin I 0.02 ng/mL (<0.03)
[2019-06-26] MEDS: Heparin VIAL(*) 5000 UNITS/ML VIAL (FIVE THOUSAND) SUBCUT SCH ×3 (05:48→20:09)
[2019-06-26] MEDS: Mometasone/Formoter 100/5 MDI INH SCH ×2 (07:45→20:58)
[2019-06-26] MEDS: SPIRIVA Respimat* (tiotropium) 2.5 mcg/inh Inhaler INH SCH (07:45)
[2019-06-26] MEDS: Aspirin EC TAB* 81 MG TAB.EC PO SCH (08:11)
[2019-06-26] MEDS: Cholecalciferol TAB* 1000 UNITS PO SCH (08:11)
[2019-06-26] MEDS: Memantine XR CAP* 28 MG CAP.XR PO SCH (08:12)
[2019-06-26] MEDS: Sertraline* 100 MG TAB PO SCH (08:12)
[2019-06-26] MEDS: Verapamil SR TAB* 240 MG PO SCH (08:12)
[2019-06-26] MEDS: Tamsulosin CAP* 0.4 MG PO SCH (08:12)
[2019-06-26] MEDS: BuPROPion XL* 300 MG TAB.XL PO SCH (08:12)
[2019-06-26] MEDS: Gabapentin CAP(*) 300 MG PO SCH ×2 (08:13→20:09)
[2019-06-26] MEDS: cefTRIAXone(*) 1 GM in NS 0.9% 50 ML* 50 ML IVPB SCH (11:17)
[2019-06-26] MEDS: Azithromycin IV(*) 250 MG in NS 0.9% 250 ML* 250 ML IVPB SCH (12:12)
--- NOTE | 2019-06-26 16:22 | PN ---
Subjective Date of Service: 06/26/19 Interval History: HOSPITALIST PROGRESS NOTE Patient seen and examined at bedside. Care reviewed and d/w Gemma Boss RN. He feels better today. Dry cough still present, breathing is easier. Family History: Unchanged from Admission Social History: Unchanged from Admission Past Medical History: Unchanged from Admission Objective Active Medications: Hydrocodone Bitart/Acetaminophen ([place] 5-325 Tab*) 1 tab PO Q12H PRN PRN Reason: PAIN - MODERATE Albuterol (Ventolin 2.5 Mg/3 Ml Neb.Ella*) 2.5 mg INH TID PRN PRN Reason: SOB/WHEEZING Aspirin (Aspirin Ec Tab*) 81 mg PO DAILY [facility] Last Admin: 06/26/19 08:11 Dose: 81 mg Atorvastatin Calcium (Lipitor*) 40 mg PO BEDTIME [facility] Last Admin: 06/25/19 19:43 Dose: 40 mg Bupropion HCl (Bupropion Xl*) 300 mg PO DAILY [facility] Last Admin: 06/26/19 08:12 Dose: 300 mg Cholecalciferol (Vitamin D Tab*) 2,000 units PO DAILY [facility] Last Admin: 06/26/19 08:11 Dose: 2,000 units Gabapentin (Neurontin Cap(*)) 600 mg PO BID [facility] Last Admin: 06/26/19 08:13 Dose: 600 mg Heparin Sodium (Porcine) (Heparin Vial(*)) 5,000 units SUBCUT Q8HR [facility] Last Admin: 06/26/19 15:01 Dose: 5,000 units Azithromycin 250 mg/ Sodium (Chloride) 250 mls @ 250 mls/hr IVPB Q24H [facility] Stop: 06/30/19 10:59 Last Admin: 06/26/19 12:12 Dose: 250 mls/hr Ceftriaxone Sodium 1 gm/ (Sodium Chloride) 50 mls @ 100 mls/hr IVPB Q24H [facility] Last Admin: 06/26/19 11:17 Dose: 100 mls/hr Levalbuterol HCl (Xopenex Hfa Inhaler*) 2 puff INH Q4H PRN PRN Reason: SHORTNESS OF BREATH Memantine (Namenda Xr Cap*) 28 mg PO DAILY [facility] Last Admin: 06/26/19 08:12 Dose: 28 mg Mometasone Furoate/Formoterol Fumar (Dulera 100/5 Mdi*) 2 puff INH BID [facility] Last Admin: 06/26/19 07:45 Dose: 2 puff Prednisone (Deltasone 50 Mg Tab) 50 mg PO DAILY [facility] Stop: 06/28/19 08:59 Last Admin: 06/26/19 08:13 Dose: 50 mg Sertraline HCl (Zoloft*) 100 mg PO DAILY [facility] Last Admin: 06/26/19 08:12 Dose: 100 mg Tamsulosin HCl (Flomax Cap*) 0.4 mg PO DAILY [facility] Last Admin: 06/26/19 08:12 Dose: 0.4 mg Tiotropium [place] (Spiriva Respimat 2.5 Mcg) 2 puff INH DAILY [facility] Last Admin: 06/26/19 07:45 Dose: 2 puff Trazodone HCl (Desyrel Tab*) 100 mg PO BEDTIME [facility] Last Admin: 06/25/19 19:44 Dose: 100 mg Verapamil HCl (Calan Sr Tab*) 120 mg PO DAILY [facility] Last Admin: 06/26/19 08:12 Dose: 120 mg Vital Signs - 8 hr 06/26/19 06/26/19 11:15 11:17 Temperature 98.4 F Pulse Rate 81 Respiratory 16 16 Rate Blood Pressure 107/49 (mmHg) O2 Sat by Pulse 97 Oximetry Oxygen Devices in Use Now: Nasal Cannula Appearance: Pleasant elderly gentleman sitting up in bed in NAD Eyes: No Scleral Icterus Ears/Nose/Mouth/Throat: Mucous Membranes Moist Neck: Trachea Midline Respiratory: Symmetrical Chest Expansion and Respiratory Effort, - - BS+ bilaterally with scattered wheezes Cardiovascular: RRR - Normal S1 and S2 Abdominal: NL Sounds; No Tenderness; No Distention Neurological: Alert and Oriented x 3, NL Muscle Strength and Tone Result Diagrams: 06/26/19 03:32 06/26/19 03:32 Microbiology and Other Data: Microbiology 06/25/19 11:00 Gram Stain - Final Sputum Expectorated 06/25/19 10:27 Aerobic Blood Culture - Preliminary Blood Venous No Growth Day 1 Anaerobic Blood Culture - Preliminary No Growth Day 1 06/25/19 10:16 Aerobic Blood Culture - Preliminary Blood Venous No Growth Day 1 Anaerobic Blood Culture - Preliminary No Growth Day 1 06/25/19 16:00 Legionella Urinary Antigen - Final Urine Negative Legionella Antigen Streptococcus pneumoniae Ag Screen - Final Negative S. pneumo Antigen Assess/Plan/Problems-Billing Assessment: Mr Hodge is a 73yo M with PMH of COPD, dementia, depression, HTN, DJD, type 2 DM , who presented to ED with c/o weakness, found to have pneumonia. - Patient Problems (1) Sepsis Comment: - Presentation compatible with sepsis with leukocytosis and tachypnea. Source is pneumonia. (2) Pneumonia Comment: - CxR shows RLL infiltrate. - Blood cultures show no growth so far, sputum is pending, Legionella and pneumococcal Ag as well as Flu are negative. - Continue Ceftriaxone and Zithromax. (3) Acute hypoxemic respiratory failure Comment: - Secondary to pneumonia. - Continue supplemental O2. (4) COPD exacerbation Comment: - Secondary to pneumonia. - Continue steroids and bronchodilators. (5) Physical deconditioning Comment: - PT evaluation. (6) DVT prophylaxis Comment: - SQ heparin. Status and Disposition: Inpatient.
[2019-06-26] MEDS ORDERED: Magnesium Sulfate 2 GM IV* 2 GM/50 ML BAG IVPB ONE (16:42)
[2019-06-26] MEDS: Atorvastatin* 10 MG TAB PO SCH (20:09)
[2019-06-26] MEDS: traZODone TAB* 50 MG TAB PO SCH (20:09)
[2019-06-26] MEDS: Albuterol 2.5 MG/3 ML NEB.SOL* (0.083%) INH PRN (20:57)
[2019-06-27] MEDS: Heparin VIAL(*) 5000 UNITS/ML VIAL (FIVE THOUSAND) SUBCUT SCH ×3 (05:42→20:06)
[2019-06-27 05:53] LABS: ABS Lymphocytes 0.7 10^3/ul (1.0-4.8); ABS Monocytes 0.7 10^3/ul (0-0.8); ABS Neutrophils 7.4 10^3/ul (1.5-7.7); Eosinophil % 0.3 %; Hematocrit 32 % (42-52); Hemoglobin 11.1 g/dL (14.0-18.0); Lymphocyte % 8.2 %; Mean Corpuscular HGB Conc 34 g/dL (31-36); Mean Corpuscular Hemoglobin 34 pg (27-31); Mean Corpuscular Volume 99 fL (80-94); Mean Platelet Volume 8.5 fL (7.4-10.4); Nucleated Red Blood Cells % 0.1; Platelet Count 227 10^3/uL (150-450); Red Blood Count 3.26 10^6 /uL (4.18-5.48); Red Cell Distribution Width 15 % (10-15); White Blood Count 8.8 10^3/uL (3.5-10.8)
[2019-06-27 06:08] LABS: BUN/Creatinine Ratio 22.5 (8-20); Calcium 7.7 mg/dL (8.6-10.3); EGFR African American 254.4 (>60); EGFR Non-African American 210.3 (>60); Magnesium 1.8 mg/dL (1.9-2.7); Potassium 3.7 mmol/L (3.5-5.0)
[2019-06-27] MEDS: SPIRIVA Respimat* (tiotropium) 2.5 mcg/inh Inhaler INH SCH (08:58)
[2019-06-27] MEDS: Mometasone/Formoter 100/5 MDI INH SCH ×2 (08:58→21:37)
[2019-06-27] MEDS: Verapamil SR TAB* 240 MG PO SCH (09:19)
[2019-06-27] MEDS: Gabapentin CAP(*) 300 MG PO SCH ×2 (09:20→20:06)
[2019-06-27] MEDS: Sertraline* 100 MG TAB PO SCH (09:20)
[2019-06-27] MEDS: Memantine XR CAP* 28 MG CAP.XR PO SCH (09:20)
[2019-06-27] MEDS: Aspirin EC TAB* 81 MG TAB.EC PO SCH (09:20)
[2019-06-27] MEDS: Tamsulosin CAP* 0.4 MG PO SCH (09:20)
[2019-06-27] MEDS: Cholecalciferol TAB* 1000 UNITS PO SCH (09:20)
[2019-06-27] MEDS: BuPROPion XL* 300 MG TAB.XL PO SCH (09:20)
[2019-06-27] MEDS: cefTRIAXone(*) 1 GM in NS 0.9% 50 ML* 50 ML IVPB SCH (10:42)
[2019-06-27] MEDS ORDERED: DOXYcycline CAP(*) 100 MG PO ONE (11:12)
[2019-06-27] MEDS: Azithromycin IV(*) 250 MG in NS 0.9% 250 ML* 250 ML IVPB SCH (12:29)
--- NOTE | 2019-06-27 15:03 | PN ---
Subjective Date of Service: 06/27/19 Interval History: HOSPITALIST PROGRESS NOTE Patient seen and examined at bedside. Care reviewed and d/w Gemma Boss RN. He is goods spirits today, feels his breathing is better. As per RN, patient was found to have a large tick on his back. Family History: Unchanged from Admission Social History: Unchanged from Admission Past Medical History: Unchanged from Admission Objective Active Medications: Hydrocodone Bitart/Acetaminophen ([place] 5-325 Tab*) 1 tab PO Q12H PRN PRN Reason: PAIN - MODERATE Albuterol (Ventolin 2.5 Mg/3 Ml Neb.Ella*) 2.5 mg INH TID PRN PRN Reason: SOB/WHEEZING Last Admin: 06/26/19 20:57 Dose: 2.5 mg Aspirin (Aspirin Ec Tab*) 81 mg PO DAILY [facility] Last Admin: 06/27/19 09:20 Dose: 81 mg Atorvastatin Calcium (Lipitor*) 40 mg PO BEDTIME [facility] Last Admin: 06/26/19 20:09 Dose: 40 mg Bupropion HCl (Bupropion Xl*) 300 mg PO DAILY [facility] Last Admin: 06/27/19 09:20 Dose: 300 mg Cholecalciferol (Vitamin D Tab*) 2,000 units PO DAILY [facility] Last Admin: 06/27/19 09:20 Dose: 2,000 units Doxycycline Hyclate (Vibramycin Cap(*)) 100 mg PO BID [facility] Gabapentin (Neurontin Cap(*)) 600 mg PO BID [facility] Last Admin: 06/27/19 09:20 Dose: 600 mg Heparin Sodium (Porcine) (Heparin Vial(*)) 5,000 units SUBCUT Q8HR [facility] Last Admin: 06/27/19 14:37 Dose: 5,000 units Ceftriaxone Sodium 1 gm/ (Sodium Chloride) 50 mls @ 100 mls/hr IVPB Q24H [facility] Last Admin: 06/27/19 10:42 Dose: 100 mls/hr Levalbuterol HCl (Xopenex Hfa Inhaler*) 2 puff INH Q4H PRN PRN Reason: SHORTNESS OF BREATH Last Admin: 06/26/19 17:53 Dose: 2 puff Memantine (Namenda Xr Cap*) 28 mg PO DAILY [facility] Last Admin: 06/27/19 09:20 Dose: 28 mg Mometasone Furoate/Formoterol Fumar (Dulera 100/5 Mdi*) 2 puff INH BID [facility] Last Admin: 06/27/19 08:58 Dose: 2 puff Prednisone (Deltasone 50 Mg Tab) 50 mg PO DAILY [facility] Stop: 06/28/19 08:59 Last Admin: 06/27/19 09:20 Dose: 50 mg Sertraline HCl (Zoloft*) 100 mg PO DAILY [facility] Last Admin: 06/27/19 09:20 Dose: 100 mg Tamsulosin HCl (Flomax Cap*) 0.4 mg PO DAILY [facility] Last Admin: 06/27/19 09:20 Dose: 0.4 mg Tiotropium [place] (Spiriva Respimat 2.5 Mcg) 2 puff INH DAILY [facility] Last Admin: 06/27/19 08:58 Dose: 2 puff Trazodone HCl (Desyrel Tab*) 100 mg PO BEDTIME [facility] Last Admin: 06/26/19 20:09 Dose: 100 mg Verapamil HCl (Calan Sr Tab*) 120 mg PO DAILY [facility] Last Admin: 06/27/19 09:19 Dose: 120 mg Vital Signs - 8 hr 06/27/19 06/27/19 06/27/19 07:15 08:00 09:01 Temperature 97.7 F Pulse Rate 73 81 Respiratory 16 18 18 Rate Blood Pressure 129/67 (mmHg) O2 Sat by Pulse 100 95 Oximetry 06/27/19 06/27/19 06/27/19 09:20 11:15 12:36 Temperature 97.3 F Pulse Rate 63 Respiratory 18 18 18 Rate Blood Pressure 130/48 (mmHg) O2 Sat by Pulse 99 Oximetry Oxygen Devices in Use Now: Nasal Cannula Appearance: Pleasant elderly gentleman sitting up in bed in NAD Eyes: No Scleral Icterus Ears/Nose/Mouth/Throat: Mucous Membranes Moist Neck: Trachea Midline Respiratory: Symmetrical Chest Expansion and Respiratory Effort, - - BS+ bilaterally with scattered wheezes Cardiovascular: RRR - Nromal S1 and S2 Neurological: Alert and Oriented x 3, NL Muscle Strength and Tone Result Diagrams: 06/27/19 05:23 06/27/19 05:23 Microbiology and Other Data: Microbiology 06/25/19 11:00 Gram Stain - Final Sputum Expectorated 06/25/19 10:27 Aerobic Blood Culture - Preliminary Blood Venous No Growth Day 1 Anaerobic Blood Culture - Preliminary No Growth Day 1 06/25/19 10:16 Aerobic Blood Culture - Preliminary Blood Venous No Growth Day 1 Anaerobic Blood Culture - Preliminary No Growth Day 1 06/25/19 16:00 Legionella Urinary Antigen - Final Urine Negative Legionella Antigen Streptococcus pneumoniae Ag Screen - Final Negative S. pneumo Antigen Assess/Plan/Problems-Billing Assessment: Mr Hodge is a 73yo M with PMH of COPD, dementia, depression, HTN, DJD, type 2 DM , who presented to ED with c/o weakness, found to have pneumonia. - Patient Problems (1) Sepsis Comment: - Presentation compatible with sepsis with leukocytosis and tachypnea. Source is pneumonia. (2) Pneumonia Comment: - CxR shows RLL infiltrate. - Blood cultures show no growth so far, sputum is pending, Legionella and pneumococcal Ag as well as Flu are negative. - Continue Ceftriaxone and change Zithromax to Doxycycline. (3) Acute hypoxemic respiratory failure Comment: - Secondary to pneumonia. - Continue supplemental O2. (4) COPD exacerbation Comment: - Secondary to pneumonia. - Continue steroids and bronchodilators. (5) Arrhythmia Comment: - Patient with more frequent PVCs - potassium is normal, magnesium 1.8 - will replete. - Azithromycin may increase arrhythmias, so will d/c it and start Doxycycline ( that will also cover Lyme prophylaxis). (6) Tick bite Comment: - Tick was removed, there is no rash, and he received Doxycycline prophylaxis. - D/w ID - no indication for serology or tick examination. (7) Physical deconditioning Comment: - PT evaluation. (8) DVT prophylaxis Comment: - SQ heparin. Status and Disposition: Inpatient.
[2019-06-27] MEDS ORDERED: Magnesium Sulfate 2 GM IV* 2 GM/50 ML BAG IVPB ONE (15:18)
[2019-06-27] MEDS: Magnesium Oxide TAB* 400 MG PO SCH (16:50)
[2019-06-27] MEDS: Atorvastatin* 10 MG TAB PO SCH (20:05)
[2019-06-27] MEDS: traZODone TAB* 50 MG TAB PO SCH (20:05)
[2019-06-27] MEDS: DOXYcycline CAP(*) 100 MG PO SCH (20:06)
[2019-06-28] MEDS: Heparin VIAL(*) 5000 UNITS/ML VIAL (FIVE THOUSAND) SUBCUT SCH ×3 (05:37→20:55)
[2019-06-28 08:05] LABS: BUN/Creatinine Ratio 13.5 (8-20); Calcium 8.3 mg/dL (8.6-10.3); EGFR African American 278.4 (>60); EGFR Non-African American 230.1 (>60); Magnesium 1.9 mg/dL (1.9-2.7); Potassium 3.8 mmol/L (3.5-5.0)
[2019-06-28] MEDS: Gabapentin CAP(*) 300 MG PO SCH ×2 (09:21→20:53)
[2019-06-28] MEDS: Verapamil SR TAB* 240 MG PO SCH (09:21)
[2019-06-28] MEDS: Cholecalciferol TAB* 1000 UNITS PO SCH (09:21)
[2019-06-28] MEDS: DOXYcycline CAP(*) 100 MG PO SCH (09:21)
[2019-06-28] MEDS: Aspirin EC TAB* 81 MG TAB.EC PO SCH (09:21)
[2019-06-28] MEDS: Sertraline* 100 MG TAB PO SCH (09:22)
[2019-06-28] MEDS: Tamsulosin CAP* 0.4 MG PO SCH (09:22)
[2019-06-28] MEDS: Memantine XR CAP* 28 MG CAP.XR PO SCH (09:22)
[2019-06-28] MEDS: BuPROPion XL* 300 MG TAB.XL PO SCH (09:22)
[2019-06-28] MEDS: SPIRIVA Respimat* (tiotropium) 2.5 mcg/inh Inhaler INH SCH (10:32)
[2019-06-28] MEDS: Mometasone/Formoter 100/5 MDI INH SCH ×2 (10:33→19:27)
--- NOTE | 2019-06-28 10:38 | ECHO ---
*[facility]* [place] [address] Fax #: [phone] Transthoracic Echocardiogram Patient: Octavio Hodge : 1945 Study Date: 06/28/2019 Age: 73 Gender: M HR: 85 bpm Height: 73 in /185.4 cm BSA: 2.06 m^2 Weight: 179.6 lb /81.6 kg BMI: 23.7 kg/m^2 *Preparatory Technician: Renuka Edwards [facility] *Referring Physician: * Tracee CasonReading Physician: * Nic Hinton MD Indications: Abnormal EKG. History: Chronic obstructive pulmonary disease. Risk factors: Hypertension. Diabetes mellitus. Conclusions Summary: - Left ventricle: The cavity size is mildly reduced. Wall thickness is mildly increased. Systolic function is normal. The estimated ejection fraction is 60-65%. Wall motion is normal; there are no regional wall motion abnormalities. - Right ventricle: The cavity size is normal. Systolic function is normal. - Left atrium: The atrium is mildly dilated. - Aortic valve: The findings are consistent with very mild stenosis. - Pulmonary arteries: Systolic pressure can not be accurately estimated. Recommendations: Compared to prior study from 11/2018, borderline very mild noted. Study data: Transthoracic echocardiogram. Procedure: Transthoracic echocardiography was performed. Image quality was good. Complete 2D, spectral Doppler, and color flow Doppler. Location: Bedside. Patient status: Inpatient. Patient room number: 411. Rhythm: Normal sinus rhythm with PVC's. Findings Left ventricle: The cavity size is mildly reduced. Wall thickness is mildly increased. Systolic function is normal. The estimated ejection fraction is 60-65%. Wall motion is normal; there are no regional wall motion abnormalities. Doppler parameters are consistent with abnormal left ventricular relaxation (grade 1 diastolic dysfunction). Right ventricle: The cavity size is normal. Systolic function is normal. Left atrium: The atrium is mildly dilated. Right atrium: The atrium is normal in size. Mitral valve: The Mitral valve annulus appears calcified. The leaflets are mildly thickened. There is no evidence of stenosis. There is trace regurgitation. Aortic valve: The annulus is mildly calcified. The valve is trileaflet. The leaflets are mildly thickened. The findings are consistent with very mild stenosis. There is trace regurgitation. Tricuspid valve: The leaflets are normal thickness. There is no evidence of stenosis. There is no significant regurgitation. Pulmonic valve: The leaflets are normal thickness. There is no evidence of stenosis. There is no significant regurgitation. Aorta: The aortic root appears normal. The aortic arch appears normal. Pericardium: There is no significant pericardial effusion. Pulmonary arteries: Systolic pressure can not be accurately estimated. Systemic veins: Inferior vena cava: The vessel is dilated. There is (< 50%) respiratory change in the IVC dimension. Measurements Left ventricle Value Ref Right atrium continued Value Ref HARINDER, LAX (L) 3.9 cm 4.2 - 5.8 ML dim, ES, A4C 3.8 cm 2.6 - 4.4 ESD, LAX 2.6 cm 2.5 - 4.0 Estimated RAP 8 mm Hg --------- FS, LAX 33 % 25 - 43 PW, ED, LAX (H) 1.2 cm 0.6 - 1.0 Aortic valve Value Ref E', lat nile, TDI (L) 4.7 cm/sec >=10.0 Nile diam, ED 2.0 cm --- ------ E/e', lat nile, 27 Peak v, S 2 m/sec ------ --- TDI VTI, S 40.0 cm --------- E', med nile, TDI (L) 5.6 cm/sec >=7.0 Mean grad, S 8.0 mm Hg --- ------ E/e', med nile, 22 Peak grad, S 16.0 mm Hg ------ --- TDI LVOT/AV, VTI ratio 0.6 --------- E', avg, TDI 5.2 cm/sec LILIANA, VTI 1.70 cm^2 ------ --- E/e', avg, TDI (H) 24 <=14 LILIANA, Vmax 1.90 cm^2 --- ------ LVOT Value Ref Mitral valve Value Ref Diam, S 2.00 cm Peak E 1.25 m/sec --------- Area 3.1 cm^2 Peak A 1.54 m/sec --------- Peak sunny, S 1.2 m/sec Decel time 158 ms --------- VTI, S 22.0 cm PHT 72 ms --------- Peak grad, S 6 mm Hg Mean grad, D 5.0 mm Hg --------- Mean grad, S 3 mm Hg Peak grad, D 9.0 mm Hg --------- SV 71 ml Peak E/A ratio 0.8 --------- MVA 2.0 cm^2 --------- Ventricular septum Value Ref MVA, PHT 3.1 cm^2 --------- IVS, ED (H) 1.3 cm 0.6 - 1.0 Pulmonic valve Value Ref Right ventricle Value Ref Peak v, S 0.65 m/sec --------- HARINDER, LAX 2.9 cm Peak grad, S 2.0 mm Hg --------- HARINDER minor ax, (H) 3.9 cm 1.9 - 3.5 A4C mid Aortic root Value Ref Root diam 3.5 cm <4.2 Left atrium Value Ref Root max diam, ED 3.5 cm <4.2 AP dim, ES (H) 4.40 cm 3.00 - 4.00 Inferior vena cava Value Ref ML dim, A4C 4.3 cm Diam 2.2 cm --------- SI dim, A4C 6.2 cm Vol/bsa, ES, A/L 33 ml/m^2 16 - 34 Right atrium Value Ref SI dim, ES 4.8 cm 3.4 - 5.3 Legend: (L) and (H) marychuy values outside specified reference range. Prepared and electronically signed by Nic Hinton MD 06/28/2019 10:38
[2019-06-28] MEDS: Magnesium Oxide TAB* 400 MG PO SCH (11:54)
[2019-06-28] MEDS: cefTRIAXone(*) 1 GM in NS 0.9% 50 ML* 50 ML IVPB SCH (11:54)
--- NOTE | 2019-06-28 12:09 | PN ---
Subjective Date of Service: 06/28/19 Interval History: Cough better, not productive. Appetite OK. Walks only with help here, and only very little. Family History: Unchanged from Admission Social History: Unchanged from Admission Past Medical History: Unchanged from Admission Objective Active Medications: Hydrocodone Bitart/Acetaminophen ([place] 5-325 Tab*) 1 tab PO Q12H PRN PRN Reason: PAIN - MODERATE Albuterol (Ventolin 2.5 Mg/3 Ml Neb.Ella*) 2.5 mg INH TID PRN PRN Reason: SOB/WHEEZING Last Admin: 06/26/19 20:57 Dose: 2.5 mg Aspirin (Aspirin Ec Tab*) 81 mg PO DAILY [facility] Last Admin: 06/28/19 09:21 Dose: 81 mg Atorvastatin Calcium (Lipitor*) 40 mg PO BEDTIME [facility] Last Admin: 06/27/19 20:05 Dose: 40 mg Bupropion HCl (Bupropion Xl*) 300 mg PO DAILY [facility] Last Admin: 06/28/19 09:22 Dose: 300 mg Cholecalciferol (Vitamin D Tab*) 2,000 units PO DAILY [facility] Last Admin: 06/28/19 09:21 Dose: 2,000 units Gabapentin (Neurontin Cap(*)) 600 mg PO BID [facility] Last Admin: 06/28/19 09:21 Dose: 600 mg Heparin Sodium (Porcine) (Heparin Vial(*)) 5,000 units SUBCUT Q8HR [facility] Last Admin: 06/28/19 05:37 Dose: 5,000 units Ceftriaxone Sodium 1 gm/ (Sodium Chloride) 50 mls @ 100 mls/hr IVPB Q24H [facility] Last Admin: 06/28/19 11:54 Dose: 100 mls/hr Levalbuterol HCl (Xopenex Hfa Inhaler*) 2 puff INH Q4H PRN PRN Reason: SHORTNESS OF BREATH Last Admin: 06/26/19 17:53 Dose: 2 puff Magnesium Oxide (Magox 400 Tab*) 800 mg PO DAILY@1100 [facility] Last Admin: 06/28/19 11:54 Dose: 800 mg Memantine (Namenda Xr Cap*) 28 mg PO DAILY [facility] Last Admin: 06/28/19 09:22 Dose: 28 mg Mometasone Furoate/Formoterol Fumar (Dulera 100/5 Mdi*) 2 puff INH BID [facility] Last Admin: 06/28/19 10:33 Dose: 2 puff Sertraline HCl (Zoloft*) 100 mg PO DAILY [facility] Last Admin: 06/28/19 09:22 Dose: 100 mg Tamsulosin HCl (Flomax Cap*) 0.4 mg PO DAILY [facility] Last Admin: 06/28/19 09:22 Dose: 0.4 mg Tiotropium [place] (Spiriva Respimat 2.5 Mcg) 2 puff INH DAILY [facility] Last Admin: 06/28/19 10:32 Dose: 2 puff Trazodone HCl (Desyrel Tab*) 100 mg PO BEDTIME [facility] Last Admin: 06/27/19 20:05 Dose: 100 mg Verapamil HCl (Calan Sr Tab*) 120 mg PO DAILY [facility] Last Admin: 06/28/19 09:21 Dose: 120 mg Vital Signs - 8 hr 06/28/19 06/28/19 06/28/19 07:15 08:00 09:21 Temperature 98.3 F Pulse Rate 84 Respiratory 20 20 20 Rate Blood Pressure 142/81 (mmHg) O2 Sat by Pulse 97 Oximetry 06/28/19 06/28/19 11:15 11:20 Temperature 98.2 F Pulse Rate 82 Respiratory 18 18 Rate Blood Pressure 122/72 (mmHg) O2 Sat by Pulse 99 Oximetry Oxygen Devices in Use Now: Nasal Cannula Appearance: Alert, partly up in bed. In good spirits. Looks comfortable. Ears/Nose/Mouth/Throat: Clear Oropharnyx, Mucous Membranes Moist Neck: NL Appearance and Movements; NL JVP, No Thyroid Enlargement, Masses Respiratory: Symmetrical Chest Expansion and Respiratory Effort, Clear to Auscultation, Clear to Percussion Cardiovascular: NL Sounds; No Murmurs; No JVD, RRR, No Edema, - Extremities: No Edema, No Clubbing, Cyanosis, - Skin: No Rash or Ulcers, No Nodules or Sclerosis, - Neurological: Alert and Oriented x 3, NL Sensation Result Diagrams: 06/27/19 05:23 06/28/19 07:11 Additional Lab and Data: Lab Results 06/25/19 06/25/19 06/25/19 Range/Units 09:48 09:48 09:48 WBC 15.4 H (3.5-10.8) 10^3/uL RBC 4.08 L (4.18-5.48) 10^6 /uL Hgb 13.6 L (14.0-18.0) g/dL Hct 41 L (42-52) % MCV 101 H (80-94) fL MCH 33 H (27-31) pg MCHC 33 (31-36) g/dL RDW 16 H (10-15) % Plt Count 276 (150-450) 10^3/uL MPV 8.2 (7.4-10.4) fL Neut % (Auto) 91.6 % Lymph % (Auto) 2.3 % [place] % (Auto) 5.5 % Eos % (Auto) 0.3 % Baso % (Auto) 0.3 % Absolute Neuts (auto) 14.1 H (1.5-7.7) 10^3/ul Absolute Lymphs (auto) 0.4 L (1.0-4.8) 10^3/ul Absolute Monos (auto) 0.8 (0-0.8) 10^3/ul Absolute Eos (auto) 0.1 (0-0.6) 10^3/ul Absolute Basos (auto) 0.0 (0-0.2) 10^3/ul Absolute Nucleated RBC 0.0 10^3/ul Nucleated RBC % 0.0 ABG pH (7.35-7.45) ABG pCO2 (35-45) mmHg ABG pO2 (80-100) mmHg ABG HCO3 (19-31) mmol/L ABG O2 Saturation (94.0-98.0) % ABG Base Excess (-2.0-2.0) mmol/L Sodium 139 (135-145) mmol/L Potassium 4.4 (3.5-5.0) mmol/L Chloride 101 (101-111) mmol/L Carbon Dioxide 30 (22-32) mmol/L Anion Gap 8 (2-11) mmol/L BUN 9 (6-24) mg/dL Creatinine 0.60 L (0.67-1.17) mg/dL Est GFR ( Amer) 159.4 (>60) Est GFR (Non-Af Amer) 131.7 (>60) BUN/Creatinine Ratio 15.0 (8-20) Glucose 100 (70-100) mg/dL Lactic Acid 1.2 (0.5-2.0) mmol/L Calcium 8.8 (8.6-10.3) mg/dL Magnesium Pending Total Bilirubin 0.70 (0.2-1.0) mg/dL AST 12 L (13-39) U/L ALT 4 L (7-52) U/L Alkaline Phosphatase 100 (34-104) U/L Troponin I 0.01 (<0.03) ng/mL B-Natriuretic Peptide (<=100) pg/mL Total Protein 6.3 L (6.4-8.9) g/dL Albumin 3.2 (3.2-5.2) g/dL Globulin 3.1 (2-4) g/dL Albumin/Globulin Ratio 1.0 (1-3) 06/25/19 06/25/19 Range/Units 09:48 09:50 WBC (3.5-10.8) 10^3/uL RBC (4.18-5.48) 10^6 /uL Hgb (14.0-18.0) g/dL Hct (42-52) % MCV (80-94) fL MCH (27-31) pg MCHC (31-36) g/dL RDW (10-15) % Plt Count (150-450) 10^3/uL MPV (7.4-10.4) fL Neut % (Auto) % Lymph % (Auto) % [place] % (Auto) % Eos % (Auto) % Baso % (Auto) % Absolute Neuts (auto) (1.5-7.7) 10^3/ul Absolute Lymphs (auto) (1.0-4.8) 10^3/ul Absolute Monos (auto) (0-0.8) 10^3/ul Absolute Eos (auto) (0-0.6) 10^3/ul Absolute Basos (auto) (0-0.2) 10^3/ul Absolute Nucleated RBC 10^3/ul Nucleated RBC % ABG pH 7.37 (7.35-7.45) ABG pCO2 52 H (35-45) mmHg ABG pO2 50 L* (80-100) mmHg ABG HCO3 27.3 (19-31) mmol/L ABG O2 Saturation 86.7 L (94.0-98.0) % ABG Base Excess 3.6 H (-2.0-2.0) mmol/L Sodium (135-145) mmol/L Potassium (3.5-5.0) mmol/L Chloride (101-111) mmol/L Carbon Dioxide (22-32) mmol/L Anion Gap (2-11) mmol/L BUN (6-24) mg/dL Creatinine (0.67-1.17) mg/dL Est GFR ( Amer) (>60) Est GFR (Non-Af Amer) (>60) BUN/Creatinine Ratio (8-20) Glucose (70-100) mg/dL Lactic Acid (0.5-2.0) mmol/L Calcium (8.6-10.3) mg/dL Magnesium Total Bilirubin (0.2-1.0) mg/dL AST (13-39) U/L ALT (7-52) U/L Alkaline Phosphatase (34-104) U/L Troponin I (<0.03) ng/mL B-Natriuretic Peptide 36 (<=100) pg/mL Total Protein (6.4-8.9) g/dL Albumin (3.2-5.2) g/dL Globulin (2-4) g/dL Albumin/Globulin Ratio (1-3) Microbiology and Other Data: Microbiology 06/25/19 11:00 Gram Stain - Final Sputum Expectorated 06/25/19 10:27 Aerobic Blood Culture - Preliminary Blood Venous No Growth Day 1 Anaerobic Blood Culture - Preliminary No Growth Day 1 06/25/19 10:16 Aerobic Blood Culture - Preliminary Blood Venous No Growth Day 1 Anaerobic Blood Culture - Preliminary No Growth Day 1 06/25/19 16:00 Legionella Urinary Antigen - Final Urine Negative Legionella Antigen Streptococcus pneumoniae Ag Screen - Final Negative S. pneumo Antigen Assess/Plan/Problems-Billing Assessment: Mr Hodge is a 73yo M with PMH of COPD, dementia, depression, HTN, DJD, type 2 DM , who presented to ED with c/o weakness, found to have pneumonia. - Patient Problems (1) Pneumonia Current Visit: Yes Status: Acute Code(s): J18.9 - PNEUMONIA, UNSPECIFIED ORGANISM SNOMED Code(s): 404019499 Comment: - CxR shows RLL infiltrate. O2 sat 87-88% on RA by me 06/28/19. - Blood cultures show no growth so far, sputum is pending, Legionella and pneumococcal Ag as well as Flu are negative. - Continue Ceftriaxone for total 7 days. (2) Tick bite Current Visit: Yes Status: Acute Code(s): W57.XXXA - BIT/STUNG BY NONVENOM INSECT & OTH NONVENOM ARTHROPODS, INIT SNOMED Code(s): 29379347 Comment: - Tick was removed, there is no rash, and he received 1 dose of Doxycycline. - D/w ID - no indication for serology or tick examination or further doxy. (3) Tobacco abuse Current Visit: No Status: Acute Code(s): Z72.0 - TOBACCO USE SNOMED Code(s ): 507980712 Comment: - Pt declined nicotine replacement, cessation advised. does not smoke. (4) Physical deconditioning Current Visit: Yes Status: Acute Code(s): R53.81 - OTHER MALAISE SNOMED Code(s): 84436508181099 Comment: - PT evaluation appreciated. Pt insists he would be able to walk at home. I will ask his to come in and help evaluate his needs at home. Status and Disposition: Inpatient.
[2019-06-28] MEDS: Atorvastatin* 10 MG TAB PO SCH (20:53)
[2019-06-28] MEDS: traZODone TAB* 50 MG TAB PO SCH (20:53)
[2019-06-28] MEDS: Albuterol 2.5 MG/3 ML NEB.SOL* (0.083%) INH PRN (21:16)
[2019-06-29] MEDS: Heparin VIAL(*) 5000 UNITS/ML VIAL (FIVE THOUSAND) SUBCUT SCH ×3 (06:07→23:03)
[2019-06-29] MEDS: SPIRIVA Respimat* (tiotropium) 2.5 mcg/inh Inhaler INH SCH (07:21)
[2019-06-29] MEDS: Mometasone/Formoter 100/5 MDI INH SCH ×2 (07:21→18:56)
[2019-06-29] MEDS: Aspirin EC TAB* 81 MG TAB.EC PO SCH (09:29)
[2019-06-29] MEDS: Cholecalciferol TAB* 1000 UNITS PO SCH (09:29)
[2019-06-29] MEDS: Gabapentin CAP(*) 300 MG PO SCH ×2 (09:29→20:55)
[2019-06-29] MEDS: BuPROPion XL* 300 MG TAB.XL PO SCH (09:30)
[2019-06-29] MEDS: Verapamil SR TAB* 240 MG PO SCH (09:30)
[2019-06-29] MEDS: Memantine XR CAP* 28 MG CAP.XR PO SCH (09:30)
[2019-06-29] MEDS: Tamsulosin CAP* 0.4 MG PO SCH (09:30)
[2019-06-29] MEDS: Sertraline* 100 MG TAB PO SCH (09:30)
[2019-06-29] MEDS: cefTRIAXone(*) 1 GM in NS 0.9% 50 ML* 50 ML IVPB SCH (09:35)
[2019-06-29] MEDS: Magnesium Oxide TAB* 400 MG PO SCH (10:58)
--- NOTE | 2019-06-29 11:48 | PN ---
Subjective Date of Service: 06/29/19 Interval History: No c/o, states cough and dyspnea are gone. Family History: Unchanged from Admission Social History: Unchanged from Admission Past Medical History: Unchanged from Admission Objective Active Medications: Hydrocodone Bitart/Acetaminophen ([place] 5-325 Tab*) 1 tab PO Q12H PRN PRN Reason: PAIN - MODERATE Albuterol (Ventolin 2.5 Mg/3 Ml Neb.Ella*) 2.5 mg INH TID PRN PRN Reason: SOB/WHEEZING Last Admin: 06/28/19 21:16 Dose: 2.5 mg Aspirin (Aspirin Ec Tab*) 81 mg PO DAILY [facility] Last Admin: 06/29/19 09:29 Dose: 81 mg Atorvastatin Calcium (Lipitor*) 40 mg PO BEDTIME [facility] Last Admin: 06/28/19 20:53 Dose: 40 mg Bupropion HCl (Bupropion Xl*) 300 mg PO DAILY [facility] Last Admin: 06/29/19 09:30 Dose: 300 mg Cholecalciferol (Vitamin D Tab*) 2,000 units PO DAILY [facility] Last Admin: 06/29/19 09:29 Dose: 2,000 units Gabapentin (Neurontin Cap(*)) 600 mg PO BID [facility] Last Admin: 06/29/19 09:29 Dose: 600 mg Heparin Sodium (Porcine) (Heparin Vial(*)) 5,000 units SUBCUT Q8HR [facility] Last Admin: 06/29/19 06:07 Dose: 5,000 units Ceftriaxone Sodium 1 gm/ (Sodium Chloride) 50 mls @ 100 mls/hr IVPB Q24H [facility] Last Admin: 06/29/19 09:35 Dose: 100 mls/hr Levalbuterol HCl (Xopenex Hfa Inhaler*) 2 puff INH Q4H PRN PRN Reason: SHORTNESS OF BREATH Last Admin: 06/26/19 17:53 Dose: 2 puff Magnesium Oxide (Magox 400 Tab*) 800 mg PO DAILY@1100 [facility] Last Admin: 06/29/19 10:58 Dose: 800 mg Memantine (Namenda Xr Cap*) 28 mg PO DAILY [facility] Last Admin: 06/29/19 09:30 Dose: 28 mg Mometasone Furoate/Formoterol Fumar (Dulera 100/5 Mdi*) 2 puff INH BID [facility] Last Admin: 06/29/19 07:21 Dose: 2 puff Sertraline HCl (Zoloft*) 100 mg PO DAILY [facility] Last Admin: 06/29/19 09:30 Dose: 100 mg Tamsulosin HCl (Flomax Cap*) 0.4 mg PO DAILY [facility] Last Admin: 06/29/19 09:30 Dose: 0.4 mg Tiotropium [place] (Spiriva Respimat 2.5 Mcg) 2 puff INH DAILY [facility] Last Admin: 06/29/19 07:21 Dose: 2 puff Trazodone HCl (Desyrel Tab*) 50 mg PO BEDTIME [facility] Verapamil HCl (Calan Sr Tab*) 120 mg PO DAILY [facility] Last Admin: 06/29/19 09:30 Dose: 120 mg Vital Signs - 8 hr 06/29/19 06/29/19 06/29/19 07:15 07:24 08:00 Temperature 97.9 F Pulse Rate 66 72 Respiratory 18 18 18 Rate Blood Pressure 146/65 (mmHg) O2 Sat by Pulse 97 97 Oximetry 06/29/19 09:29 Temperature Pulse Rate Respiratory 18 Rate Blood Pressure (mmHg) O2 Sat by Pulse Oximetry Oxygen Devices in Use Now: Nasal Cannula Appearance: Alert, supine in bed. Cheerful, looks comfortable. Eyes: No Scleral Icterus Neck: NL Appearance and Movements; NL JVP, No Thyroid Enlargement, Masses Respiratory: Symmetrical Chest Expansion and Respiratory Effort, Clear to Auscultation, Clear to Percussion Cardiovascular: NL Sounds; No Murmurs; No JVD, RRR, No Edema, - Extremities: No Edema, No Clubbing, Cyanosis, - Skin: No Rash or Ulcers, No Nodules or Sclerosis, - Neurological: NL Sensation - Diminished memory. No tremor. Sociable. Result Diagrams: 06/27/19 05:23 06/28/19 07:11 Additional Lab and Data: Lab Results 06/25/19 06/25/19 06/25/19 Range/Units 09:48 09:48 09:48 WBC 15.4 H (3.5-10.8) 10^3/uL RBC 4.08 L (4.18-5.48) 10^6 /uL Hgb 13.6 L (14.0-18.0) g/dL Hct 41 L (42-52) % MCV 101 H (80-94) fL MCH 33 H (27-31) pg MCHC 33 (31-36) g/dL RDW 16 H (10-15) % Plt Count 276 (150-450) 10^3/uL MPV 8.2 (7.4-10.4) fL Neut % (Auto) 91.6 % Lymph % (Auto) 2.3 % [place] % (Auto) 5.5 % Eos % (Auto) 0.3 % Baso % (Auto) 0.3 % Absolute Neuts (auto) 14.1 H (1.5-7.7) 10^3/ul Absolute Lymphs (auto) 0.4 L (1.0-4.8) 10^3/ul Absolute Monos (auto) 0.8 (0-0.8) 10^3/ul Absolute Eos (auto) 0.1 (0-0.6) 10^3/ul Absolute Basos (auto) 0.0 (0-0.2) 10^3/ul Absolute Nucleated RBC 0.0 10^3/ul Nucleated RBC % 0.0 ABG pH (7.35-7.45) ABG pCO2 (35-45) mmHg ABG pO2 (80-100) mmHg ABG HCO3 (19-31) mmol/L ABG O2 Saturation (94.0-98.0) % ABG Base Excess (-2.0-2.0) mmol/L Sodium 139 (135-145) mmol/L Potassium 4.4 (3.5-5.0) mmol/L Chloride 101 (101-111) mmol/L Carbon Dioxide 30 (22-32) mmol/L Anion Gap 8 (2-11) mmol/L BUN 9 (6-24) mg/dL Creatinine 0.60 L (0.67-1.17) mg/dL Est GFR ( Amer) 159.4 (>60) Est GFR (Non-Af Amer) 131.7 (>60) BUN/Creatinine Ratio 15.0 (8-20) Glucose 100 (70-100) mg/dL Lactic Acid 1.2 (0.5-2.0) mmol/L Calcium 8.8 (8.6-10.3) mg/dL Magnesium Pending Total Bilirubin 0.70 (0.2-1.0) mg/dL AST 12 L (13-39) U/L ALT 4 L (7-52) U/L Alkaline Phosphatase 100 (34-104) U/L Troponin I 0.01 (<0.03) ng/mL B-Natriuretic Peptide (<=100) pg/mL Total Protein 6.3 L (6.4-8.9) g/dL Albumin 3.2 (3.2-5.2) g/dL Globulin 3.1 (2-4) g/dL Albumin/Globulin Ratio 1.0 (1-3) 06/25/19 06/25/19 Range/Units 09:48 09:50 WBC (3.5-10.8) 10^3/uL RBC (4.18-5.48) 10^6 /uL Hgb (14.0-18.0) g/dL Hct (42-52) % MCV (80-94) fL MCH (27-31) pg MCHC (31-36) g/dL RDW (10-15) % Plt Count (150-450) 10^3/uL MPV (7.4-10.4) fL Neut % (Auto) % Lymph % (Auto) % [place] % (Auto) % Eos % (Auto) % Baso % (Auto) % Absolute Neuts (auto) (1.5-7.7) 10^3/ul Absolute Lymphs (auto) (1.0-4.8) 10^3/ul Absolute Monos (auto) (0-0.8) 10^3/ul Absolute Eos (auto) (0-0.6) 10^3/ul Absolute Basos (auto) (0-0.2) 10^3/ul Absolute Nucleated RBC 10^3/ul Nucleated RBC % ABG pH 7.37 (7.35-7.45) ABG pCO2 52 H (35-45) mmHg ABG pO2 50 L* (80-100) mmHg ABG HCO3 27.3 (19-31) mmol/L ABG O2 Saturation 86.7 L (94.0-98.0) % ABG Base Excess 3.6 H (-2.0-2.0) mmol/L Sodium (135-145) mmol/L Potassium (3.5-5.0) mmol/L Chloride (101-111) mmol/L Carbon Dioxide (22-32) mmol/L Anion Gap (2-11) mmol/L BUN (6-24) mg/dL Creatinine (0.67-1.17) mg/dL Est GFR ( Amer) (>60) Est GFR (Non-Af Amer) (>60) BUN/Creatinine Ratio (8-20) Glucose (70-100) mg/dL Lactic Acid (0.5-2.0) mmol/L Calcium (8.6-10.3) mg/dL Magnesium Total Bilirubin (0.2-1.0) mg/dL AST (13-39) U/L ALT (7-52) U/L Alkaline Phosphatase (34-104) U/L Troponin I (<0.03) ng/mL B-Natriuretic Peptide 36 (<=100) pg/mL Total Protein (6.4-8.9) g/dL Albumin (3.2-5.2) g/dL Globulin (2-4) g/dL Albumin/Globulin Ratio (1-3) Microbiology and Other Data: Microbiology 06/25/19 11:00 Gram Stain - Final Sputum Expectorated 06/25/19 10:27 Aerobic Blood Culture - Preliminary Blood Venous No Growth Day 1 Anaerobic Blood Culture - Preliminary No Growth Day 1 06/25/19 10:16 Aerobic Blood Culture - Preliminary Blood Venous No Growth Day 1 Anaerobic Blood Culture - Preliminary No Growth Day 1 06/25/19 16:00 Legionella Urinary Antigen - Final Urine Negative Legionella Antigen Streptococcus pneumoniae Ag Screen - Final Negative S. pneumo Antigen Assess/Plan/Problems-Billing Assessment: Mr Hodge is a 73yo M with PMH of COPD, dementia, depression, HTN, DJD, type 2 DM , who presented to ED with c/o weakness, found to have pneumonia. - Patient Problems (1) Pneumonia Current Visit: Yes Status: Acute Code(s): J18.9 - PNEUMONIA, UNSPECIFIED ORGANISM SNOMED Code(s): 680521760 Comment: - CxR shows RLL infiltrate. O2 sat 87-88% on RA by ks 06/28/19. - Blood cultures show no growth so far, sputum is pending, Legionella and pneumococcal Ag as well as Flu are negative. - Continue Ceftriaxone. (2) Tick bite Current Visit: Yes Status: Acute Code(s): W57.XXXA - BIT/STUNG BY NONVENOM INSECT & OTH NONVENOM ARTHROPODS, INIT SNOMED Code(s): 25655914 Comment: - Tick was removed, there is no rash, and he received 1 dose of Doxycycline. - D/w ID - no indication for serology or tick examination or further doxy. (3) Tobacco abuse Current Visit: No Status: Acute Code(s): Z72.0 - TOBACCO USE SNOMED Code(s ): 192742449 Comment: - Pt declined nicotine replacement, cessation advised. does not smoke. (4) Physical deconditioning Current Visit: Yes Status: Acute Code(s): R53.81 - OTHER MALAISE SNOMED Code(s): 01245770505641 Comment: - PT evaluation appreciated. confirms that patient is too weak for her to care for him at home at present (06/28). Status and Disposition: Inpatient.
[2019-06-29] MEDS: Atorvastatin* 10 MG TAB PO SCH (20:55)
[2019-06-29] MEDS: traZODone TAB* 50 MG TAB PO SCH (20:56)
[2019-06-30] MEDS: Heparin VIAL(*) 5000 UNITS/ML VIAL (FIVE THOUSAND) SUBCUT SCH ×3 (06:18→21:23)
[2019-06-30] MEDS: Mometasone/Formoter 100/5 MDI INH SCH ×3 (07:09→19:28)
[2019-06-30] MEDS: SPIRIVA Respimat* (tiotropium) 2.5 mcg/inh Inhaler INH SCH (08:19)
[2019-06-30] MEDS: Gabapentin CAP(*) 300 MG PO SCH ×2 (10:20→20:43)
[2019-06-30] MEDS: Memantine XR CAP* 28 MG CAP.XR PO SCH (10:20)
[2019-06-30] MEDS: Aspirin EC TAB* 81 MG TAB.EC PO SCH (10:20)
[2019-06-30] MEDS: Verapamil SR TAB* 240 MG PO SCH (10:20)
[2019-06-30] MEDS: Sertraline* 100 MG TAB PO SCH (10:20)
[2019-06-30] MEDS: Cholecalciferol TAB* 1000 UNITS PO SCH (10:20)
[2019-06-30] MEDS: Magnesium Oxide TAB* 400 MG PO SCH (10:20)
[2019-06-30] MEDS: BuPROPion XL* 300 MG TAB.XL PO SCH (10:20)
[2019-06-30] MEDS: Tamsulosin CAP* 0.4 MG PO SCH (10:20)
[2019-06-30] MEDS: cefTRIAXone(*) 1 GM in NS 0.9% 50 ML* 50 ML IVPB SCH (10:22)
--- NOTE | 2019-06-30 12:22 | PN ---
Subjective Date of Service: 06/30/19 Interval History: No c/o. Family History: Unchanged from Admission Social History: Unchanged from Admission Past Medical History: Unchanged from Admission Objective Active Medications: Hydrocodone Bitart/Acetaminophen ([place] 5-325 Tab*) 1 tab PO Q12H PRN PRN Reason: PAIN - MODERATE Albuterol (Ventolin 2.5 Mg/3 Ml Neb.Ella*) 2.5 mg INH TID PRN PRN Reason: SOB/WHEEZING Last Admin: 06/28/19 21:16 Dose: 2.5 mg Aspirin (Aspirin Ec Tab*) 81 mg PO DAILY [facility] Last Admin: 06/30/19 10:20 Dose: 81 mg Atorvastatin Calcium (Lipitor*) 40 mg PO BEDTIME [facility] Last Admin: 06/29/19 20:55 Dose: 40 mg Bupropion HCl (Bupropion Xl*) 300 mg PO DAILY [facility] Last Admin: 06/30/19 10:20 Dose: 300 mg Cholecalciferol (Vitamin D Tab*) 2,000 units PO DAILY [facility] Last Admin: 06/30/19 10:20 Dose: 2,000 units Gabapentin (Neurontin Cap(*)) 400 mg PO BID [facility] Heparin Sodium (Porcine) (Heparin Vial(*)) 5,000 units SUBCUT Q8HR [facility] Last Admin: 06/30/19 06:18 Dose: 5,000 units Ceftriaxone Sodium 1 gm/ (Sodium Chloride) 50 mls @ 100 mls/hr IVPB Q24H [facility] Last Admin: 06/30/19 10:22 Dose: 100 mls/hr Levalbuterol HCl (Xopenex Hfa Inhaler*) 2 puff INH Q4H PRN PRN Reason: SHORTNESS OF BREATH Last Admin: 06/26/19 17:53 Dose: 2 puff Magnesium Oxide (Magox 400 Tab*) 800 mg PO DAILY@1100 [facility] Last Admin: 06/30/19 10:20 Dose: 800 mg Memantine (Namenda Xr Cap*) 28 mg PO DAILY [facility] Last Admin: 06/30/19 10:20 Dose: 28 mg Mometasone Furoate/Formoterol Fumar (Dulera 100/5 Mdi*) 2 puff INH BID [facility] Last Admin: 06/30/19 08:19 Dose: 2 puff Sertraline HCl (Zoloft*) 100 mg PO DAILY [facility] Last Admin: 06/30/19 10:20 Dose: 100 mg Tamsulosin HCl (Flomax Cap*) 0.4 mg PO DAILY [facility] Last Admin: 06/30/19 10:20 Dose: 0.4 mg Tiotropium [place] (Spiriva Respimat 2.5 Mcg) 2 puff INH DAILY [facility] Last Admin: 06/30/19 08:19 Dose: 2 puff Trazodone HCl (Desyrel Tab*) 50 mg PO BEDTIME [facility] Last Admin: 06/29/19 20:56 Dose: 50 mg Verapamil HCl (Calan Sr Tab*) 120 mg PO DAILY [facility] Last Admin: 06/30/19 10:20 Dose: 120 mg Vital Signs - 8 hr 06/30/19 06/30/19 06/30/19 07:22 08:00 08:21 Temperature 97.7 F Pulse Rate 81 84 Respiratory 20 20 16 Rate Blood Pressure 144/70 (mmHg) O2 Sat by Pulse 97 95 Oximetry 06/30/19 10:20 Temperature Pulse Rate Respiratory 16 Rate Blood Pressure (mmHg) O2 Sat by Pulse Oximetry Oxygen Devices in Use Now: Nasal Cannula Appearance: Alert, in a chair. In good spirits. Looks comfortable. Eyes: No Scleral Icterus Ears/Nose/Mouth/Throat: Clear Oropharnyx, Mucous Membranes Moist Neck: NL Appearance and Movements; NL JVP, No Thyroid Enlargement, Masses Respiratory: Symmetrical Chest Expansion and Respiratory Effort, Clear to Auscultation, Clear to Percussion Cardiovascular: NL Sounds; No Murmurs; No JVD, RRR, No Edema, - Neurological: NL Sensation - Gave his age as 72. Diminished memory Result Diagrams: 06/27/19 05:23 06/28/19 07:11 Additional Lab and Data: Lab Results 06/25/19 06/25/19 06/25/19 Range/Units 09:48 09:48 09:48 WBC 15.4 H (3.5-10.8) 10^3/uL RBC 4.08 L (4.18-5.48) 10^6 /uL Hgb 13.6 L (14.0-18.0) g/dL Hct 41 L (42-52) % MCV 101 H (80-94) fL MCH 33 H (27-31) pg MCHC 33 (31-36) g/dL RDW 16 H (10-15) % Plt Count 276 (150-450) 10^3/uL MPV 8.2 (7.4-10.4) fL Neut % (Auto) 91.6 % Lymph % (Auto) 2.3 % [place] % (Auto) 5.5 % Eos % (Auto) 0.3 % Baso % (Auto) 0.3 % Absolute Neuts (auto) 14.1 H (1.5-7.7) 10^3/ul Absolute Lymphs (auto) 0.4 L (1.0-4.8) 10^3/ul Absolute Monos (auto) 0.8 (0-0.8) 10^3/ul Absolute Eos (auto) 0.1 (0-0.6) 10^3/ul Absolute Basos (auto) 0.0 (0-0.2) 10^3/ul Absolute Nucleated RBC 0.0 10^3/ul Nucleated RBC % 0.0 ABG pH (7.35-7.45) ABG pCO2 (35-45) mmHg ABG pO2 (80-100) mmHg ABG HCO3 (19-31) mmol/L ABG O2 Saturation (94.0-98.0) % ABG Base Excess (-2.0-2.0) mmol/L Sodium 139 (135-145) mmol/L Potassium 4.4 (3.5-5.0) mmol/L Chloride 101 (101-111) mmol/L Carbon Dioxide 30 (22-32) mmol/L Anion Gap 8 (2-11) mmol/L BUN 9 (6-24) mg/dL Creatinine 0.60 L (0.67-1.17) mg/dL Est GFR ( Amer) 159.4 (>60) Est GFR (Non-Af Amer) 131.7 (>60) BUN/Creatinine Ratio 15.0 (8-20) Glucose 100 (70-100) mg/dL Lactic Acid 1.2 (0.5-2.0) mmol/L Calcium 8.8 (8.6-10.3) mg/dL Magnesium Pending Total Bilirubin 0.70 (0.2-1.0) mg/dL AST 12 L (13-39) U/L ALT 4 L (7-52) U/L Alkaline Phosphatase 100 (34-104) U/L Troponin I 0.01 (<0.03) ng/mL B-Natriuretic Peptide (<=100) pg/mL Total Protein 6.3 L (6.4-8.9) g/dL Albumin 3.2 (3.2-5.2) g/dL Globulin 3.1 (2-4) g/dL Albumin/Globulin Ratio 1.0 (1-3) 06/25/19 06/25/19 Range/Units 09:48 09:50 WBC (3.5-10.8) 10^3/uL RBC (4.18-5.48) 10^6 /uL Hgb (14.0-18.0) g/dL Hct (42-52) % MCV (80-94) fL MCH (27-31) pg MCHC (31-36) g/dL RDW (10-15) % Plt Count (150-450) 10^3/uL MPV (7.4-10.4) fL Neut % (Auto) % Lymph % (Auto) % [place] % (Auto) % Eos % (Auto) % Baso % (Auto) % Absolute Neuts (auto) (1.5-7.7) 10^3/ul Absolute Lymphs (auto) (1.0-4.8) 10^3/ul Absolute Monos (auto) (0-0.8) 10^3/ul Absolute Eos (auto) (0-0.6) 10^3/ul Absolute Basos (auto) (0-0.2) 10^3/ul Absolute Nucleated RBC 10^3/ul Nucleated RBC % ABG pH 7.37 (7.35-7.45) ABG pCO2 52 H (35-45) mmHg ABG pO2 50 L* (80-100) mmHg ABG HCO3 27.3 (19-31) mmol/L ABG O2 Saturation 86.7 L (94.0-98.0) % ABG Base Excess 3.6 H (-2.0-2.0) mmol/L Sodium (135-145) mmol/L Potassium (3.5-5.0) mmol/L Chloride (101-111) mmol/L Carbon Dioxide (22-32) mmol/L Anion Gap (2-11) mmol/L BUN (6-24) mg/dL Creatinine (0.67-1.17) mg/dL Est GFR ( Amer) (>60) Est GFR (Non-Af Amer) (>60) BUN/Creatinine Ratio (8-20) Glucose (70-100) mg/dL Lactic Acid (0.5-2.0) mmol/L Calcium (8.6-10.3) mg/dL Magnesium Total Bilirubin (0.2-1.0) mg/dL AST (13-39) U/L ALT (7-52) U/L Alkaline Phosphatase (34-104) U/L Troponin I (<0.03) ng/mL B-Natriuretic Peptide 36 (<=100) pg/mL Total Protein (6.4-8.9) g/dL Albumin (3.2-5.2) g/dL Globulin (2-4) g/dL Albumin/Globulin Ratio (1-3) Microbiology and Other Data: Microbiology 06/25/19 11:00 Gram Stain - Final Sputum Expectorated 06/25/19 10:27 Aerobic Blood Culture - Preliminary Blood Venous No Growth Day 1 Anaerobic Blood Culture - Preliminary No Growth Day 1 06/25/19 10:16 Aerobic Blood Culture - Preliminary Blood Venous No Growth Day 1 Anaerobic Blood Culture - Preliminary No Growth Day 1 06/25/19 16:00 Legionella Urinary Antigen - Final Urine Negative Legionella Antigen Streptococcus pneumoniae Ag Screen - Final Negative S. pneumo Antigen Assess/Plan/Problems-Billing Assessment: Mr Hodge is a 73yo M with PMH of COPD, dementia, depression, HTN, DJD, type 2 DM , who presented to ED with c/o weakness, found to have pneumonia. - Patient Problems (1) Pneumonia Current Visit: Yes Status: Acute Code(s): J18.9 - PNEUMONIA, UNSPECIFIED ORGANISM SNOMED Code(s): 004818047 Comment: - CxR shows RLL infiltrate. O2 sat 87-88% on RA by me 06/28/19. - Blood cultures show no growth so far, Legionella and pneumococcal Ag as well as Flu are negative. - Continue Ceftriaxone. (2) Tick bite Current Visit: Yes Status: Acute Code(s): W57.XXXA - BIT/STUNG BY NONVENOM INSECT & OTH NONVENOM ARTHROPODS, INIT SNOMED Code(s): 56137620 Comment: - Tick was removed, there is no rash, and he received 1 dose of Doxycycline. - D/w ID - no indication for serology or tick examination or further doxy. (3) Tobacco abuse Current Visit: No Status: Acute Code(s): Z72.0 - TOBACCO USE SNOMED Code(s ): 518770744 Comment: - Pt declined nicotine replacement, cessation advised. does not smoke. (4) Physical deconditioning Current Visit: Yes Status: Acute Code(s): R53.81 - OTHER MALAISE SNOMED Code(s): 95776560179823 Comment: - PT evaluation appreciated. confirms that patient is too weak for her to care for him at home at present (06/28). (5) Dementia Current Visit: No Status: Acute Code(s): F03.90 - UNSPECIFIED DEMENTIA WITHOUT BEHAVIORAL DISTURBANCE SNOMED Code(s): 99342137 Comment: - Patient of Dr. Larios in the past, may likely be vascular-type dementia -Continue memantine. Reduce gabapentin. Consider GDR gabapentin, trazadone, sertraline. Status and Disposition: Inpatient.
[2019-06-30] MEDS: Gabapentin CAP(*) 100 MG PO SCH (20:43)
[2019-06-30] MEDS: traZODone TAB* 50 MG TAB PO SCH (20:44)
[2019-06-30] MEDS: Atorvastatin* 10 MG TAB PO SCH (20:44)
[2019-07-01] MEDS: Heparin VIAL(*) 5000 UNITS/ML VIAL (FIVE THOUSAND) SUBCUT SCH (05:55)
[2019-07-01] MEDS: SPIRIVA Respimat* (tiotropium) 2.5 mcg/inh Inhaler INH SCH (07:34)
[2019-07-01] MEDS: Mometasone/Formoter 100/5 MDI INH SCH (07:34)
[2019-07-01] MEDS: Sertraline* 100 MG TAB PO SCH (07:50)
[2019-07-01] MEDS: Memantine XR CAP* 28 MG CAP.XR PO SCH (07:50)
[2019-07-01] MEDS: Tamsulosin CAP* 0.4 MG PO SCH (07:50)
[2019-07-01] MEDS: Gabapentin CAP(*) 300 MG PO SCH (07:50)
[2019-07-01] MEDS: Gabapentin CAP(*) 100 MG PO SCH (07:50)
[2019-07-01] MEDS: Cholecalciferol TAB* 1000 UNITS PO SCH (07:50)
[2019-07-01] MEDS: Aspirin EC TAB* 81 MG TAB.EC PO SCH (07:50)
[2019-07-01] MEDS: BuPROPion XL* 300 MG TAB.XL PO SCH (07:51)
[2019-07-01] MEDS: Verapamil SR TAB* 240 MG PO SCH (07:51)
--- NOTE | 2019-07-01 10:14 | PN ---
Progress Note - Progress Note Date of Service: 07/01/19 Note: Time spent on discharge including exam of patient, discussion with patient, , nurse, CM, review of EHR and preparation of discharge docuements is 45 mionutes.
--- NOTE | 2019-07-01 11:11 | TRS ---
CC: Dr. Padma Clark * DATE OF ADMISSION: 06/26/2019. DATE OF TRANSFER: 07/01/2019. HISTORY OF PRESENT ILLNESS: The patient presented with weakness and hypoxia. He has a history of COPD, dementia, and depressive disorder. He was hypoxic on route. He was found to have right lower lobe pneumonia. He was started on Azithromycin and Ceftriaxone. He did well in the hospital; however, he was not very motivated to get up and became quite weak and will need short-term rehab in order to get strong enough to go home. I did reduce his Gabapentin and Trazodone doses while he was here. I would consider dose reduction of his Sertraline, Trazodone, and Gabapentin as indicated. FINAL DIAGNOSES: 1. Pneumonia. 2. Tobacco abuse. 3. Dementia. DISCHARGE MEDICATIONS: 1. Gabapentin 100 mg b.i.d. 2. Magnesium Oxide 400 mg daily. 3. Trazodone 50 mg at bedtime. 4. Cefuroxime 500 mg b.i.d. for two days. 5. Bupropion SR 300 mg daily. 6. Pravastatin 40 mg at bedtime. 7. Verapamil 120 mg daily. 8. Budesonide/Formoterol 80/4.5 two puffs twice daily. 9. Sertraline 100 mg daily. 10. Memantine XR 28 mg daily. 11. Tamsulosin 0.4 mg daily. 12. Aspirin 81 mg daily. 13. Hydrocodone/acetaminophen 5/325 one every 12 hours prn. 14. Vitamin D 2,000 units daily. 15. Levalbuterol inhaler two puffs every 4 hours prn. 16. Albuterol via inhaler 2.5 mg t.i.d. DISPOSITION ON DISCHARGE: Discharged to [facility]. CONDITION ON DISCHARGE: Stable. [id number]/[facility] #: [id number] [facility]
[2019-07-01] MEDS: cefTRIAXone(*) 1 GM in NS 0.9% 50 ML* 50 ML IVPB SCH (11:16)
[2019-07-01] MEDS: Magnesium Oxide TAB* 400 MG PO SCH (11:21)
[2019-07-01 12:57] VITALS: BP 119/55
== END 2019-07-01 14:00 | DRG 871 ==
LOC: ED 09:24 → MED 12:04 → OBSVTOIN 06-26 17:28
PROVIDERS: ADMIT Internal Medicine; ATTEND Internal Medicine
DX: A41.9 Sepsis, unspecified organism (principal); J18.9 Pneumonia, unspecified organism; J96.01 Acute respiratory failure with hypoxia; J44.0 Chronic obstructive pulmonary disease with (acute) lower respiratory infection; E87.1 Hypo-osmolality and hyponatremia; J44.1 Chronic obstructive pulmonary disease with (acute) exacerbation; M19.90 Unspecified osteoarthritis, unspecified site; F03.90 Unspecified dementia, unspecified severity, without behavioral disturbance, psychotic disturbance, mood disturbance, and anxiety; G43.909 Migraine, unspecified, not intractable, without status migrainosus; F32.9 Major depressive disorder, single episode, unspecified; F17.210 Nicotine dependence, cigarettes, uncomplicated; E11.9 Type 2 diabetes mellitus without complications; E66.9 Obesity, unspecified; I50.9 Heart failure, unspecified; I11.0 Hypertensive heart disease with heart failure; E83.42 Hypomagnesemia; N40.0 Benign prostatic hyperplasia without lower urinary tract symptoms; W57.XXXA Bitten or stung by nonvenomous insect and other nonvenomous arthropods, initial encounter; Z66 Do not resuscitate; R79.89 Other specified abnormal findings of blood chemistry; I49.3 Ventricular premature depolarization; Z68.23 Body mass index [BMI] 23.0-23.9, adult
CPT/HCPCS: 36415; 71045; 80048; 80053; 82803; 83605; 83735; 83880; 84443; 84484; 85025; 87040; 87070; 87077; 87106; 87150; 87186; 87205; 87899; 93005; 93306; 94640; 99285; 99406; A9270-GY; J0456; J0696; J1644; J3475; J3535; J7512